=== PATIENT | male | born 1935 | race Caucasian/White ===

== ENCOUNTER 2017-07-28 12:37 | Emergency (ER) | payer OTHER ==
--- OUTSIDE RECORDS SUMMARY | 2017-07-28 12:41 | XMS REPORT | Clinical Summary ---
:1935 Author Organization [facility] Address [address] [place] [address] Phone Care Team Providers Name Role Phone Unavailable Primary Care Provider Unavailable Allergies No Known Allergies Current Medications Prescription Sig. Disp. Refills Start Date End Date Status atorvastatin (LIPITOR) 20 Take 20 mg by mouth Active MG tablet daily. multivitamin per tablet Take 1 tablet by Active mouth daily. Active Problems Not on file Social History Tobacco Use Types Packs/Day Years Used Date Never Smoker Smokeless Tobacco: Never Used Alcohol Use Drinks/Week oz/Week Comments Yes 1 Cans of beer 0.6 Sex Assigned at Date Recorded Not on file Last Filed Vital Signs Not on file Plan of Treatment Not on file Results Not on fileafter 07/27/2016
[2017-07-28 13:46] LABS: Absolute Lymphocytes (CBC) 1.2 K/uL (0.7-4.9); Absolute Monocytes 0.7 K/uL (0.1-1.3); Absolute Neutrophil 5.2 K/uL (1.8-8.0); Basophils % 0.7 % (0-1.3); Eosinophils % 0.7 % (0-4.4); Hematocrit 41.6 % (39.6-49.0); Lymphocytes % 16.9 % (15.3-44.8); MCH 30.9 pg (27.0-35.0); MCV 92.6 fL (80-100); MPV 8.8 fL (7.6-11.3); Monocytes % 9.6 % (3.3-12.3); RBC Red Blood Cell Count 4.49 M/uL (4.33-5.43)
[2017-07-28 13:48] LABS: Potassium 3.5 mEq/L (3.6-5.0)
[2017-07-28 13:52] LABS: Protime INR 1.02
[2017-07-28 13:54] LABS: Albumin 4.1 g/dL (3.2-5.5); Bilirubin Direct 0.1 mg/dL (0-0.2); Bilirubin Total 0.9 mg/dL (0.3-1.2); Magnesium 2.2 mg/dL (1.8-2.5); Protein, Total 6.8 g/dL (6.0-8.3)
--- NOTE | 2017-07-28 15:18 | RAD REPORT ---
EXAM DESCRIPTION: CT - Head Brain Wo Cont - 07/28/2017 2:42 pm CLINICAL HISTORY: Syncope, hypertension COMPARISON: CT March 2012 TECHNIQUE: Axial 5 mm thick images of the head were obtained without IV contrast. All CT scans are performed using dose optimization technique as appropriate and may include automated exposure control or mA/KV adjustment according to patient size. FINDINGS: No intracranial hemorrhage, mass, edema or shift of mid-line structures. Moderate atrophy and moderate chronic ischemic changes are present minimally progressive from 2012. No abnormal extra- axial fluid collections. Ventricles are in proportion to the volume loss. Arterial and physiologic ca lcifications are present. Mastoid air cells and visualized portions of the paranasal sinuses are clear. No acute bony findings. IMPRESSION: Atrophy and chronic ischemic changes are present mildly progressive from 2011. No acute intracranial finding.
--- NOTE | 2017-07-28 15:23 | RAD REPORT ---
EXAM DESCRIPTION: RAD - Chest Single View - 07/28/2017 2:23 pm CLINICAL HISTORY: Chest pain, altered mental status COMPARISON: March 2012 TECHNIQUE: AP portable chest image was obtained 1419 hours . FINDINGS: No failure, infiltrate or focal lung mass seen. Lung markings are similar to the compariso n. Trachea is midline. Heart and vasculature are normal. No measurable pleural effusion and no pneumo thorax. No gross bony abnormality seen. No acute aortic findings suspected. IMPRESSION: No acute cardiopulmonary process. No significant interval change.
--- NOTE | 2017-07-28 15:33 | ER ---
Nurse's Notes [facility] Name: Gigi Bar Age: 82 yrs Sex: Male : 1935 Arrival Date: 07/28/2017 Time: 12:40 Bed 8 Private MD: Diagnosis: Dehydration Presentation: 07/28 12:40 Presenting complaint: EMS states: Pt was doing yard work earlier to today and got la1 disoriented. When he got home he tried to sit on the coffee table and fell over injuring his right ear. -LOC, Pt alert, oriented x4. EMS reports + orthorstatics in the field. Transition of care: patient was not received from another setting of care. Onset of symptoms was July 28, 2017. Initial Sepsis Screen: Does the patient meet any 2 criteria? No. Patient's initial sepsis screen is negative. Does the patient have a suspected source of infection? No. Patient's initial sepsis screen is negative. Care prior to arrival: None. 12:40 Method Of Arrival: EMS: [facility] la1 12:40 Acuity: NATALIE 3 la1 Historical: - Allergies: 12:42 No Known Allergies; la1 - Home Meds: 12:57 metoprolol tartrate 50 mg Oral tab 1 tab 2 times per day [Active]; Norvasc Oral BID la1 [Active]; lisinopril 20 mg Oral tab 1 tab once daily [Active]; Lasix 40 mg Oral tab 1 tab once daily [Active]; Lipitor 40 mg Oral tab 1 tab once daily [Active]; hydrochlorothiazide 12.5 mg Oral cap 1 cap once daily [Active]; - PMHx: 12:42 Hypertension; la1 - Immunization history:: Adult Immunizations up to date. - Social history:: Smoking status: Patient/guardian denies using tobacco. Screenin:49 Abuse screen: Denies threats or abuse. Nutritional screening: No deficits noted. la1 Tuberculosis screening: No symptoms or risk factors identified. Fall Risk None identified. Assessment: 12:48 General: Appears in no apparent distress. Behavior is calm, cooperative. Pain: Denies la1 pain. Neuro: Level of Consciousness is awake, alert, obeys commands, Oriented to person, place, time, situation, Speech is normal, Facial symmetry appears normal, Pupils are PERRLA. Cardiovascular: Denies shortness of breath, Heart tones S1 S2 present Capillary refill < 3 seconds. Respiratory: Airway is patent Trachea midline Respiratory effort is even, unlabored, Respiratory pattern is regular, symmetrical, Breath sounds are clear bilaterally. GI: Abdomen is round non-distended. : No signs and/or symptoms were reported regarding the genitourinary system. 14:39 Reassessment: Patient appears in no apparent distress at this time. No changes from la1 previously documented assessment. Patient and/or family updated on plan of care and expected duration. Pain level reassessed. Patient is alert, oriented x 3, equal unlabored respirations, skin warm/dry/pink. 15:29 Reassessment: Patient appears in no apparent distress at this time. No changes from la1 previously documented assessment. Patient and/or family updated on plan of care and expected duration. Pain level reassessed. Patient is alert, oriented x 3, equal unlabored respirations, skin warm/dry/pink. Vital Signs: 12:43 BP 124 / 74; Pulse 57; Resp 16; Pulse Ox 100% on R/A; la1 12:55 Temp 98.2(O); la1 13:22 BP 116 / 69; Pulse 58; Resp 16 S; Pulse Ox 98% on R/A; ae1 13:35 BP 116 / 69 Supine; Pulse 60; la1 13:35 BP 135 / 70 Sitting; Pulse 59; la1 13:35 BP 116 / 63 Standing; Pulse 51; la1 14:39 BP 127 / 74; Pulse 81; Resp 16; Pulse Ox 100% on R/A; la1 15:28 BP 125 / 71; Pulse 81; Resp 16; Pulse Ox 100% on R/A; la1 ED Course: 12:40 Patient arrived in ED. pt 12:40 Jack Ross, ELIAS is Primary Nurse. la1 12:41 Triage completed. la1 12:42 Arm band placed on left wrist. la1 12:47 Darrion Lopez PA is PHCP. jr8 12:47 Chris Woodard MD is Attending Physician. jr8 12:48 No provider procedures requiring assistance completed. Maintain EMS IV. Site clean \T\ la1 dry. Gauge \T\ site: 20g RFA. 12:49 Bed in low position. Call light in reach. Side rails up X 1. la1 12:58 EKG done, by ED staff, reviewed by Darrion RAMSEY. jb1 14:20 X-ray completed. Portable x-ray completed in exam room. Patient tolerated procedure jb2 well. 14:21 XRAY Chest (1 view) In Process Unspecified. EDMS 14:[address] j 14:42 CT completed. Patient tolerated procedure well. Patient moved back from CT. nj 14:43 Head Brain Wo Cont CT In Process Unspecified. EDMS 15:43 IV discontinued, intact, bleeding controlled, No redness/swelling at site. Pressure la1 dressing applied. Administered Medications: No medications were administered Outcome: 15:32 Discharge ordered by . jr8 15:43 Discharged to home ambulatory. la1 15:43 Condition: stable 15:43 Discharge instructions given to patient, Instructed on discharge instructions, follow up and referral plans. medication usage, Demonstrated understanding of instructions, follow-up care. 15:43 Patient left the ED. la1 Signatures: Dispatcher [employer] EDMS Nestor Long jb1 Barbara Ruiz, Freddy Reynolds RN, pt2 Bonnie Leyva j Darrion Lopez PA PA jr8 Jack Ross RN RN la1 Dov Francisco RN RN ae1 Ariel Pang
--- NOTE | 2017-07-28 15:33 | EDPHYS ---
Physician Documentation [facility] Name: Gigi Bar Age: 82 yrs Sex: Male : 1935 Arrival Date: 07/28/2017 Time: 12:40 Bed 8 Private MD: ED Physician Chris Woodard HPI: 07/28 13:54 This 82 yrs old Male presents to ER via EMS with complaints of Near Syncope. jr8 13:54 The patient has experienced near-syncope. Onset: The symptoms/episode began/occurred jr8 acutely, today. Duration: This was a single episode. Context: the episode(s) was witnessed, by a bystander, by family. Associated signs and symptoms: Pertinent positives: dizziness. Current symptoms: Currently, the patient is not experiencing any symptoms, the patient feels back to baseline, no decreased level of consciousness, no confusion, no dysphasia, no headache, no paralysis, no visual changes. The patient has not experienced similar symptoms in the past. The patient has not recently seen a physician. Patient stated that he was working in [employer]. Left to go to [employer] to get some coffee. Stated that while at [employer] started to feel dizzy. EMS was called but refused transport. Noted on seen to have orthostatic changes. Patient drove himself home. While at home was going to sit down but sat on coffee table per then fell over hitting head on [employer] fireplace. Was convinced to come in at that time. Patient now back to baseline per family . Historical: - Allergies: 12:42 No Known Allergies; la1 - Home Meds: 12:57 metoprolol tartrate 50 mg Oral tab 1 tab 2 times per day [Active]; Norvasc Oral BID la1 [Active]; lisinopril 20 mg Oral tab 1 tab once daily [Active]; Lasix 40 mg Oral tab 1 tab once daily [Active]; Lipitor 40 mg Oral tab 1 tab once daily [Active]; hydrochlorothiazide 12.5 mg Oral cap 1 cap once daily [Active]; - PMHx: 12:42 Hypertension; la1 - Immunization history:: Adult Immunizations up to date. - Social history:: Smoking status: Patient/guardian denies using tobacco. ROS: 13:54 Eyes: Negative for injury, pain, redness, and discharge, ENT: Negative for injury, jr8 pain, and discharge, Neck: Negative for injury, pain, and swelling, Cardiovascular: Negative for chest pain, palpitations, and edema, Respiratory: Negative for shortness of breath, cough, wheezing, and pleuritic chest pain, Abdomen/GI: Negative for abdominal pain, nausea, vomiting, diarrhea, and constipation, Back: Negative for injury and pain, MS/Extremity: Negative for injury and deformity, Skin: Negative for injury, rash, and discoloration. 13:54 Neuro: Positive for dizziness, near syncope. Exam: 13:54 Eyes: Pupils equal round and reactive to light, extra-ocular motions intact. Lids and jr8 lashes normal. Conjunctiva and sclera are non-icteric and not injected. Cornea within normal limits. Periorbital areas with no swelling, redness, or edema. ENT: Nares patent. No nasal discharge, no septal abnormalities noted. Tympanic membranes are normal and external auditory canals are clear. Oropharynx with no redness, swelling, or masses, exudates, or evidence of obstruction, uvula midline. Mucous membranes moist. Neck: Trachea midline, no thyromegaly or masses palpated, and no cervical lymphadenopathy. Supple, full range of motion without nuchal rigidity, or vertebral point tenderness. No Meningismus. Cardiovascular: Regular rate and rhythm with a normal S1 and S2. No gallops, murmurs, or rubs. Normal PMI, no JVD. No pulse deficits. Respiratory: Lungs have equal breath sounds bilaterally, clear to auscultation and percussion. No rales, rhonchi or wheezes noted. No increased work of breathing, no retractions or nasal flaring. Abdomen/GI: Soft, non-tender, with normal bowel sounds. No distension or tympany. No guarding or rebound. No evidence of tenderness throughout. Back: No spinal tenderness. No costovertebral tenderness. Full range of motion. Skin: Warm, dry with normal turgor. Normal color with no rashes, no lesions, and no evidence of cellulitis. MS/ Extremity: Pulses equal, no cyanosis. Neurovascular intact. Full, normal range of motion. Neuro: Awake and alert, GCS 15, oriented to person, place, time, and situation. Cranial nerves II-XII grossly intact. Motor strength 5/5 in all extremities. Sensory grossly intact. Cerebellar exam normal. Normal gait. Vital Signs: 12:43 BP 124 / 74; Pulse 57; Resp 16; Pulse Ox 100% on R/A; la1 12:55 Temp 98.2(O); la1 13:22 BP 116 / 69; Pulse 58; Resp 16 S; Pulse Ox 98% on R/A; ae1 13:35 BP 116 / 69 Supine; Pulse 60; la1 13:35 BP 135 / 70 Sitting; Pulse 59; la1 13:35 BP 116 / 63 Standing; Pulse 51; la1 14:39 BP 127 / 74; Pulse 81; Resp 16; Pulse Ox 100% on R/A; la1 15:28 BP 125 / 71; Pulse 81; Resp 16; Pulse Ox 100% on R/A; la1 MDM: 12:47 Patient medically screened. jr8 15:28 Data reviewed: vital signs, nurses notes, lab test result(s), EKG, radiologic studies, jr8 plain films, and as a result, I will discharge patient. Data interpreted: Pulse oximetry: on room air is 100 %. Interpretation: normal. Counseling: I had a detailed discussion with the patient and/or guardian regarding: the historical points, exam findings, and any diagnostic results supporting the discharge/admit diagnosis, lab results, radiology results, the need for outpatient follow up, a family practitioner, to return to the emergency department if symptoms worsen or persist or if there are any questions or concerns that arise at home. ED course: Patient with minimal orthostatic changes earlier. After fluids normalized. Patient stable and without any s/s. Will send home to rest and replete with fluids. If he were to worsen again to come back to ED . 07/28 13:12 Order name: Basic Metabolic Panel; Complete Time: 13:56 07/28 13:12 Order name: BNP; Complete Time: 14:43 07/28 13:12 Order name: CBC with Diff; Complete Time: 13:47 07/28 13:12 Order name: LFT's; Complete Time: 13:56 07/28 13:12 Order name: Magnesium; Complete Time: 13:56 07/28 13:12 Order name: PT-INR; Complete Time: 14:29 07/28 13:07 Order name: EKG; Complete Time: 13:08 07/28 13:07 Order name: EKG - Nurse/Tech; Complete Time: 13:07 07/28 13:12 Order name: Troponin (emerg Dept Use Only); Complete Time: 13:56 07/28 13:12 Order name: XRAY Chest (1 view); Complete Time: 15:27 07/28 13:12 Order name: Cardiac monitoring; Complete Time: 13:13 07/28 13:12 Order name: IV Saline Lock; Complete Time: 13:13 07/28 14:26 Order name: Head Brain Wo Cont CT; Complete Time: 15:22 07/28 14:27 Order name: Diet Regular; Complete Time: 14:27 07/28 13:12 Order name: Labs collected and sent; Complete Time: 13:07/28 13:12 Order name: O2 Per Protocol; Complete Time: 13:28 07/28 13:12 Order name: O2 Sat Monitoring; Complete Time: 13:28 07/28 13:12 Order name: Urine Dipstick-Ancillary (obtain specimen); Complete Time: 15:42 07/28 13:12 Order name: Orthostatics; Complete Time: 14:25 Administered Medications: No medications were administered Disposition: 17:19 Co-signature as Attending Physician, Chris Woodard MD I agree with the assessment and kdr plan of care. Disposition: 07/28/17 15:32 Discharged to Home. Impression: Dehydration. - Condition is Stable. - Discharge Instructions: Dehydration, Elderly. - Medication Reconciliation Form, Thank You Letter, Antibiotic Education, Prescription Opioid Use form. - Follow up: Private Physician; When: 2 - 3 days; Reason: Recheck today's complaints, Continuance of care, Re-evaluation by your physician. - Problem is new. - Symptoms have improved. Signatures: Dispatcher [employer] EDChris Vazquez MD MD kdr Roszak, Josh, PA PA jr8 Jack Ross RN RN la1
[2017-07-28 15:52] VITALS: TEMP 98.2
[2017-07-28 15:56] VITALS: O2SAT 100
[2017-07-28 15:57] VITALS: BP 125/71
--- NOTE | 2017-07-28 16:24 | EKG ---
Test Date: 2017-07-28 Test Time: 12:50:45 Pharmacy Intake Coordinator: HAYLEY MEASUREMENT RESULTS: Intervals: Rate: 58 IN: 208 QRSD: 104 QT: 458 QTc: 449 [place]: P: 43 IN: 208 QRS: 28 T: 42 INTERPRETIVE STATEMENTS: Sinus bradycardia Otherwise normal ECG Compared to ECG 10/17/2012 09:57:53 No significant changes Electronically Signed On 07-28-17 16:23:27 CDT by Erickson Del Real
== END 2017-07-28 15:43 | disposition home or self-care (01) ==
LOC: ER 12:37
DX: E86.0 Dehydration (principal); R42 Dizziness and giddiness; I10 Essential (primary) hypertension; W08.XXXA Fall from other furniture, initial encounter; Y93.89 Activity, other specified; Y92.008 Other place in unspecified non-institutional (private) residence as the place of occurrence of the external cause
CPT/HCPCS: 36415; 70450; 71045; 80048; 80076; 83735; 83880; 84484; 85025; 85610; 93005; 99284

== ENCOUNTER 2019-06-03 17:40 | Emergency (ER) | payer OTHER ==
--- OUTSIDE RECORDS SUMMARY | 2019-06-03 18:03 | XMS REPORT ---
:1935 [facility] Address [address] [place] [address] Dr. Re[address]. [address] [place] [address] Care Team Providers Name Role Phone Unavailable Unavailable Unavailable Problems This patient has no known problems. Allergies, Adverse Reactions, Alerts This patient has no known allergies or adverse reactions. Medications This patient has no known medications.
[2019-06-03] MEDS ORDERED: ONDANSETRON 4 MG/2 ML VIAL ONE (18:32)
[2019-06-03] MEDS ORDERED: MORPHINE 2 MG/ML SYR ONE (18:32)
[2019-06-03 18:41] LABS: Absolute Lymphocytes (CBC) 2.6 K/uL (0.7-4.9); Basophils % 1.2 % (0-1.3); Hematocrit 41.4 % (39.6-49.0); Lymphocytes % 20.2 % (15.3-44.8); RBC Red Blood Cell Count 4.44 M/uL (4.33-5.43)
[2019-06-03 18:55] LABS: Albumin 3.5 g/dL (3.4-5.0); Bilirubin Total 0.5 mg/dL (0.2-1.0); Potassium 3.4 mmol/L (3.5-5.1); Protein, Total 7.1 g/dL (6.4-8.2); Uric Acid 7.3 mg/dL (3.5-7.2)
--- NOTE | 2019-06-03 19:24 | RAD REPORT ---
EXAM DESCRIPTION: RAD - Wrist Left 3 View - 06/03/2019 6:53 pm CLINICAL HISTORY: pain swelling COMPARISON: No comparisons FINDINGS: No fracture is identified. There is no dislocation or periosteal reaction noted. Radiocarp al joint space narrowing is present. Moderate severity degenerative change present at the trapezial f irst metacarpal articulation. Soft tissues over the distal forearm and wrist are prominent with the baseline for the patient is not known. No air or foreign body seen. 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 No acute bone or joint finding.
--- NOTE | 2019-06-03 19:55 | ER ---
Nurse's Notes [facility] Name: Gigi Bar Age: 84 yrs Sex: Male : 1935 Arrival Date: 06/03/2019 Time: 17:42 Bed 19 Private MD: Diagnosis: Cellulitis of left upper limb Presentation: 06/02 17:59 Chief complaint: Patient states: Redness, swelling and rash on the L hand and wrist ca1 started about 2-3 hours ago. Coronavirus screen: The patient has NOT traveled to [place] in the past 14 days. The patient has NOT had contact with known and/or suspected case of Coronavirus. Ebola Screen: Patient negative for fever greater than or equal to 101.5 degrees Fahrenheit, and additional compatible Ebola Virus Disease symptoms Patient denies exposure to infectious person. Patient denies travel to an Ebola-affected area in the 21 days before illness onset. No symptoms or risks identified at this time. Initial Sepsis Screen: Does the patient meet any 2 criteria? No. Patient's initial sepsis screen is negative. Risk Assessment: Do you want to hurt yourself or someone else? Patient reports no desire to harm self or others. 17:59 Method Of Arrival: Ambulatory ca1 17:59 Acuity: NATALIE 4 ca1 18:40 Initial Sepsis Screen: Does the patient have a suspected source of infection? No. mg2 Patient's initial sepsis screen is negative. Onset of symptoms was June 03, 2019 at 16:00. Historical: - Allergies: 18:03 No Known Allergies; ca1 - PMHx: 18:03 Hypertension; prostate cancer; ca1 - PSHx: 18:03 None; ca1 - Immunization history:: Adult Immunizations not up to date, Pneumococcal vaccine is not up to date, Flu vaccine is not up to date. - Social history:: Smoking status: Patient denies any tobacco usage or history of. Screenin:35 Abuse screen: Denies threats or abuse. Denies injuries from another. Nutritional mg2 screening: No deficits noted. Tuberculosis screening: No symptoms or risk factors identified. Fall Risk IV access (20 points). Assessment: 18:31 General: Appears in no apparent distress. comfortable, Behavior is calm, cooperative. mg2 Pain: Complains of pain in left wrist. Neuro: Level of Consciousness is awake, alert, obeys commands, Oriented to person, place, time, situation. Cardiovascular: Capillary refill < 3 seconds Patient's skin is warm and dry. Respiratory: Airway is patent Respiratory effort is even, unlabored, Respiratory pattern is regular, symmetrical. GI: No signs and/or symptoms were reported involving the gastrointestinal system. : No signs and/or symptoms were reported regarding the genitourinary system. EENT: No signs and/or symptoms were reported regarding the EENT system. Derm: Skin is intact, is healthy with good turgor, Skin is pink, warm \T\ dry. normal, redness and swelling noted in the left wrist. Musculoskeletal: Circulation, motion, and sensation intact. Capillary refill < 3 seconds, Swelling present in left wrist. 19:18 General: Appears in no apparent distress. comfortable, Behavior is calm, cooperative. jv1 Pain: Complains of pain in left wrist. Neuro: Level of Consciousness is awake, alert, obeys commands, Oriented to person, place, time, situation. Cardiovascular: Denies chest pain, Capillary refill < 3 seconds Patient's skin is warm and dry. Respiratory: Airway is patent Respiratory effort is even, Respiratory pattern is regular, symmetrical. GI: No signs and/or symptoms were reported involving the gastrointestinal system. : No signs and/or symptoms were reported regarding the genitourinary system. EENT: No signs and/or symptoms were reported regarding the EENT system. Derm: Skin is intact, is healthy with good turgor, Skin is pink, warm \T\ dry. normal. Musculoskeletal: Circulation, motion, and sensation intact. Capillary refill Swelling present in left wrist. 20:12 Reassessment: Patient denies pain at this time. Patient states feeling better. Patient jv1 states symptoms have improved. provider in the room with pt. . Vital Signs: 17:59 BP 148 / 96; Pulse 79; Resp 16 S; Temp 97.8(TE); Pulse Ox 97% on R/A; Weight 81.65 kg ca1 (R); Height 6 ft. (182.88 cm) (R); 18:41 BP 139 / 99; Pulse 89; Resp 18; Pulse Ox 100% on R/A; mg2 20:13 BP 126 / 80; Pulse 88; Resp 18; Temp 98; Pulse Ox 99% ; Pain 0/10; jv1 17:59 Body Mass Index 24.41 (81.65 kg, 182.88 cm) ca1 ED Course: 17:42 Patient arrived in ED. ag5 18:02 Triage completed. ca1 18:03 Arm band placed on right wrist. ca1 18:05 Brayden Johnson PA is PHCP. [facility] 18:05 Viral Cross MD is Attending Physician. [facility] 18:23 Raji Dorado, RN is Primary Nurse. mg2 18:33 Initial lab(s) drawn, by me, sent to lab. Inserted saline lock: 20 gauge in right lt1 forearm, using aseptic technique. Blood collected. 18:40 Patient has correct armband on for positive identification. Pulse ox on. NIBP on. Door mg2 closed. Warm blanket given. 18:41 No provider procedures requiring assistance completed. mg2 18:53 Wrist Left (3 View) XRAY In Process Unspecified. EDMS 20:14 IV discontinued, intact, bleeding controlled, No redness/swelling at site. Pressure jv1 dressing applied. Administered Medications: 18:42 Drug: morphine 2 mg Route: IVP; Site: right forearm; mg2 18:42 Drug: Zofran (Ondansetron) 4 mg Route: IVP; Site: right forearm; mg2 Outcome: 19:54 Discharge ordered by MD. jmm 20:14 Discharged to home ambulatory. jv1 20:14 Condition: good 20:14 Discharge instructions given to patient, significant other, Instructed on discharge instructions, follow up and referral plans. medication usage, Demonstrated understanding of instructions, follow-up care, medications, Prescriptions given X 2. 20:15 Patient left the ED. jv1 Signatures: Dispatcher [employer] EDAK Brayden Johnson PA PA [facility] Raji Dorado, RN RN mg2 Shanna Brush RN RN jv1 Mary Alcantar RN RN ca1 Jerald Handley ag5 Amaro, Yamileth lt1
--- NOTE | 2019-06-03 19:55 | EDPHYS ---
Physician Documentation [facility] Name: Gigi Bar Age: 84 yrs Sex: Male : 1935 Arrival Date: 06/03/2019 Time: 17:42 Bed 19 Private MD: ED Physician Viral Cross HPI: 06/02 18:20 This 84 yrs old Male presents to ER via Ambulatory with complaints of Hand jmm Problem. 18:20 The patient or guardian complains of pain, that is acute. Onset: The symptoms/episode jmm began/occurred today. Modifying factors: The symptoms are alleviated by nothing. the symptoms are aggravated by movement. Associated signs and symptoms: Pertinent negatives: fever. This is an 84 year old male with a history of htn, that presents to the ED with complaints of swelling, redness and pain to the left wrist which began earlier today. Patient states before that he had scraped his wrist. Denies history of gout, arthritis. . Historical: - Allergies: 18:03 No Known Allergies; ca1 - PMHx: 18:03 Hypertension; prostate cancer; ca1 - PSHx: 18:03 None; ca1 - Immunization history:: Adult Immunizations not up to date, Pneumococcal vaccine is not up to date, Flu vaccine is not up to date. - Social history:: Smoking status: Patient denies any tobacco usage or history of. ROS: 18:20 Cardiovascular: Negative for chest pain, palpitations, and edema, Respiratory: Negative jmm for shortness of breath, cough, wheezing, and pleuritic chest pain, Abdomen/GI: Negative for abdominal pain, nausea, vomiting, diarrhea, and constipation. 18:20 Constitutional: Negative for body aches, fever. 18:20 MS/extremity: Positive for pain, swelling. 18:20 All other systems are negative. Exam: 18:20 Constitutional: This is a well developed, well nourished patient who is awake, alert, jmm and in no acute distress. Head/Face: atraumatic. Eyes: EOMI, no conjunctival erythema appreciated ENT: Moist Mucus Membranes Neck: Trachea midline, Supple Chest/axilla: Normal chest wall appearance and motion. Cardiovascular: Regular rate and rhythm. No edema appreciated Respiratory: Normal respirations, no respiratory distress appreciated Abdomen/GI: Non distended, soft Back: Normal ROM 18:20 Musculoskeletal/extremity: FROM appreciated to the left wrist, full radial pulse, compartments are soft, NVI. 18:20 Skin: erythema noted to the dorsal side of the left wrist, an abrasion is noted on the ulnar side, ttp. 18:20 Neuro: Orientation: is normal, Mentation: is normal, Memory: is normal. 18:20 Psych: Behavior/mood is pleasant, cooperative. Vital Signs: 17:59 BP 148 / 96; Pulse 79; Resp 16 S; Temp 97.8(TE); Pulse Ox 97% on R/A; Weight 81.65 kg ca1 (R); Height 6 ft. (182.88 cm) (R); 18:41 BP 139 / 99; Pulse 89; Resp 18; Pulse Ox 100% on R/A; mg2 20:13 BP 126 / 80; Pulse 88; Resp 18; Temp 98; Pulse Ox 99% ; Pain 0/10; jv1 17:59 Body Mass Index 24.41 (81.65 kg, 182.88 cm) ca1 MDM: 18:13 Patient medically screened. [facility] 19:51 Data reviewed: vital signs, nurses notes. Counseling: I had a detailed discussion with odalys the patient and/or guardian regarding: the historical points, exam findings, and any diagnostic results supporting the discharge/admit diagnosis, radiology results, the need for outpatient follow up, to return to the emergency department if symptoms worsen or persist or if there are any questions or concerns that arise at home. ED course: Patient is alert and non toxic in appearance in the ED. Due to concerns for cellulitis, patient will be treated with oral abx. Patient is advised to follow up with PCP for reevaluation. patient understood and agrees with the plan of care. . 19:57 ED course: [facility] lookup revealed no record of rx. [facility] 06/02 18:20 Order name: CBC with Diff; Complete Time: 18:59 [facility] 06/02 18:20 Order name: CMP; Complete Time: 18:59 [facility] 06/02 18:20 Order name: Procalcitonin; Complete Time: 20:02 [facility] 06/02 18:20 Order name: Lactate; Complete Time: 20:02 [facility] 06/02 18:20 Order name: Uric Acid; Complete Time: 18:59 [facility] 06/02 18:20 Order name: Wrist Left (3 View) XRAY; Complete Time: 19:27 odalys 06/02 18:20 Order name: Saline Lock; Complete Time: 18:34 [facility] Administered Medications: 18:42 Drug: morphine 2 mg Route: IVP; Site: right forearm; mg2 18:42 Drug: Zofran (Ondansetron) 4 mg Route: IVP; Site: right forearm; mg2 Disposition: 06/03 07:24 Co-signature as Attending Physician, Viral Cross MD I agree with the assessment and william plan of care. Disposition: 06/03/19 19:54 Discharged to Home. Impression: Cellulitis of left upper limb. - Condition is Stable. - Discharge Instructions: Cellulitis, Adult. - Prescriptions for Ultracet 37.5- 325 mg Oral Tablet - take 1 tablet by ORAL route every 6 hours - for up to 5 days; do not exceed 8 tablets per day.; 12 tablet. Bactrim DS 800- 160 mg Oral Tablet - take 1 tablet by ORAL route every 12 hours for 10 days; 20 tablet. - Medication Reconciliation Form, Thank You Letter, Antibiotic Education, Prescription Opioid Use form. - Follow up: Private Physician; When: 2 - 3 days; Reason: Recheck today's complaints, Continuance of care, Re-evaluation by your physician. Signatures: Dispatcher [employer] Viral Mcdonald MD MD cha Mickail, Joel, PA PA [facility] Raji Dorado, RN ELIAS mg2 Shanna Brush RN RN jv1 Mary Alcantar RN RN ca1 Corrections: (The following items were deleted from the chart) 06/02 20:15 19:54 06/03/2019 19:54 Discharged to Home. Impression: Cellulitis of left upper limb. jv1 Condition is Stable. Forms are Medication Reconciliation Form, Thank You Letter, Antibiotic Education, Prescription Opioid Use. Follow up: Private Physician; When: 2 - 3 days; Reason: Recheck today's complaints, Continuance of care, Re-evaluation by your physician. [facility]
[2019-06-03 21:55] VITALS: BP 126/80; TEMP 98; O2SAT 99
== END 2019-06-03 20:15 | disposition home or self-care (01) ==
LOC: ER 17:40
DX: L03.114 Cellulitis of left upper limb (principal); Z85.46 Personal history of malignant neoplasm of prostate
CPT/HCPCS: 85025; 36415; 84550; 83605; 80053; 84145; 73110; 96375; 96374; 99284; J2270; J2405

== ENCOUNTER 2022-03-08 18:19 | Observation (INO) | payer OTHER ==
--- OUTSIDE RECORDS SUMMARY | 2022-03-08 18:22 | XMS REPORT | Continuity of Care Document ---
:[address] [facility] t Address [address] [place] [address] Care Team Providers Name Role Phone Cezar Arrington MD Primary Care Physician Rory Noonan Attending Clinician Pillo PAEZ, Declan Rodriguez Attending Clinician 1, [facility] Attending Clinician Unavailable Doctor Unassigned, [place] Attending Clinician Unavailable Payers Payer Name Policy Type Policy Number Effective Date Expiration Date S ource Problems Condition Condition Condition Status Onset Resolution Last Treating Co mments Source Name Details Category Date Date Treatment Clinician Date Erectile Erectile Disease Active [facility] dysfunctio dysfunctio 12-02 Co llege n n 00:00: of following following 00 Medi sarah radical radical e prostatect prostatect enmanuel enmanuel Lower Lower Disease Active [facility] urinary urinary 12-02 College tract tract 00:00: of symptoms symptoms 00 Medici n (LUTS) (LUTS) e 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 08-15 Co llege sm sm 00:00: of 00 Medicin e Special Special Disease Active [facility] screening screening 08-15 [place] [facility] for for 00:00: of malignant malignant 00 Medi sarah neoplasm neoplasm e of of prostate prostate Dementia Dementia Problem Active 2022-02-19 Memoria (disorder) (disorder) 13:03:52 l Active [place] Problem 02/19/2022 [facility] Hyperlipid Hyperlipi Problem Active 2022-02-19 Memoria emia demia 13:03:52 l (disorder) (disorder) He rmann Active Problem 02/19/2022 [facility] Hypertensi Hypertens Problem Active 2022-02-19 Memoria ve arianne 13:03:52 l disorder, disorder, Herm reginaldo systemic systemic arterial arterial (disorder) (disorder) Active Problem 02/19/2022 [facility] Memory Memory Problem Active 2022-02-19 Mem oria impairment impairment 13:03:52 l (finding) (finding) Herm reginaldo Active Problem 02/19/2022 [facility] Allergies, Adverse Reactions, Alerts This patient has no known allergies or adverse reactions. Social History Social Habit Start Date Stop Date Quantity Comments Source Social History 2018-10-10 2018-10-10 [facility] jannettereginaldo 20:24:27 20:24:27 Alcohol intake 2015-11-20 2015-11-20 [facility] drinker [facility]00 of alcohol [facility] (finding) Tobacco use and 2015-11-13 2015-11-[address] [facility] exposure [facility] Sex Assigned At [address] [facility] Smoking Status Start Date Stop Date Source Tobacco smoking status 2022-02-16 19:25:06 2022-02-16 19:25:06 brisa Heath Never smoker [facility] Medicine Medications Ordered Filled Start Stop Current Ordering Indication Dosage Frequency Signature Comments Components Source Medication Medication Date Date Medication? Clinician (SIG) Name Name rivastigmin Yes = 1 cap, Me moria e 6 mg oral 9-07 PO, BID, # l capsule 16:42: 180 [place] unknown unit, 1 Refill(s), Pharmacy: [facility], 177.8, cm, 10/15/21 13:30:00 CDT, Height, 81.364, kg, 10/15/21 13:30:00 CDT, Weight memantine 2021-0 Yes 10 mg = 1 Mem oria 10 mg oral 7-15 tab, PO, l tablet 18:57: BID, # 180 Mildred nn 00 tab, 1 Refill(s), Pharmacy: [facility], 177.8, cm, 10/15/21 13:30:00 CDT, Height, 81.364, kg, 10/15/21 13:30:00 CDT, Weight solifenacin 0 Yes TAKE 1 Deo lukas 10 mg oral 7-15 TABLET BY l tablet 18:40: MOUTH ONCE Mildred nn 00 DAILY memantine 5 0 Yes = 1 tab, Me moria mg oral 2-17 PO, BID, # l tablet 19:41: 180 tab, 1 Mildred nn 00 Refill(s), Pharmacy: [facility], 177.8, cm, 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, Height, 86.364, kg, 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, Weight rivastigmin 0 Yes = 1 cap, Me moria e 6 mg oral 2-17 PO, BID, # l capsule 19:41: 180 cap, 1 Herm reginaldo 00 Refill(s), Pharmacy: [facility], 177.8, cm, 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, Height, 86.364, kg, 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, Weight rivastigmin 2020-0 Yes 6 mg = 1 Me moria e 6 mg oral 1-13 cap, PO, l capsule 14:11: BID, # 60 Mildred nn 00 cap, 4 Refill(s), Pharmacy: [facility], 180.34, cm, 11/08/19 13:22:00 CDT, Height, 85.909, kg, 11/08/19 13:22:00 CDT, Weight rivastigmin 2020-0 Yes = 1 cap, Me moria e 4.5 mg 8-07 PO, BID, # l oral 18:34: 60 ea, 3 [place] capsule 00 Refill(s), Pharmacy: [facility], 180.34, cm, 11/08/19 13:22:00 CDT, Height, 85.909, kg, 11/08/19 13:22:00 CDT, Weight memantine 5 2019- Yes 5 mg = 1 Me moria mg oral 8-07 tab, PO, l tablet 18:33: BID, # 60 Nick n 00 tab, 4 Refill(s), Pharmacy: [facility], 180.34, cm, 11/08/19 13:22:00 CDT, Height, 85.909, kg, 11/08/19 13:22:00 CDT, Weight Memantine Yes 10 mg = 1 Mem oria hydrochlori 2-04 tab, PO, l de 10 MG 20:14: BID, # 60 Herm reginaldo Oral Tablet 00 tab, 3 [Namenda] Refill(s), Pharmacy: [facility] atorvastati 2018-04 Yes 20mg Take 20 mg [facility] n (LIPITOR) 0-28 by mouth. Col lege 20 MG 20:01: of tablet 03 Medicin e Multiple 2018-04 Yes 1{tbl} Take 1 Bay[facility] r Vitamin 0-28 tablet by [place] (MULTI-YAMILET 20:01: mouth. of [facility]) TABS 03 Medicin e solifenacin 2018-04 Yes [id number] 10mg Take 1 Tab Vipul (VESICARE) 0-28 by mouth Colle ge 10 MG 00:00: daily. of tablet 00 Medicin e Memantine 2018-04 Yes 5 mg = 1 Deo lukas hydrochlori 0-08 tab, PO, l de 5 MG 19:11: BID, # 60 Mildred nn Oral Tablet 00 tab, 3 [Namenda] Refill(s), Pharmacy: [facility] rivastigmin Yes 4.5 mg = 1 Memoria e 4.5 mg 8-06 cap, PO, l oral 18:49: BID, # 60 Kumar capsule 00 cap, 3 Refill(s), Pharmacy: [facility] Aspirin 81 Yes 81 mg = 1 Me moria MG Enteric 7-10 tab, PO, l Coated 21:22: Daily, # Kumar Tablet 00 90 tab, 3 Refill(s) aspirin 81 Yes 81 mg = 1 Me moria mg tablet, 7-10 tab, PO, l enteric 21:22: Daily, # Nick n coated 00 90 tab, 3 Refill(s) rivastigmin 2019-0 Yes 3 mg = 1 Me moria e 3 mg oral 7-10 cap, PO, l capsule 21:12: BID, # 60 Mildred nn 00 cap, 3 Refill(s), Pharmacy: [facility] rivastigmin 2019-0 No 5 mg, PO, M emoria e 7-10 Daily, 0 l 20:09: Refill(s) metoprolol 2018-0 Yes 50 mg, PO, M emoria extended 7-10 Daily, 0 l release 20:09: Refill(s) Lisinopril 2019-0 Yes 10 mg, PO, M emoria 7-10 Daily, 0 l 20:09: Refill(s) Norvasc 2018-0 Yes 5 mg, PO, Memor ia 7-10 Daily, 0 l 20:09: Refill(s) Furosemide 2019-0 Yes 40 mg = 1 Me moria 40 MG Oral 7-10 tab, PO, l Tablet 20:09: Daily, 0 [Lasix] Refill(s) atorvastati 0 Yes 40 mg, PO, Memoria n 7-10 Daily, 0 l 20:09: Refill(s) atorvastati 2019-0 Yes 40 mg, PO, Memoria n 7-10 Daily, 0 l 20:09: Refill(s) Lasix 40 mg 2019- Yes 40 mg = 1 M emoria oral tablet 7-10 tab, PO, l 20:09: Daily, 0 Refill(s) Norvasc 2018-0 Yes 5 mg, PO, Memor ia 7-10 BID, 0 l 20:09: Refill(s) lisinopril 2018-0 Yes 10 mg, PO, M emoria 7-10 Daily, 0 l 20:09: Refill(s) Cabergoline 2017-04 Yes .5mg Take 0.5 Ba ylor 0.5 MG TABS 2-10 mg by College 00:00: mouth 2 of 00 times Medicin weekly. e solifenacin 2017-04 2019- No [id number] 10mg Take 1 Tab Vipul (VESICARE) 2-10 10-28 by mouth [place] [facility] 10 MG 00:00: 00:00 daily. of tablet 00 :00 Medicin e VIAGRA 100 2016-04 Yes [id number] TAKE ONE Vipul MG tablet 04-09 TABLET BY Colle ge 00:00: MOUTH of 00 DIRECTED Medicin e tadalafil Yes 5mg Take 1 Tab Ba ylor (CIALIS) 5 8-16 by mouth Colle ge MG tablet 00:00: as needed of 00 for Medicin Erectile e Dysfunctio n. atorvastati Yes 20mg QD Take [address] [facility] (LIPITOR) 8-18 by mouth Luke s 20 MG 16:17: daily. Medical tablet 26 Lilly multivitaky Yes 1{tbl} QD Take [address] [facility] per 8-18 tablet by [facility] tablet 16:17: mouth Medical 26 daily. Lilly atorvasta Yes 20mg QD Take [address] [facility] (LIPITOR) 8-18 by mouth Luke s 20 MG 16:17: daily. Medical tablet 26 Lilly atorvasta Yes 20mg QD Take [address] [facility] (LIPITOR) 8-18 by mouth Luke s 20 MG 16:17: daily. Medical tablet 26 Lilly multivitami Yes 1{tbl} QD Take [address] [facility] per 8-18 tablet by [facility] tablet 16:17: mouth Medical 26 daily. Lilly multivitami Yes 1{tbl} QD Take [address] [facility] per 8-18 tablet by [facility] tablet 16:17: mouth Medical 26 daily. Lilly celecoxib Yes 200mg Take 1 Cap B aylor (CELEBREX) 8-24 by mouth Colle ge 200 MG 00:00: daily. of capsule 00 Medicin e Avanafil 2013- Yes 200mg Take 200 [facility] (STENDRA) 5-14 mg by [place] 200 MG TABS 00:00: mouth as of 00 needed. Medicin e Immunizations Ordered Immunization Filled Immunization Date Status Commen ts Source Name Name Influenza (whole) 2010-03-03 Completed [facility] 00:00:00 of Medicine Vital Signs Vital Name Observation Time Observation Value Comments Source Systolic blood 2019-01-28 20:00:00 121 mm[Hg] [facility] pressure Medicine Diastolic blood 2019-01-28 20:00:00 69 mm[Hg] [facility] pressure Medicine Heart rate 2019-01-28 20:00:00 83 /min [facility] Body height 2019-01-28 20:00:00 182.9 cm [facility] Body weight 2019-01-28 20:00:00 83.915 kg [facility] BMI 2019-01-28 20:00:00 25.09 kg/m2 [facility] Systolic blood 2019-01-28 20:00:00 121 mm[Hg] [facility] Medicine Diastolic blood 2019-01-28 20:00:00 69 mm[Hg] [facility] Medicine Heart rate 2019-01-28 20:00:00 83 /min [facility] Body height 2019-01-28 20:00:00 182.9 cm [facility] Body weight 2019-01-28 20:00:00 83.915 kg [facility] BMI 2019-01-28 20:00:00 25.09 kg/m2 [facility] Systolic (mm Hg) 2022-02-16 19:24:00 Deo rial Kumar Diastolic (mm Hg) 2022-02-16 19:24:00 Mem orial [place] Heart Rate 2022-02-16 19:24:00 [facility] Height 2022-02-16 19:24:00 5 [ft_i] [facility] Weight 2022-02-16 19:24:00 [facility] [place] BMI Calculated 2022-02-16 19:24:00 Memori al Kumar Systolic (mm Hg) 2021-10-15 18:22:00 Deo rial [place] Diastolic (mm Hg) 2021-10-15 18:22:00 Mem orial Kumar Heart Rate 2021-10-15 18:22:00 [facility] Kumar Respitory Rate 2021-10-15 18:22:00 Memori al [place] Height 2021-10-15 18:22:00 177.8 cm [facility] [place] Weight 2021-10-15 18:22:00 [facility] Kumar BMI Calculated 2021-10-15 18:22:00 Memori al Kumar Systolic (mm Hg) 2021-05-20 19:13:00 Deo rial [place] Diastolic (mm Hg) 2021-05-20 19:13:00 Mem orial Kumar Heart Rate 2021-05-20 19:13:00 [facility] [place] Respitory Rate 2021-05-20 19:13:00 Memori al [place] Height 2021-05-20 19:13:00 177.8 cm [facility] Kumar Weight 2021-05-20 19:13:00 [facility] Kumar BMI Calculated 2021-05-20 19:13:00 Memori al [place] Systolic (mm Hg) 2020-11-10 18:35:00 Deo rial Kumar Diastolic (mm Hg) 2020-11-10 18:35:00 Mem orial Kumar Heart Rate 2020-11-10 18:35:00 [facility] Kumar Respitory Rate 2020-11-10 18:35:00 Memori al [place] Height 2020-11-10 18:35:00 177.8 cm [facility] Kumar Weight 2020-11-10 18:35:00 [facility] [place] BMI Calculated 2020-11-10 18:35:00 Memori al Kumar Systolic (mm Hg) 2020-05-12 19:40:00 Deo rial Kumar Diastolic (mm Hg) 2020-05-12 19:40:00 Mem orial [place] Heart Rate 2020-05-12 19:40:00 [facility] [place] Height 2020-05-12 19:40:00 182.88 cm [facility] Kumar Weight 2020-05-12 19:40:00 [facility] Kumar BMI Calculated 2020-05-12 19:40:00 Memori al Kumar Systolic (mm Hg) 2019-11-08 18:22:00 Deo rial [place] Diastolic (mm Hg) 2019-11-08 18:22:00 Mem orial Kumar Heart Rate 2019-11-08 18:22:00 [facility] [place] Respitory Rate 2019-11-08 18:22:00 Memori al [place] Height 2019-11-08 18:22:00 180.34 cm [facility] [place] Weight 2019-11-08 18:22:00 [facility] [place] BMI Calculated 2019-11-08 18:22:00 Memori al [place] Heart Rate 2019-05-07 19:42:00 [facility] Kumar Respitory Rate 2019-05-07 19:42:00 Memori al [place] Height 2019-05-07 19:42:00 182.88 cm [facility] [place] Weight 2019-05-07 19:42:00 [facility] Kumar BMI Calculated 2019-05-07 19:42:00 Memori al Kumar Systolic (mm Hg) 2019-05-07 19:42:00 Deo rial Kumar Diastolic (mm Hg) 2019-05-07 19:42:00 Mem orial [place] Systolic (mm Hg) 2019-01-08 18:42:00 Deo rial Kumar Diastolic (mm Hg) 2019-01-08 18:42:00 Mem orial [place] Heart Rate 2019-01-08 18:42:00 [facility] Kumar Respitory Rate 2019-01-08 18:42:00 Memori al [place] Height 2019-01-08 18:42:00 182.88 cm [facility] [place] Weight 2019-01-08 18:42:00 [facility] Kumar BMI Calculated 2019-01-08 18:42:00 Memori al [place] Weight 2018-11-06 18:16:00 [facility] Kumar BMI Calculated 2018-11-06 18:16:00 Memori al Kumar Heart Rate 2018-11-06 18:16:00 [facility] [place] Height 2018-11-06 18:16:00 177.8 cm [facility] [place] Systolic (mm Hg) 2018-11-06 18:16:00 Deo rial [place] Diastolic (mm Hg) 2018-11-06 18:16:00 Mem orial Kumar BMI Calculated 2018-10-10 19:58:00 Memori al [place] Height 2018-10-10 19:58:00 177.8 cm [facility] Kumar Weight 2018-10-10 19:58:00 [facility] Kumar Systolic (mm Hg) 2018-10-10 19:58:00 Deo rial Kumar Diastolic (mm Hg) 2018-10-10 19:58:00 Mem orial [place] Heart Rate 2018-10-10 19:58:00 [facility] Kumar Respitory Rate 2018-10-10 19:58:00 Memori al Kumar Procedures Procedure Date / Time Performed Performing Clinician [facility] e PSA,TOTAL AND FREE 2019-01-28 22:33:00 Declan Ferro I [facility] Plan of Care Planned Activity Planned Date Details Comments Source Future Scheduled TESTOSTERONE, Ordered: [facility] Col lege of Test FREE/TOTAL SHGB 01/28/2019 Medicine [code = NOCPT] Future Scheduled MEDICARE AWV [code [facility] College of Test = MEDICARE AWV] Medicine Future Scheduled TETANUS SHOT [facility] [place] [facility] of Test (ADULT) [code = Medicine TETANUS SHOT (ADULT)] Future Scheduled BMI FOLLOW UP PLAN [facility] College of Test [code = BMI FOLLOW Medicine UP PLAN] Future Scheduled FALL SCREEN [code = [facility] of Test FALL SCREEN] Medicine Future Scheduled PNEUMOVAX >=65 [facility] Co llege of Test (PPSV23) [code = Medicine PNEUMOVAX >=65 (PPSV23)] Future Scheduled PREVNAR >= 65 [facility] Col lege of Test (PCV13) [code = Medicine PREVNAR >= 65 (PCV13)] Future Scheduled FLU VACCINE > 6 [facility] C ollege of Test MONTHS [code = FLU Medicine VACCINE > 6 MONTHS] Encounters Start End Encounter Admission Attending Care Care Encounter Source Date/Time Date/Time Type Type Clinicians Facility Department ID 2022-06-16 2022-06-16 Outpatient MHIE HUONGIE [id number] Memoria 13:15:00 13:15:00 12 alex Heath 2022-02-16 2022-02-17 Outpatient HUONGIE MNA [id number] Memoria 19:15:00 05:59:59 Neurology 11 alex Heath 2022-02-16 2022-02-16 [id number] 13:15:00 23:59:59 Rory Wanda Kendlal 2022-02-16 2022-02-16 Outpatient MHIE HUONGIE [id number] Memoria 13:15:00 13:15:00 11 alex Heath 2021-10-15 2021-10-16 Outpatient nullFlavo MNA [id number] Memoria 18:15:00 04:59:59 r Neurology 10 alex Heath 2021-10-15 2021-10-15 Outpatient SHERWIN Noonan [facility] [id number] 13:15:00 23:59:59 Rory 10 Kendall 2021-10-15 2021-10-15 Outpatient MHIE MHIE [id number] Memoria 13:15:00 13:15:00 10 alex Heath 2021-05-20 2021-05-21 Outpatient nullFlavo MNA [id number] Memoria 19:00:00 05:59:59 r Neurology 09 l Jocy Heath 2021-05-20 2021-05-20 Outpatient DONG NoonanSCHSAPNA [facility]ISCHER [id number] 13:00:00 23:59:59 Rory 09 Kendall 2021-05-20 2021-05-20 Outpatient MHIE MHIE [id number] Memoria 13:00:00 13:00:00 09 alex Heath 2021-03-09 2021-03-09 Ambulatory nullFlavo MNA [id number] Memoria 19:45:00 19:45:00 Pre-Reg r Neurology 08 l Jocy Lucianoann 2021-03-09 2021-03-09 Outpatient MHIE MHIE [id number] Memoria 13:45:00 13:45:00 08 alex Heath 2021-03-09 2021-03-09 Outpatient SEHRWIN NoonanSCHER [id number] 13:45:00 13:45:00 Rory 08 Kendall 2020-11-10 2020-11-11 Outpatient nullFlavo MNA [id number] Memoria 18:15:00 04:59:59 r Neurology 07 alex Lucianoann 2020-11-10 2020-11-10 Outpatient SHERWIN NoonanSCHER [id number] 13:15:00 23:59:59 Rory 07 Kendall 2020-11-10 2020-11-10 Outpatient MHIE MHIE [id number] Memoria 13:15:00 13:15:00 07 alex Heath 2020-05-26 2020-05-28 Outside nullFlavo MNA [id number] Memoria 21:07:06 05:59:59 Medical r Neurology 00 l Records Jocy Kumar 2020-05-26 2020-05-27 Outpatient MHMISCHER MHMISCHER [id number] 15:07:06 23:59:59 00 2020-05-12 2020-05-13 Outpatient nullFlavo MNA [id number] Memoria 19:30:00 05:59:59 r Neurology 06 l Jocy Lucianoann 2020-05-12 2020-05-12 Outpatient HUONG NoonanMISCHER MHMISCHER [id number] 13:30:00 23:59:59 Rory 06 Kendall 2020-05-12 2020-05-12 Outpatient MHIE MHIE [id number] Memoria 13:30:00 13:30:00 06 alex Kumar 2019-11-08 2019-11-09 Outpatient nullFlavo MNA [id number] Memoria 18:00:00 04:59:59 r Neurology 05 l Vandervoort Kumar 2019-11-08 2019-11-08 Outpatient HUONG NoonanMISCHER MHMISCHER [id number] 13:00:00 23:59:59 Rory 05 Kendall 2019-11-08 2019-11-08 Outpatient MHIE MHIE [id number] Memoria 13:00:00 13:00:00 05 alex Kumar 2019-11-05 2019-11-05 Outpatient MHIE MHIE [id number] Memoria 13:30:00 13:30:00 04 alex Kumar 2019-05-07 2019-05-08 Outpatient nullFlavo MNA [id number] Memoria 19:30:00 05:59:59 r Neurology 03 l Jocy Heath 2019-05-07 2019-05-07 Outpatient HUONG [facility]anOKSCHER [id number] 13:30:00 23:59:59 Rory 03 Kendall 2019-05-07 2019-05-07 Outpatient MHIE MHIE [id number] Memoria 13:30:00 13:30:00 03 alex Heath 2019-01-28 2019-01-28 Office ALISA Ferro [id number] [facility] 14:25:28 16:12:55 Visit Declan I AMBULATOR [id number] College Y [id number] [facility] 300 e 2019-01-28 2019-01-28 Office ALISA Ferro [id number] 14:25:28 16:12:55 Visit Declan Rodriguez AMBULATOR [id number] Y [id number] [facility] 2019-01-08 2019-01-09 Outpatient nullFlavo MNA [id number] Memoria 18:30:00 04:59:59 r Neurology 02 alex Jocy Heath 2019-01-08 2019-01-08 Outpatient SHERWIN Noonan GOOD [id number] 13:30:00 23:59:59 Rory 02 Kendall 2019-01-08 2019-01-08 Outpatient MHIE MHIE [id number] Memoria 13:30:00 13:30:00 02 alex Kumar 2018-11-06 2018-11-07 Outpatient nullFlavo MNA [id number] [facility] 18:00:00 04:59:59 r Neurology 01 alex Jocy Heath 2018-11-06 2018-11-06 Outpatient SHERWIN Noonan [id number] 13:00:00 23:59:59 Rory Kendall 2018-11-06 2018-11-06 Outpatient MHIE MHIE [id number] Memoria 13:00:00 13:00:00 01 alex Kumar 2018-10-31 2018-10-31 Elder Assistant 1, Adc Lab [facility] [id number] 11:29:07 11:44:07 Visit [place] [id number] [place] [id number] [place] [id number] [facility] 2018-10-31 2018-10-31 Orders Doctor PATRICIA [id number] 00:00:00 00:00:00 Only Unassigned, FLORIAN [id number] [place] [facility] [id number] [facility] 2018-10-10 2018-10-11 Outpatient nullFlavo MNA [id number] Memoria 20:00:00 04:59:59 r Neurology 00 alex Jocy Heath 2018-10-10 2018-10-10 Outpatient SHERWIN Noonan [id number] 15:00:00 23:59:59 Rory 00 Kendall 2018-10-10 2018-10-10 [id number] 15:00:00 15:00:00 00 l Kumar Results Test Description Test Time Test Comments Results Result Comments Source PSA,TOTAL AND FREE 2019-01-29 11:08:47 Test Item Value Reference Range Interpretation Comme nts PSA (test code = 2857-1) <0.02 See_Comment [A utomated message] The system which generated this result transmitted reference range : <=4.00 NG/ML. The reference range was not used to interpret this result as normal/abnormal . PSA, FREE (test code = <0.02 NG/ML 78402-3) PSA, % FREE (test code = (NOTE) SEE BELOW % [place] [address]-6) THEVAas Joanne ctrochemiluminescence Immunoassay wit h World Health Organization (W HO) calibration. $$$$$ INTERPRETIVE IN FORMATION $$$$$ INTERPRETIVE TA BLE: Probability of prostatic carci noma based on percent of free PSA in men with total PSA OF 4.00-10.00 ng/m L and negative digital rectal examinat ion: Patient Age Free PSA 50-59 years 60- 69 years >=70 years (%) (%) (%) (%) <=1 0 49 58 65 11-18 27 34 41 19-25 18 24 30 >=26 9 12 16 INTERPRETIVE TA BLE: Sensitivity and specificity for prostate carcinoma, men of all age grou ps, no prior stratification by total PSA: Free PSA cutoff Sensitiv ity Specificity (Less than %) (%) (%) 23 86 30 25 93 20 27 96 14 (Ref: Selenao na WJ et al. SHANTE; 277: 0591-7005. Roach YT et al. Urology; 47:518-524. Linh correa RP et al. Urology; 48:45-50.) Unle ss Otherwise Indicated, All Testing Per formed At: [facility], [address] [place], [place] [id number] 4 Autoglazier: Rick wong M.D. CLIA Number [id number] [place]. [id number] [facility]
[2022-03-08 19:11] LABS: Absolute Lymphocytes (CBC) 1.1 K/uL (0.7-4.9); Hematocrit 41.9 % (39.6-49.0); Lymphocytes % 16.1 % (15.3-44.8); MPV 9.1 fL (7.6-11.3); RBC Red Blood Cell Count 4.56 M/uL (4.33-5.43)
[2022-03-08 19:14] LABS: Blood Morphology Comment NOT SEEN (NOT SEEN); Platelet Estimate ADEQ; Protime INR 1.1; White Blood Cell Scan OK (OK)
[2022-03-08 19:34] LABS: Albumin 3.6 g/dL (3.4-5.0); Bilirubin Direct 0.2 mg/dL (0-0.2); Bilirubin Total 0.7 mg/dL (0.2-1.0); Potassium 3.4 mmol/L (3.5-5.1)
[2022-03-08 19:44] LABS: SARS-COV-2 RT PCR POSITIVE (NEGATIVE)
[2022-03-08 19:46] LABS: Troponin High Sensitivity 63.4 pg/mL (<58.9)
--- NOTE | 2022-03-08 20:02 | RAD REPORT ---
EXAM DESCRIPTION: CT - Head C Spine Mpr Wo Con - 03/08/2022 7:48 pm CLINICAL HISTORY: Head and neck injury status post fall. Head and neck pain COMPARISON: 2018 TECHNIQUE: Computed axial tomography of the head and cervical spine was obtained. Sagittal and coronal reconstruction was performed. All CT scans are performed using dose optimization technique as appropriate and may include automated exposure control or mA/KV adjustment according to patient size. FINDINGS: An intracranial bleed is not seen. The ventricles are normal in caliber. An extra-axial fl uid collection is not noted.Fluid within the visualized sinuses and mastoids is not seen A cervical fracture is not visualized. No dislocation is noted. Spondylosis involves the cervical spi ne. Fusion involves C2 and C3 IMPRESSION: No acute intracranial abnormality is seen. A cervical fracture is not visualized. If the patient continues to have symptoms to suggest intracra nial /spinal cord pathology then MRI would be recommended
--- NOTE | 2022-03-08 20:14 | RAD REPORT ---
EXAM DESCRIPTION: Julian Single View03/08/2022 7:41 pm CLINICAL HISTORY: Chest pain COMPARISON: February 2022 FINDINGS: Medial right base is hazy. The remainder of the lungs appear clear of acute infiltrate. The heart is normal size IMPRESSION: Medial right base is hazy which may indicate a mild infiltrate or confluence of vessels , ribs and pericardial fat
--- NOTE | 2022-03-08 20:15 | RAD REPORT ---
EXAM DESCRIPTION: RAD - Knee Right 3 View - 03/08/2022 7:41 pm CLINICAL HISTORY: Right knee pain status post injury FINDINGS: Moderate osteoarthritis knee. Small to moderate joint effusion. Osteoporosis. No fracture or dislocation seen. If the patient continues have symptoms to suggest an occult fracture, ligamentous or meniscal injury then MRI would be recommended
[2022-03-08] MEDS ORDERED: NA CHLORIDE 0.9% 500 ML ONE (21:01)
[2022-03-08] MEDS ORDERED: DIAZEPAM 10 MG/2 ML INJ SYRINGE ONE (21:03)
--- NOTE | 2022-03-08 21:33 | RAD REPORT ---
EXAM DESCRIPTION: CT - Chest For Pe Angio - 03/08/2022 9:21 pm CLINICAL HISTORY: sob COMPARISON: None. TECHNIQUE: Dynamically enhanced axial 3 mm thick images of the chest were obtained during administra tion of <100> mL Isovue 370 IV contrast. Coronal and oblique reconstruction images were generated and reviewed. Exam utilizes a protocol for optimal evaluation of pulmonary arterial tree. Maximum intensity projections 3D imaging was utilized All CT scans are performed using dose optimization technique as appropriate and may include automated exposure control or mA/KV adjustment according to patient size. FINDINGS: A pulmonary embolus is not seen. A thoracic aortic aneurysm is not noted. A pleural effusion is not seen. A pericardial effusion is not seen. Mild reticulonodular opacity right upper lobe IMPRESSION: Negative for a pulmonary embolism. Mild reticulonodular opacity right upper lobe may indicate a mild atypical infection
--- NOTE | 2022-03-08 21:46 | EDPHYS ---
Physician Documentation [facility] Name: Gigi Bar Age: 86 yrs Sex: Male : 1935 Arrival Date: 03/08/2022 Time: 18:23 Bed 16 Private MD: ED Physician Viral Cross HPI: 03/08 18:45 This 86 yrs old Male presents to ER via Wheelchair with complaints of Fall Injury. cp 18:45 Details of fall: The patient fell from an upright position, while standing. cp 18:45 Onset: The symptoms/episode began/occurred today, unwitnessed. cp 18:45 The patient's problem is reported as altered mental status, confused, weakness, in the cp right lower extremity, that is generalized, Son reports they have had to assist patient with walking and concern that he appears to be dragging right leg. 18:45 Onset: The symptoms/episode began/occurred 3 day(s) ago. cp Historical: - Allergies: 18:38 No Known Allergies; kc6 - Home Meds: 18:38 Lasix 40 mg Oral tab 1 tab once daily [Active]; kc6 - PMHx: 18:38 Prostate Cancer; Hypertension; kc6 - PSHx: 18:38 prostate surgery; kc6 - Immunization history:: Client reports receiving the 2nd dose of the Covid vaccine, Pneumococcal vaccine is up to date, Flu vaccine is up to date. - Social history:: Smoking status: Patient denies any tobacco usage or history of. ROS: 18:50 Constitutional: Negative for fever. cp 18:50 Cardiovascular: Negative for chest pain. cp 18:50 Abdomen/GI: Negative for abdominal pain, vomiting, diarrhea. 18:50 Neuro: Positive for altered mental status, weakness. 18:50 Unable to obtain ROS due to altered mental status, baseline dementia. Exam: 18:37 ECG was reviewed by the Attending Physician. cp 18:55 Constitutional: The patient appears in no acute distress, alert, awake, cp non-diaphoretic, non-toxic, well developed, well nourished. 18:55 Head/Face: Normocephalic, atraumatic. cp 18:55 Eyes: Periorbital structures: appear normal, Pupils: equal, round, and reactive to light and accomodation, Conjunctiva: normal, no exudate, no injection, Sclera: no appreciated abnormality, Lids and lashes: appear normal, bilaterally. 18:55 ENT: External ear(s): are unremarkable, Nose: is normal, Mouth: Lips: moist, Oral mucosa: moist, Posterior pharynx: Airway: no evidence of obstruction, patent. 18:55 Neck: C-spine: vertebral tenderness, is not appreciated, crepitus, is not appreciated. 18:55 Chest/axilla: Inspection: normal, Palpation: is normal, no crepitus, no tenderness. 18:55 Cardiovascular: Rate: normal, Rhythm: regular, Edema: is not appreciated, JVD: is not appreciated. 18:55 Respiratory: the patient does not display signs of respiratory distress, Respirations: normal, no use of accessory muscles, no retractions, labored breathing, is not present, Breath sounds: are clear throughout, no decreased breath sounds, no stridor, no wheezing. 18:55 Abdomen/GI: Inspection: abdomen appears normal, Bowel sounds: active, all quadrants, Palpation: abdomen is soft and non-tender, in all quadrants. 18:55 Back: vertebral tenderness, is not appreciated. 18:55 Skin: cellulitis, is not appreciated, no rash present. 18:55 Neuro: Orientation: to person, Not oriented to place, time, situation, Mentation: slow to respond, confused, unable to follow commands, Motor: moves all fours, general weakness with no focal deficits. 20:20 Radiologist reports: no acute findings cp Vital Signs: 18:36 BP 140 / 93; Pulse 90; Resp 18 S; Temp 98.2(O); Pulse Ox 96% on R/A; Weight 99.79 kg kc6 (R); Height 6 ft. 0 in. (182.88 cm) (R); Pain 0/10; 12/07 00:20 BP 135 / 88; Pulse 82; Resp 18; Pulse Ox 95% ; kd3 05:57 BP 141 / 68; Pulse 64; Resp 18; Pulse Ox 92% on R/A; kd3 12 18:36 Body Mass Index 29.84 (99.79 kg, 182.88 cm) 6 MDM: 03/08 18:42 Patient medically screened. cp 19:00 Differential diagnosis: CVA, TIA, metabolic disorder, drug effects, acute [place]. cp 21:40 Data reviewed: vital signs, nurses notes, lab test result(s), EKG, radiologic studies, cp CT scan, plain films. 21:40 Test interpretation: by ED physician or midlevel provider: ECG, plain radiologic cp studies. Physician consultation: Jack WILD was contacted at 21:40, regarding admission, to the telemetry unit. patient's condition. 12 18:42 Order name: Basic Metabolic Panel; Complete Time: 19:50 cp 12/ 19:50 Interpretation: Normal except: NA 132; K 3.4; GLUC 124; GFR 74; CA 8.4. cp 12/ 18:42 Order name: CBC with Diff; Complete Time: 19:50 cp / 19:50 Interpretation: Normal except: MN% 21.9; MNA 1.4. cp 12/ 18:42 Order name: LFT's; Complete Time: 19:50 cp / 20:28 Interpretation: Normal except: AST 74; ALK 121. cp / 18:42 Order name: Magnesium; Complete Time: 19:50 cp / 18:42 Order name: NT PRO-BNP; Complete Time: 19:50 cp / 18:42 Order name: PT-INR; Complete Time: 19:50 cp / 18:42 Order name: Troponin HS; Complete Time: 19:50 cp / 19:51 Interpretation: Abnormal: Troponin HS 63.4. cp / 18:42 Order name: Lactate w/ 2H reflex if indic.; Complete Time: 19:50 cp 03/08 18:42 Order name: COVID-19/FLU A+B; Complete Time: 19:50 cp 12/ 19:14 Order name: CBC Smear Scan; Complete Time: 19:50 EDMS 03/08 19:51 Order name: Urine Microscopic Only cp 03/08 22:35 Order name: Urine Dipstick-Ancillary EDTN 03/09 02:56 Order name: CBC with Automated Diff EDTN 03/09 02:58 Order name: Troponin High Sensitivity EDTN 03/08 18:42 Order name: XRAY Chest (1 view); Complete Time: 20:16 cp 03/08 20:16 Interpretation: Report review. 03/08 18:42 Order name: XRAY Knee RIGHT 3 view; Complete Time: 20:16 cp 03/08 18:42 Order name: CT Head C Spine; Complete Time: 20:16 cp 03/08 20:18 Order name: XRAY Elbow RIGHT 3 view; Complete Time: 22:27 kd3 03/08 20:33 Order name: CT Chest For PE Angio cp 03/08 20:37 Order name: Chest For Pe Angio; Complete Time: 21:34 EDMS 03/09 03:25 Order name: Basic Metabolic Panel EDMS 03/09 03:25 Order name: Creatine Phosphokinase EDMS 03/09 03:25 Order name: Lipid Profile EDMS 03/09 03:25 Order name: T4 Free EDMS 03/09 03:25 Order name: Magnesium EDMS 03/09 03:25 Order name: Thyroid Stimulating Hormone EDMS 03/09 07:33 Order name: Troponin High Sensitivity EDMS 03/08 18:42 Order name: EKG; Complete Time: 18:42 cp 03/08 18:42 Order name: Cardiac monitoring; Complete Time: 18:43 cp 03/08 18:42 Order name: EKG - Nurse/Tech; Complete Time: 18:43 cp 03/08 18:42 Order name: IV Saline Lock; Complete Time: 18:56 cp 03/08 18:42 Order name: Labs collected and sent; Complete Time: 18:56 cp 03/08 18:42 Order name: O2 Per Protocol; Complete Time: 18:43 cp 03/08 18:42 Order name: O2 Sat Monitoring; Complete Time: 18:43 cp 03/08 19:51 Order name: Urine Dipstick-Ancillary (obtain specimen); Complete Time: 22:28 cp EC:37 Rate is 86 beats/min. Rhythm is regular. [place] interval is prolonged at 206 msec. QRS cp interval is normal. QT interval is normal. Interpreted by me. Reviewed by me. Administered Medications: 21:16 Drug: NS 0.9% 500 ml Route: IV; Rate: calculated rate; Site: left antecubital; kd3 03/09 05:58 Follow up: Response: No adverse reaction; IV Status: Completed infusion kd3 03/08 21:16 Drug: Diazepam 2 mg Route: IVP; Site: left antecubital; kd3 21:16 Follow up: Response: No adverse reaction; Anxiety decreased kd3 23:55 Drug: Potassium Effervescent Tablet 25 mEq Route: PO; kd3 12/07 05:58 Follow up: Response: No adverse reaction kd3 Disposition Summary: 03/08/22 21:45 Hospitalization Ordered Hospitalization Status: Inpatient Admission cp Provider: Cirilo Mueller cp Condition: Stable cp Problem: new cp Symptoms: have improved cp Bed/Room Type: Standard cp Location: Telemetry/MedSurg (Inpatient)(03/09/22 15:25) bd Room Assignment: (03/09/22 16:40) ja1 Diagnosis - Weakness cp - Pneumonia due to SARS-associated coronavirus cp Forms: - Medication Reconciliation Form cp - SBAR form cp Signatures: Dispatcher [employer] EDMS Michelle Szymanski Brenda RN RN bb Jack Ross, MICHELLE-C BARROW WORKER HELPER-Carroll1 Viral Carrero PA PA cp Brayden Carter RN RN ja1 Bianca Matt RN RN kd3 Mallika Byrd RN RN kc6 Corrections: (The following items were deleted from the chart) 03/08 21:53 21:45 Telemetry/MedSurg (Inpatient) cp bb 21:53 21:45 cp bb 03/09 15:25 12 21:53 [facility] ER HOLD bb bd 03/09 15:25 12 21:53 ERHOLD- bb bd 03/09 16:40 15:25 401 bd ja1
--- NOTE | 2022-03-08 21:46 | ER ---
Nurse's Notes [facility] Name: Gigi Bar Age: 86 yrs Sex: Male : 1935 Arrival Date: 03/08/2022 Time: 18:23 Bed 16 Private MD: Diagnosis: Weakness;Pneumonia due to SARS-associated coronavirus Presentation: 03/08 18:36 Chief complaint: Patient's son or daughter states: client had an unwitnessed fall at [facility] home. no knowledge of LOC, no blood thinners. 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 Coronavirus screen: Vaccine status: Patient reports receiving the 2nd dose of the covid vaccine. At this time, the client does not indicate any symptoms associated with coronavirus-19. Ebola Screen: No symptoms or risks identified at this time. Initial Sepsis Screen: Does the patient meet any 2 criteria? Altered Mental Status. No. Patient's initial sepsis screen is negative. Does the patient have a suspected source of infection? No. Patient's initial sepsis screen is negative. Risk Assessment: Do you want to hurt yourself or someone else? Patient reports no desire to harm self or others. Onset of symptoms was March 08, 2022. 18:36 Method Of Arrival: Wheelchair kc 18:36 Acuity: NATALIE 2 kc6 Triage Assessment: 18:41 General: Appears in no apparent distress. comfortable, Behavior is calm, cooperative, kc6 appropriate for age. Pain: Denies pain. EENT: No signs and/or symptoms were reported regarding the EENT system. Neuro: Collazo Agitation-Sedation Scale (RASS): 0 - Alert and Calm Level of Consciousness is awake, alert, obeys commands, confused, Oriented to person, place, Latin American Studies Professor are equal bilaterally Weakness in left in right leg(s) Gait is unsteady, Speech is normal, Facial droop on left, Facial symmetry: tongue is midline, Pupils are PERRLA, Intact. Cardiovascular: Heart tones S1 S2 present Capillary refill < 3 seconds. Respiratory: Airway is patent Trachea midline Respiratory effort is even, unlabored, Respiratory pattern is regular, symmetrical, Breath sounds are clear bilaterally. GI: No signs and/or symptoms were reported involving the gastrointestinal system. : No signs and/or symptoms were reported regarding the genitourinary system. Derm: Skin has skin tears on right and left knee Skin is dry, Skin is pink, Skin temperature is warm. Musculoskeletal: No signs and/or symptoms reported regarding the musculoskeletal system. Circulation, motion, and sensation intact. Capillary refill < 3 seconds, Range of motion: intact in all extremities. Historical: - Allergies: 18:38 No Known Allergies; [facility] - Home Meds: 18:38 Lasix 40 mg Oral tab 1 tab once daily [Active]; kc6 - PMHx: 18:38 Prostate Cancer; Hypertension; kc6 - PSHx: 18:38 prostate surgery; kc6 - Immunization history:: Client reports receiving the 2nd dose of the Covid vaccine, Pneumococcal vaccine is up to date, Flu vaccine is up to date. - Social history:: Smoking status: Patient denies any tobacco usage or history of. Screenin:44 Abuse screen: Denies threats or abuse. Denies injuries from another. Nutritional kc screening: No deficits noted. Tuberculosis screening: No symptoms or risk factors identified. Fall Risk Fall in past 12 months (25 points). Secondary diagnosis (15 points) Alzheimer's, IV access (20 points). Ambulatory Aid- None/Bed Rest/Nurse Assist (0 pts). Gait- Weak (10 pts.). Mental Status- Overestimates/Forgets Limitations (15 pts.). Total Jay Fall Scale indicates High Risk Score (45 or more points). Fall prevention measures have been instituted. Side Rails Up X 2 Placed Close to Nursing Station Frequent Obs/Assessments Occuring Family Present and informed to notify staff if the need to leave the bedside As available patient and family educated on Fall Prevention Program and Strategies. Assessment: 18:44 Reassessment: please see triage assessment. [facility] Vital Signs: 18:36 BP 140 / 93; Pulse 90; Resp 18 S; Temp 98.2(O); Pulse Ox 96% on R/A; Weight 99.79 kg kc (R); Height 6 ft. 0 in. (182.88 cm) (R); Pain 0/10; 12/07 00:20 BP 135 / 88; Pulse 82; Resp 18; Pulse Ox 95% ; kd3 05:57 BP 141 / 68; Pulse 64; Resp 18; Pulse Ox 92% on R/A; kd3 1206 18:36 Body Mass Index 29.84 (99.79 kg, 182.88 cm) kc6 ED Course: 03/08 18:23 Patient arrived in ED. mr 18:29 Mallika Byrd, ELIAS is Primary Nurse. kc6 18:38 Triage completed. kc6 18:39 Viral Carrero PA is PHCP. cp 18:39 Chris Woodard MD is Attending Physician. cp 18:50 COVID-19/FLU A+B Sent. kc6 18:56 Inserted saline lock: 20 gauge in left forearm, using aseptic technique. Blood jd3 collected. 18:56 Arm band placed on. EKG completed in triage. Results shown to MD. jd3 19:09 Viral Cross MD is Attending Physician. cp 19:43 XRAY Chest (1 view) In Process Unspecified. EDMS 19:43 XRAY Knee RIGHT 3 view In Process Unspecified. EDMS 19:50 CT Head C Spine In Process Unspecified. EDMS 20:57 XRAY Elbow RIGHT 3 view In Process Unspecified. EDMS 20:58 Chest For Pe Angio In Process Unspecified. EDMS 21:45 Cirilo Mueller MD is Hospitalizing Provider. cp 22:28 Urine Microscopic Only Sent. kd3 12 00:21 No provider procedures requiring assistance completed. kd3 00:21 Patient has correct armband on for positive identification. kd3 02:59 Notified Nurse Practitioner and/or Physician Technology Professional of a critical lab result(s), bb troponin of 76.5 Jack Ross NP notified. 03:27 Notified Nurse Practitioner and/or Physician Technology Professional of a critical lab result(s), CPK bb 1620 Jack Ross NP notified. 05:56 Patient admitted, IV remains in place. kd3 Administered Medications: 03/08 21:16 Drug: NS 0.9% 500 ml Route: IV; Rate: calculated rate; Site: left antecubital; kd3 03/09 05:58 Follow up: Response: No adverse reaction; IV Status: Completed infusion kd3 03/08 21:16 Drug: Diazepam 2 mg Route: IVP; Site: left antecubital; kd3 21:16 Follow up: Response: No adverse reaction; Anxiety decreased kd3 23:55 Drug: Potassium Effervescent Tablet 25 mEq Route: PO; kd3 03/09 05:58 Follow up: Response: No adverse reaction kd3 Medication: 00:21 VIS not applicable for this client. kd3 Outcome: 03/08 21:45 Decision to Hospitalize by Provider. tommy 03/09 05:56 Admitted to ER Hold. Please see [facility] for further documentation. kd3 Condition: stable Discharge instructions given to patient, family, Instructed on follow up and referral plans. the need for admit, Demonstrated understanding of instructions, follow-up care. 17:45 Patient left the ED. kr3 Signatures: Dispatcher [employer] DALILAMI EnzoTressa GarciaDimple munoz, RN RN Viral Bee PA PA cp Davies, Jonathon RN RN jd3 Bianca Matt RN RN kd3 Elvi Cruz RN RN kr3 Mallika Byrd RN RN kc6
[2022-03-08] MEDS ORDERED: NA CHLORIDE 0.9% 1,000 ML ONE (21:59)
--- NOTE | 2022-03-08 22:19 | RAD REPORT ---
EXAM DESCRIPTION: RAD - Elbow Right 3 View - 03/08/2022 8:56 pm CLINICAL HISTORY: Elbow pain FINDINGS: Bony/calcific densities adjacent to the lateral humeral condyle are chronic. Bony/calcific density along the medial humeral condyle probably is chronic. An acute fracture is cons idered less likely but clinical correlation is needed to see patient has point tenderness to suggest this. No joint effusion is suspected. No dislocation
[2022-03-08 22:34] LABS: Urine Blood Trace-lysed (Negative); Urine Glucose Negative (Negative); Urine Protein Negative (Negative); Urine Specific Gravity 1.015 (1.005-1.030)
[2022-03-08 22:50] LABS: Urine RBC <5 /HPF (None Seen)
--- NOTE | 2022-03-08 23:02 | P.HP ---
Certification for Inpatient Patient admitted to: Inpatient With expected LOS: >2 Midnights Patient will require the following post-hospital care: None Practitioner: I am a practitioner with admitting privileges, knowledge of patient current condition, hospital course, and medical plan of care. Services: Services provided to patient in accordance with Admission requirements found in Title 42 Section 412.3 of the Code of Federal Regulations Patient History Date of Service: 03/08/22 History of Present Illness: 86-year-old male with history of dementia, hypertension, hyperlipidemia presents to the emergency department for fall. Patient had unwitnessed fall was found on the ground by his after short period of time. Family also reports upper respiratory symptoms for the last couple days. Patient was evaluated in the emergency department his labs were significant for mild hyponatremia sodium 132 potassium 3.4 high-sensitivity troponin 63.4 positive for COVID CTA chest performed demonstrated mild reticulonodular opacity right upper lobe indicate mild atypical infection. CT head/C-spine negative for acute findings. ED provider wishes to admit for further evaluation and management of COVID- pneumonia, elevated troponin, fall. Allergies No Known Allergies Allergy (Verified 07/29/15 07:10) Home Medications: Atorvastatin Calcium [Lipitor*] 20 mg PO DAILY 10/22/12 Sildenafil Citrate [Viagra] 100 mg PO PRN PRN 10/22/12 Multivitamin [Multivitamins] 1 each PO DAILY 07/29/15 - Past Medical/Surgical History -: Dementia -: Hypertension -: Hyperlipidemia Past Surgical History: Unable to obtain Psychosocial/ Personal History: Patient lives at home with his - Family History Family History: Reviewed- Non-Contributory - Social History Smoking Status: Never smoker Alcohol use: No CD- Drugs: No Caffeine use: No Place of Residence: Home Review of Systems is unable to be obtained Physical Examination - Physical Exam General: Alert, In no apparent distress, Oriented x1 HEENT: Atraumatic, PERRLA, Mucous membr. moist/pink, EOMI, Sclerae nonicteric Neck: Supple, 2+ carotid pulse no bruit, No LAD, Without JVD or thyroid abnormality Respiratory: Diminished Cardiovascular: Regular rate/rhythm, Normal S1 S2 Gastrointestinal: Normal bowel sounds, No tenderness Musculoskeletal: No tenderness Integumentary: No rashes Neurological: Normal speech, Normal strength at 5/5 x4 extr, Normal tone, Normal affect - Studies Laboratory Data (last 24 hrs) 03/08/22 18:51: PT 12.1, INR 1.10 03/08/22 18:51: WBC 6.50, Hgb 14.3, Hct 41.9, Plt Count 180 03/08/22 18:51: Sodium 132 L, Potassium 3.4 L, BUN 14, Creatinine 0.99, Glucose 124 H, Magnesium 2.0, Total Bilirubin 0.7, AST 74 H, ALT 43, Alkaline Phosphatase 121 H Assessment and Plan - Plan Assessment: COVID-19 pneumonia Dehydration Hypokalemia Elevated troponin Fall Dementia Hypertension Hyperlipidemia Plan: COVID-19 pneumonia: Currently not requiring supplemental oxygen, pulmonology consulted. CT negative for pulmonary embolism. Dehydration: Continue gentle IV fluids overnight. Hypokalemia: Replacement protocol in place Elevated troponin: Patient denies chest pain, will trend troponins, monitor on telemetry. Cardiology consult in place. Borderline elevated. Fall: Unwitnessed fall, was not out of line of sight for very long. Will obtain CPK for the morning. PT consult. Dementia: Continue home meds. at bedside. Hypertension: Continue home meds Hyperlipidemia:Continue home meds DVT PPX: Lovenox Code status: Full Discharge Plan: Home Plan to discharge in: 48 Hours - Advance Directives Does patient have a Living Will: Yes Does patient have a Durable POA for Healthcare: Yes - Code Status/Comfort Care Code Status Assessed: Yes (Full code) Critical Care: No Time Spent Managing Pts Care (In Minutes): 70
[2022-03-08] MEDS ORDERED: POTASSIUM 25 MEQ EFFERV TAB ONE (23:48)
[2022-03-09] MEDS ORDERED: ALBUTEROL 2.5 MG/3 ML NEB SOL NEB PRN ×2 (01:17→14:00)
[2022-03-09] MEDS ORDERED: ACETAMINOPHEN 500 MG TAB PO PRN (01:17)
[2022-03-09] MEDS ORDERED: ONDANSETRON 4 MG/2 ML VIAL IV PRN (01:17)
[2022-03-09] MEDS ORDERED: NA CHLORIDE 0.9% 1,000 ML IV SCH (01:17)
[2022-03-09] MEDS ORDERED: BENZONATATE 100 MG CAP PO PRN (01:22)
[2022-03-09] MEDS ORDERED: BENZONATATE 100 MG CAP PO ONE (01:40)
[2022-03-09 02:42] LABS: Absolute Lymphocytes (CBC) 2.2 K/uL (0.7-4.9); Hematocrit 41.8 % (39.6-49.0); Lymphocytes % 30.7 % (15.3-44.8); MCV 91.9 fL (80-100); MPV 9.7 fL (7.6-11.3); RBC Red Blood Cell Count 4.56 M/uL (4.33-5.43)
[2022-03-09 03:23] LABS: Magnesium 2.2 mg/dL (1.8-2.4); Potassium 3.5 mmol/L (3.5-5.1); Thyroid Stimulating Hormone 0.956 uIU/mL (0.360-3.740)
[2022-03-09 04:24] VITALS: BMI 4276.6
[2022-03-09] MEDS ORDERED: INFLUENZA VACCINE (for 6+ mo) 0.5 ML DOSE IMVAC ONE (08:00)
[2022-03-09] MEDS ORDERED: ASPIRIN 81 MG CHEWABLE TABLET ONE (08:39)
[2022-03-09] MEDS ORDERED: AMLODIPINE 10 MG TAB ONE (08:40)
[2022-03-09] MEDS ORDERED: ENOXAPARIN 40 MG/0.4 ML SQ ONE (08:40)
[2022-03-09] MEDS ORDERED: AMLODIPINE 10 MG TAB PO SCH (09:00)
[2022-03-09] MEDS ORDERED: ENOXAPARIN 40 MG/0.4 ML SQ SCH (09:00)
[2022-03-09] MEDS ORDERED: MEMANTINE HCL 10 MG TABLET PO SCH (09:00)
[2022-03-09] MEDS ORDERED: ASPIRIN EC 81 MG TAB PO SCH (09:00)
[2022-03-09 09:41] VITALS: O2SAT 96
[2022-03-09 16:52] VITALS: BP 118/71; TEMP 97.9
[2022-03-09] MEDS ORDERED: ATORVASTATIN 40 MG TAB PO SCH (21:00)
--- NOTE | 2022-03-10 07:18 | ECHO ---
HEIGHT: 6 ft 0 in WEIGHT: 219 lb 15.989 oz DATE OF STUDY: 03/09/[address]: Jack Ross NP 2-DIMENSIONAL: YES M.MODE: YES DOPPLER: YES COLOR FLOW: YES TDS: PORTABLE: YES DEFINITY: BUBBLE STUDY: DIAGNOSIS: ELEVATED TROPONIN CARDIAC HISTORY: CATHERIZATION: NO SURGERY: NO PROSTHETIC VALVE: NO PACEMAKER: NO MEASUREMENTS (cm) DIASTOLIC (NORMALS) SYSTOLIC (NORMALS) IVSd 1.1 (0.6-1.2) LA Diam 2.2 (1.9-4.0) LVEF 68% LVIDd 3.9 (3.5-5.7) LVIDs 2.4 (2.0-3.5) %FS 37% LVPWd 1.1 (0.6-1.2) Ao Diam 2.6 (2.0-3.7) 2 DIMENSIONAL ASSESSMENT: RIGHT ATRIUM: NORMAL LEFT ATRIUM: NORMAL RIGHT VENTRICLE: NORMAL LEFT VENTRICLE: NORMAL TRICUSPID VALVE: NORMAL MITRAL VALVE: NORMAL PULMONIC VALVE: NORMAL AORTIC VALVE: NORMAL PERICARDIAL EFFUSION: NONE AORTIC ROOT: NORMAL LEFT VENTRICULAR WALL MOTION: NORMAL DOPPLER/COLOR FLOW: MILD TRICUSPID REGURGITATION COMMENTS: 1. NORMAL 2-DIMENSIONAL ECHOCARDIOGRAM 2. MILD TRICUSPID REGURGITATION 3. NORMAL RIGHT VENTRICULAR SYSTOLIC PRESSURE 4. NO WALL MOTION ABNORMALITY TECHNOLOGIST: DENA WILLIAMSON
== END 2022-03-09 16:56 | disposition home or self-care (01) ==
LOC: ER 18:19 → ERHOLD 22:39 → INTOOBSV 22:39
PROVIDERS: ADMIT Hospitalist; ATTEND Hospitalist
DX: U07.1 COVID-19 (principal); J12.82 Pneumonia due to coronavirus disease 2019; F03.90 Unspecified dementia, unspecified severity, without behavioral disturbance, psychotic disturbance, mood disturbance, and anxiety; E86.0 Dehydration; E87.6 Hypokalemia; R77.8 Other specified abnormalities of plasma proteins; I10 Essential (primary) hypertension; E78.5 Hyperlipidemia, unspecified; P74.22 Hyponatremia of newborn; W18.30XA Fall on same level, unspecified, initial encounter; Y93.9 Activity, unspecified; Y92.019 Unspecified place in single-family (private) house as the place of occurrence of the external cause
CPT/HCPCS: 93005; 93306; 85025 ×2; 80048 ×2; 36415; 83735 ×2; 82550; 85610; 80061; 80076; 83605; 84443; 84484 ×3; 84439; 83880; 0240U; 70450; 72125; 71275; 71045; 73080; 73562; 97116; 97161; 97530; Q9967; J1650; J3360; J7040; J7030; 81003; 81015; G0378

== ENCOUNTER 2022-03-14 09:32 | Inpatient (IN) | payer OTHER ==
--- OUTSIDE RECORDS SUMMARY | 2022-03-14 09:36 | XMS REPORT | Continuity of Care Document ---
:1935 Author Organization [facility] t Address [address] [place] [address] Care Team Providers Name Role Phone Cezar Arrington MD Primary Care Physician Rory Noonan Attending Clinician Pillo PAEZ, Declan Rodriguez Attending Clinician 1, [facility] Attending Clinician Unavailable Doctor Unassigned, [place] Attending Clinician Unavailable Payers Payer Name Policy Type Policy Number Effective Date Expiration Date S ource Problems Condition Condition Condition Status Onset Resolution Last Treating Co mments Source Name Details Category Date Date Treatment Clinician Date Erectile Erectile Disease Active [facility] dysfunctio dysfunctio 12-02 Co llege n n 00:00: of following following 00 Medi sarah radical radical e prostatect prostatect enmanuel enmanuel Lower Lower Disease Active [facility] urinary urinary 12-02 College tract tract 00:00: of symptoms symptoms 00 Medici n (LUTS) (LUTS) e 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 08-15 Co llege sm sm 00:00: of 00 Medicin e Special Special Disease Active [facility] screening screening 08-15 [facility] for for 00:00: of malignant malignant 00 Medi sarah neoplasm neoplasm e of of prostate prostate Dementia Dementia Problem Active 2022-02-19 Memoria (disorder) (disorder) 13:03:52 l Active [place] Problem 02/19/2022 [facility] Hyperlipid Hyperlipi Problem [...] Stop Date Quantity Comments Source Social History 2022-02-16 2022-02-16 [facility] 19:58:57 19:58:57 Social History 2018-10-10 2018-10-10 [facility] 20:24:27 20:24:27 Alcohol intake 2015-11-20 2015-11-20 [facility] drink[facility] Tobacco use and 2015-11-13 2015-11-[address] [facility] Smoking Status Start Date Stop Date Source Tobacco smoking status 2022-02-16 19:25:06 2022-02-16 19:25:06 Deysi Heath Never smoker [facility] o Medicine Medications Ordered Filled Start Stop Current Ordering Indication Dosage Frequency Signature Comments Components Source Medication Medication Date Date Medication? Clinician (SIG) Name Name rivastigmin Yes = 1 cap, Me moria e 6 mg oral 9-07 PO, BID, # l capsule 16:42: 180 Kumar unknown unit, 1 Refill(s), Pharmacy: [facility], 177.8, cm, 10/15/21 13:30:00 CDT, Height, 81.364, kg, 10/15/21 13:30:00 CDT, Weight rivastigmin 2021-0 Yes = 1 cap, Me moria e 6 mg oral 9-07 PO, BID, # l capsule 16:42: 180 [place] 00 unknown unit, 1 Refill(s), Pharmacy: [facility], 177.8, cm, 10/15/21 13:30:00 CDT, Height, 81.364, kg, 10/15/21 13:30:00 CDT, Weight memantine 2021-0 Yes 10 mg = 1 Mem oria 10 mg oral 7-15 tab, PO, l tablet 18:57: BID, # 180 Mildred nn 00 tab, 1 Refill(s), Pharmacy: [facility], 177.8, cm, 10/15/21 13:30:00 CDT, Height, 81.364, kg, 10/15/21 13:30:00 CDT, Weight memantine 0 Yes 10 mg = 1 Mem oria 10 mg oral 7-15 tab, PO, l tablet 18:57: BID, # 180 Mildred nn 00 tab, 1 Refill(s), Pharmacy: [facility], 177.8, cm, 10/15/21 13:30:00 CDT, Height, 81.364, kg, 10/15/21 13:30:00 CDT, Weight solifenacin 2021-0 Yes TAKE 1 Deo lukas 10 mg oral 7-15 TABLET BY l tablet 18:40: MOUTH ONCE Mildred nn 00 DAILY solifenacin 2021-0 Yes TAKE 1 Deo lukas 10 mg oral 7-15 TABLET BY l tablet 18:40: MOUTH ONCE Mildred nn 00 DAILY memantine 5 2021-0 Yes = 1 tab, Me moria mg oral 2-17 PO, BID, # l tablet 19:41: 180 tab, 1 Mildred nn 00 Refill(s), Pharmacy: [facility], 177.8, cm, 05/20/21 13:24:00 SPARMAKER, Height, 86.364, kg, 05/20/21 13:24:00 SPARMAKER, Weight rivastigmin 2021-0 Yes = 1 cap, Me moria e 6 mg oral 2-17 PO, BID, # l capsule 19:41: 180 cap, 1 Herm reginaldo 00 Refill(s), Pharmacy: [facility], 177.8, cm, 05/20/21 13:24:00 SPARMAKER, Height, 86.364, kg, 05/20/21 13:24:00 SPARMAKER, Weight memantine 5 2021-0 Yes = 1 tab, Me moria mg oral 2-17 PO, BID, # l tablet 19:41: 180 tab, 1 Mildred nn 00 Refill(s), Pharmacy: [facility], 177.8, cm, 05/20/21 13:24:00 SPARMAKER, Height, 86.364, kg, 05/20/21 13:24:00 SPARMAKER, Weight rivastigmin 2021-0 Yes = 1 cap, Me moria e 6 mg oral 2-17 PO, BID, # l capsule 19:41: 180 cap, 1 Herm reginaldo 00 Refill(s), Pharmacy: [facility], 177.8, cm, 05/20/21 13:24:00 SPARMAKER, Height, 86.364, kg, 05/20/21 13:24:00 SPARMAKER, Weight rivastigmin 2020-0 Yes 6 mg = 1 Me moria e 6 mg oral 1-13 cap, PO, l capsule 14:11: BID, # 60 Mildred nn 00 cap, 4 Refill(s), Pharmacy: [facility], 180.34, cm, 11/08/19 13:22:00 CDT, Height, 85.909, kg, 11/08/19 13:22:00 CDT, Weight rivastigmin 2020-0 Yes 6 mg = 1 Me moria e 6 mg oral 1-13 cap, PO, l capsule 14:11: BID, # 60 Mildred nn 00 cap, 4 Refill(s), Pharmacy: [facility], 180.34, cm, 11/08/19 13:22:00 CDT, Height, 85.909, kg, 11/08/19 13:22:00 CDT, Weight rivastigmin 2020-0 Yes = 1 cap, Me moria e 4.5 mg 8-07 PO, BID, # l oral 18:34: 60 ea, 3 Kumar capsule 00 Refill(s), Pharmacy: [facility], 180.34, cm, 11/08/19 13:22:00 CDT, Height, 85.909, kg, 11/08/19 13:22:00 CDT, Weight rivastigmin 2020-0 Yes = 1 cap, Me moria e 4.5 mg 8-07 PO, BID, # l oral 18:34: 60 ea, 3 Kumar capsule 00 Refill(s), Pharmacy: [facility], 180.34, cm, 11/08/19 13:22:00 CDT, Height, 85.909, kg, 11/08/19 13:22:00 CDT, Weight memantine 5 2020-0 Yes 5 mg = 1 Me moria mg oral 8-07 tab, PO, l tablet 18:33: BID, # 60 Nick n 00 tab, 4 Refill(s), Pharmacy: [facility], 180.34, cm, 11/08/19 13:22:00 CDT, Height, 85.909, kg, 11/08/19 13:22:00 CDT, Weight memantine 5 2020-0 Yes 5 mg = 1 Me moria mg oral 8-07 tab, PO, l tablet 18:33: BID, # 60 Nick n 00 tab, 4 Refill(s), Pharmacy: [facility], 180.34, cm, 11/08/19 13:22:00 CDT, Height, 85.909, kg, 11/08/19 13:22:00 CDT, Weight Memantine 2020-0 Yes 10 mg = 1 Mem oria hydrochlori 2-04 tab, PO, l de 10 MG 20:14: BID, # 60 Herm reginaldo Oral Tablet 00 tab, 3 [Namenda] Refill(s), Pharmacy: [place] [id number] Memantine 2020-0 Yes 10 mg = 1 Mem oria hydrochlori 2-04 tab, PO, l de 10 MG 20:14: BID, # 60 Herm reginaldo Oral Tablet 00 tab, 3 [Namenda] Refill(s), Pharmacy: [facility] atorvastati 2019- Yes 20mg Take 20 mg [facility] n (LIPITOR) 0-28 by mouth. Col lege 20 MG 20:01: of tablet 03 Medicin e Multiple 2018-04 Yes 1{tbl} Take 1 Bay[facility] Vitamin 0-28 tablet by [place] (MULTI-YAMILET 20:01: mouth. of MINS) TABS 03 Medicin e solifenacin 2018-04 Yes [id number] 10mg Take 1 Tab [facility] (VESICARE) 0-28 by mouth Colle ge 10 MG 00:00: daily. of tablet 00 Medicin e Memantine 2018-04 Yes 5 mg = 1 Deo lukas hydrochlori 0-08 tab, PO, l de 5 MG 19:11: BID, # 60 Mildred nn Oral Tablet 00 tab, 3 [Namenda] Refill(s), Pharmacy: [facility] Memantine 2018-04 Yes 5 mg = 1 Deo lukas hydrochlori 0-08 tab, PO, l de 5 MG 19:11: BID, # 60 Mildred nn Oral Tablet 00 tab, 3 [Namenda] Refill(s), Pharmacy: [facility] rivastigmin Yes 4.5 mg = 1 Memoria e 4.5 mg 8-06 cap, PO, l oral 18:49: BID, # 60 [place] capsule 00 cap, 3 Refill(s), Pharmacy: [facility] rivastigmin Yes 4.5 mg = 1 Memoria e 4.5 mg 8-06 cap, PO, l oral 18:49: BID, # 60 [place] capsule 00 cap, 3 Refill(s), Pharmacy: [facility] Aspirin 81 Yes 81 mg = 1 Me moria MG Enteric 7-10 tab, PO, l Coated 21:22: Daily, # Kumar Tablet 00 90 tab, 3 Refill(s) aspirin 81 2019- Yes 81 mg = 1 Me moria mg tablet, 7-10 tab, PO, l enteric 21:22: Daily, # Nick n coated 00 90 tab, 3 Refill(s) Aspirin 81 2019-0 Yes 81 mg = 1 Me moria MG Enteric 7-10 tab, PO, l Coated 21:22: Daily, # [place] Tablet 00 90 tab, 3 Refill(s) aspirin 81 2019- Yes 81 mg = 1 Me moria mg tablet, 7-10 tab, PO, l enteric 21:22: Daily, # Nick n coated 00 90 tab, 3 Refill(s) rivastigmin 2019-0 Yes 3 mg = 1 Me moria e 3 mg oral 7-10 cap, PO, l capsule 21:12: BID, # 60 Mildred nn 00 cap, 3 Refill(s), Pharmacy: [facility] rivastigmin 2019-0 Yes 3 mg = 1 Me moria e 3 mg oral 7-10 cap, PO, l capsule 21:12: BID, # 60 Mildred nn 00 cap, 3 Refill(s), Pharmacy: [facility] rivastigmin 2018-0 No 5 mg, PO, M emoria e 7-10 Daily, 0 l 20:09: Refill(s) metoprolol 2018-0 Yes 50 mg, PO, M emoria extended 7-10 Daily, 0 l release 20:09: Refill(s) Lisinopril 2018-0 Yes 10 mg, PO, M emoria 7-10 Daily, 0 l 20:09: Refill(s) Norvasc 2018-0 Yes 5 mg, PO, Memor ia 7-10 Daily, 0 l 20:09: Refill(s) Furosemide 2018-0 Yes 40 mg = 1 Me moria 40 MG Oral 7-10 tab, PO, l Tablet 20:09: Daily, 0 [Lasix] Refill(s) atorvastati 2018-0 Yes 40 mg, PO, Memoria n 7-10 Daily, 0 l 20:09: Refill(s) atorvastati 2019-0 Yes 40 mg, PO, Memoria n 7-10 Daily, 0 l 20:09: Refill(s) Lasix 40 mg 2019-0 Yes 40 mg = 1 M emoria oral tablet 7-10 tab, PO, l 20:09: Daily, 0 Refill(s) Norvasc 2018-0 Yes 5 mg, PO, Memor ia 7-10 BID, 0 l 20:09: Refill(s) lisinopril 2018-0 Yes 10 mg, PO, M emoria 7-10 Daily, 0 l 20:09: Refill(s) rivastigmin 2019-0 No 5 mg, PO, M emoria e 7-10 Daily, 0 l 20:09: Refill(s) metoprolol 2018-0 Yes 50 mg, PO, M emoria extended 7-10 Daily, 0 l release 20:09: Refill(s) Lisinopril 0 Yes 10 mg, PO, M emoria 7-10 Daily, 0 l 20:09: Refill(s) Norvasc 0 Yes 5 mg, PO, Memor ia 7-10 Daily, 0 l 20:09: Refill(s) Furosemide Yes 40 mg = 1 Me moria 40 MG Oral 7-10 tab, PO, l Tablet 20:09: Daily, 0 [Lasix] Refill(s) atorvastati Yes 40 mg, PO, Memoria n 7-10 Daily, 0 l 20:09: Refill(s) atorvastati Yes 40 mg, PO, Memoria n 7-10 Daily, 0 l 20:09: Refill(s) Lasix 40 mg Yes 40 mg = 1 M emoria oral tablet 7-10 tab, PO, l 20:09: Daily, 0 Refill(s) Norvasc Yes 5 mg, PO, Memor ia 7-10 BID, 0 l 20:09: Refill(s) lisinopril Yes 10 mg, PO, M emoria 7-10 Daily, 0 l 20:09: Refill(s) Cabergoline 2017-04 Yes .5mg Take 0.5 Ba ylor 0.5 MG TABS 2-10 mg by College 00:00: mouth 2 of 00 times Medicin weekly. e solifenacin 2017-04 2019- No [id number] 10mg Take 1 Tab [facility] (VESICARE) 2-10 10-28 by mouth [facility] 10 MG 00:00: 00:00 daily. of tablet 00 :00 Medicin e VIAGRA 100 2016- Yes [id number] TAKE ONE [facility] MG tablet 04-09 TABLET BY [facility] ge 00:00: MOUTH of 00 DIRECTED Medicin e tadalafil Yes 5mg Take 1 Tab [facility] (CIALIS) 5 8-16 by mouth Colle ge MG tablet 00:00: as needed of 00 for Medicin Erectile e Dysfunctio n. atorvastati Yes 20mg QD Take [address] [facility] (LIPITOR) 8-18 by mouth Luke s 20 MG 16:17: daily. Medical tablet 26 Cord multivitami Yes 1{tbl} QD Take [address] [facility] per 8-18 tablet by [facility] tablet 16:17: mouth Medical 26 daily. Cord multivitami Yes 1{tbl} QD Take [address] [facility] per 8-18 tablet by [facility] tablet 16:17: mouth Medical 26 daily. Cord atorvastati Yes 20mg QD Take [address] [facility] (LIPITOR) 8-18 by mouth Luke s 20 MG 16:17: daily. Medical tablet 26 Cord multivitami Yes 1{tbl} QD Take [address] [facility] per 8-18 tablet by [facility] tablet 16:17: mouth Medical 26 daily. Cord atorvastati Yes 20mg QD Take [address] [facility] (LIPITOR) 8-18 by mouth Luke s 20 MG 16:17: daily. Medical tablet 26 Cord multivitami Yes 1{tbl} QD Take [address] [facility] per 8-18 tablet by [facility] tablet 16:17: mouth Medical 26 daily. Cord atorvastati Yes 20mg QD Take [address] [facility] (LIPITOR) 8-18 by mouth Luke s 20 MG 16:17: daily. Medical tablet 26 Cord celecoxib Yes 200mg Take 1 Cap [facility] (CELEBREX) 8-24 by mouth Colle ge 200 MG 00:00: daily. of capsule 00 Medicin e Avanafil Yes 200mg Take 200 [facility] (STENDRA) 5-14 mg by [place] 200 MG TABS 00:00: mouth as of 00 needed. Medicin e Immunizations Ordered Immunization Filled Immunization Date Status Commen ts Source Name Name Influenza (whole) 2010-03-03 Completed [facility] 00:00:00 of Medicine Vital Signs Vital Name Observation Time Observation Value Comments Source Systolic blood 2019-01-28 20:00:00 121 mm[Hg] [facility] pressure Medicine Diastolic blood 2019-01-28 20:00:00 69 mm[Hg] [facility] pressure Medicine Heart rate 2019-01-28 20:00:00 83 /min [facility] Body height 2019-01-28 20:00:00 182.9 cm [facility] Body weight 2019-01-28 20:00:00 83.915 kg [facility] BMI 2019-01-28 20:00:00 25.09 kg/m2 [facility] Systolic blood 2019-01-28 20:00:00 121 mm[Hg] [facility] of pressure Medicine Diastolic blood 2019-01-28 20:00:00 69 mm[Hg] [facility] Medicine Heart rate 2019-01-28 20:00:00 83 /min [facility] Body height 2019-01-28 20:00:00 182.9 cm [facility] Body weight 2019-01-28 20:00:00 83.915 kg [facility] BMI 2019-01-28 20:00:00 25.09 kg/m2 [facility] Systolic (mm Hg) 2022-02-16 19:24:00 Deo rial [place] Diastolic (mm Hg) 2022-02-16 19:24:00 Mem orial [place] Heart Rate 2022-02-16 19:24:00 [facility] Height 2022-02-16 19:24:00 5 [ft_i] [facility] Kumar Weight 2022-02-16 19:24:00 [facility] Kumar BMI Calculated 2022-02-16 19:24:00 Memori al Kumar Heart Rate 2021-10-15 18:22:00 [facility] [place] Respitory Rate 2021-10-15 18:22:00 Memori al Kumar Height 2021-10-15 18:22:00 177.8 cm [facility] [place] Weight 2021-10-15 18:22:00 [facility] Kumar BMI Calculated 2021-10-15 18:22:00 Memori al [place] Systolic (mm Hg) 2021-10-15 18:22:00 Deo rial [place] Diastolic (mm Hg) 2021-10-15 18:22:00 Mem orial [place] Systolic (mm Hg) 2021-05-20 19:13:00 Deo rial [place] Diastolic (mm Hg) 2021-05-20 19:13:00 Mem orial Kumar Heart Rate 2021-05-20 19:13:00 [facility] Kumar Respitory Rate 2021-05-20 19:13:00 Memori al Kumar Height 2021-05-20 19:13:00 177.8 cm [facility] Kumar Weight 2021-05-20 19:13:00 [facility] Kumar BMI Calculated 2021-05-20 19:13:00 Memori al [place] Systolic (mm Hg) 2020-11-10 18:35:00 Deo rial Kumar Diastolic (mm Hg) 2020-11-10 18:35:00 Mem orial [place] Heart Rate 2020-11-10 18:35:00 [facility] Kumar Respitory Rate 2020-11-10 18:35:00 Memori al Kumar Height 2020-11-10 18:35:00 177.8 cm [facility] Kumar Weight 2020-11-10 18:35:00 [facility] [place] BMI Calculated 2020-11-10 18:35:00 Memori al Kumar Systolic (mm Hg) 2020-05-12 19:40:00 Deo rial [place] Diastolic (mm Hg) 2020-05-12 19:40:00 Mem orial Kumar Heart Rate 2020-05-12 19:40:00 [facility] Kumar Height 2020-05-12 19:40:00 182.88 cm [facility] [place] Weight 2020-05-12 19:40:00 [facility] [place] BMI Calculated 2020-05-12 19:40:00 Memori al Kumar Systolic (mm Hg) 2019-11-08 18:22:00 Deo rial [place] Diastolic (mm Hg) 2019-11-08 18:22:00 Mem orial [place] Heart Rate 2019-11-08 18:22:00 [facility] Kumar Respitory Rate 2019-11-08 18:22:00 Memori al Kumar Height 2019-11-08 18:22:00 180.34 cm [facility] [place] Weight 2019-11-08 18:22:00 [facility] [place] BMI Calculated 2019-11-08 18:22:00 Memori al Kumar Systolic (mm Hg) 2019-05-07 19:42:00 Deo rial Kumar Diastolic (mm Hg) 2019-05-07 19:42:00 Mem orial Kumar Heart Rate 2019-05-07 19:42:00 [facility] Kumar Respitory Rate 2019-05-07 19:42:00 Memori al [place] Height 2019-05-07 19:42:00 182.88 cm [facility] Kumar Weight 2019-05-07 19:42:00 [facility] Kumar BMI Calculated 2019-05-07 19:42:00 Memori al [place] Systolic (mm Hg) 2019-01-08 18:42:00 Deo rial [place] Diastolic (mm Hg) 2019-01-08 18:42:00 Mem orial [place] Heart Rate 2019-01-08 18:42:00 [facility] Kumar Respitory Rate 2019-01-08 18:42:00 Memori al [place] Height 2019-01-08 18:42:00 182.88 cm [facility] Kumar Weight 2019-01-08 18:42:00 [facility] [place] BMI Calculated 2019-01-08 18:42:00 Memori al [place] Weight 2018-11-06 18:16:00 [facility] Kumar BMI Calculated 2018-11-06 18:16:00 Memori al [place] Heart Rate 2018-11-06 18:16:00 [facility] Kumar Height 2018-11-06 18:16:00 177.8 cm [facility] Kumar Systolic (mm Hg) 2018-11-06 18:16:00 Deo rial [place] Diastolic (mm Hg) 2018-11-06 18:16:00 Mem orial [place] BMI Calculated 2018-10-10 19:58:00 Memori al Kumar Height 2018-10-10 19:58:00 177.8 cm [facility] Kumar Weight 2018-10-10 19:58:00 [facility] Kumar Systolic (mm Hg) 2018-10-10 19:58:00 Deo rial Kumar Diastolic (mm Hg) 2018-10-10 19:58:00 Mem orial [place] Heart Rate 2018-10-10 19:58:00 [facility] Kumar Respitory Rate 2018-10-10 19:58:00 Memori al [place] Procedures Procedure Date / Time Performed Performing Clinician Sourc e PSA,TOTAL AND FREE 2019-01-28 22:33:00 Declan Ferro I [facility] Plan of Care Planned Activity Planned Date Details Comments Source Future Scheduled TESTOSTERONE, Ordered: [facility] Col lege of Test FREE/TOTAL SHGB 01/28/2019 Medicine [code = NOCPT] Future Scheduled MEDICARE AWV [code [facility] of Test = MEDICARE AWV] Medicine Future Scheduled TETANUS SHOT [facility] of Test (ADULT) [code = Medicine TETANUS SHOT (ADULT)] Future Scheduled BMI FOLLOW UP PLAN [facility] [employer] of [employer] [code = BMI FOLLOW Medicine UP PLAN] Future Scheduled FALL SCREEN [code = [facility] of Test FALL SCREEN] Medicine Future Scheduled PNEUMOVAX >=65 [facility] Co llege of Test (PPSV23) [code = Medicine PNEUMOVAX >=65 (PPSV23)] Future Scheduled PREVNAR >= 65 [facility] Col lege of Test (PCV13) [code = Medicine PREVNAR >= 65 (PCV13)] Future Scheduled FLU VACCINE > 6 [facility] C ollege of Test MONTHS [code = FLU Medicine VACCINE > 6 MONTHS] Encounters Start End Encounter Admission Attending Care Care Encounter Source Date/Time Date/Time Type Type Clinicians Facility Department ID 2022-06-16 2022-06-16 Outpatient MHIE MHIE [id number] Memoria 13:15:00 13:15:00 12 alex Heath 2022-06-16 2022-06-16 Outpatient MHIE MHIE [id number] Memoria 13:15:00 13:15:00 12 alex Heath 2022-02-16 2022-02-17 Outpatient MHIE MNA [id number] Memoria 19:15:00 05:59:59 Neurology 11 alex Heath 2022-02-16 2022-02-17 Outpatient MHIE MNA [id number] Memoria 19:15:00 05:59:59 Neurology 11 alex Heath 2022-02-16 2022-02-16 Outpatient SHERWIN Noonan [id number] 13:15:00 23:59:59 Rory Argueta 2022-02-16 2022-02-16 Outpatient MHIE MHIE [id number] Memoria 13:15:00 13:15:00 11 alex Heath 2021-10-15 2021-10-16 Outpatient nullFlavo MNA [id number] Memoria 18:15:00 04:59:59 r Neurology 10 l Jocy Heath 2021-10-15 2021-10-16 Outpatient nullFlavo MNA [id number] Memoria 18:15:00 04:59:59 r Neurology 10 l Jocy Heath 2021-10-15 2021-10-15 [id number] 13:15:00 23:59:59 Rory 10 Kendall 2021-10-15 2021-10-15 Outpatient MHIE MHIE [id number] Memoria 13:15:00 13:15:00 10 alex Heath 2021-05-20 2021-05-21 Outpatient nullFlavo MNA [id number] Memoria 19:00:00 05:59:59 r Neurology 09 l Jocy Heath 2021-05-20 2021-05-21 Outpatient nullFlavo MNA [id number] Memoria 19:00:00 05:59:59 r Neurology 09 l Jocy Heath 2021-05-20 2021-05-20 Outpatient [facility] [id number] 13:00:00 23:59:59 Rory 09 [place] 2021-05-20 2021-05-20 Outpatient MHIE MHIE [id number] Memoria 13:00:00 13:00:00 09 alex Heath 2021-03-09 2021-03-09 Ambulatory nullFlavo MNA [id number] Memoria 19:45:00 19:45:00 Pre-Reg r Neurology 08 l Jocy Heath 2021-03-09 2021-03-09 Ambulatory nullFlavo MNA [id number] Memoria 19:45:00 19:45:00 Pre-Reg r Neurology 08 alex Heath 2021-03-09 2021-03-09 Outpatient MHIE MHIE [id number] Memoria 13:45:00 13:45:00 08 alex Heath 2021-03-09 2021-03-09 Outpatient [facility]SAPNA [facility] [id number] 13:45:00 13:45:00 Rory 08 [place] 2020-11-10 2020-11-11 Outpatient nullFlavo MNA [id number] Memoria 18:15:00 04:59:59 r Neurology 07 l Jocy Heath 2020-11-10 2020-11-11 Outpatient nullFlavo MNA [id number] Memoria 18:15:00 04:59:59 r Neurology 07 l Jocy Heath 2020-11-10 2020-11-10 [facility] [id number] 13:15:00 23:59:59 Roryesha Argueta 2020-11-10 2020-11-10 Outpatient MHIE IE [id number] Memoria 13:15:00 13:15:00 07 l Kumar 2020-05-26 2020-05-28 Outside nullFlavo MNA [id number] Memoria 21:07:06 05:59:59 Medical r Neurology 00 l Records Jocy Heath 2020-05-26 2020-05-28 Outside nullFlavo MNA [id number] Memoria 21:07:06 05:59:59 Medical r Neurology 00 l Records Jocy Heath 2020-05-26 2020-05-27 [id number] 15:07:06 23:59:59 00 2020-05-12 2020-05-13 Outpatient nullFlavo MNA [id number] Memoria 19:30:00 05:59:59 r Neurology 06 l Jocy Heath 2020-05-12 2020-05-13 Outpatient nullFlavo MNA [id number] Memoria 19:30:00 05:59:59 r Neurology 06 l Jocy Heath 2020-05-12 2020-05-12 [facility] [id number] 13:30:00 23:59:59 Roryesha Argueta 2020-05-12 2020-05-12 Outpatient MHIE IE [id number] Memoria 13:30:00 13:30:00 06 alex Heath 2019-11-08 2019-11-09 Outpatient nullFlavo MNA [id number] Memoria 18:00:00 04:59:59 r Neurology 05 l Jocy Heath 2019-11-08 2019-11-09 Outpatient nullFlavo MNA [id number] Memoria 18:00:00 04:59:59 r Neurology 05 l Jocy Kumar 2019-11-08 2019-11-08 Outpatient [facility] [id number] 13:00:00 23:59:59 Rory 05 [place] 2019-11-08 2019-11-08 Outpatient MHIE MHIE [id number] Memoria 13:00:00 13:00:00 05 l Kumar 2019-11-05 2019-11-05 Outpatient MHIE MHIE [id number] Memoria 13:30:00 13:30:00 04 l Kumar 2019-11-05 2019-11-05 Outpatient MHIE MHIE [id number] [facility] 13:30:00 13:30:00 04 l Kumar 2019-05-07 2019-05-08 Outpatient nullFlavo MNA [id number] Memoria 19:30:00 05:59:59 r Neurology 03 l Jocy Heath 2019-05-07 2019-05-08 Outpatient nullFlavo MNA [id number] Memoria 19:30:00 05:59:59 r Neurology 03 l Jocy Heath 2019-05-07 2019-05-07 Outpatient [facility]SCHSAPNA [facility] [id number] 13:30:00 23:59:59 Rory 03 [place] 2019-05-07 2019-05-07 Outpatient MHIE MHIE [id number] Mem[facility] 13:30:00 13:30:00 03 alex Heath 2019-01-28 2019-01-28 Office ALISA Ferro [id number] [facility] 14:25:28 16:12:55 Visit Declan I AMBULATOR [id number] College Y [id number] [facility] 300 e 2019-01-28 2019-01-28 Office ALISA Ferro [id number] 14:25:28 16:12:55 Visit Declan I AMBULATOR [id number] Y [id number] [facility] 2019-01-08 2019-01-09 Outpatient nullFlavo MNA [id number] Mem[facility] 18:30:00 04:59:59 r Neurology 02 alex Heath 2019-01-08 2019-01-09 Outpatient nullFlavo MNA [id number] [facility] 18:30:00 04:59:59 r Neurology 02 alex Heath 2019-01-08 2019-01-08 [id number] 13:30:00 23:59:59 Rory 02 Kendall 2019-01-08 2019-01-08 Outpatient MHIE MHIE [id number] Memoria 13:30:00 13:30:00 02 alex Heath 2018-11-06 2018-11-07 Outpatient nullFlavo MNA [id number] Memoria 18:00:00 04:59:59 r Neurology 01 alex Heath 2018-11-06 2018-11-07 Outpatient nullFlavo MNA [id number] Memoria 18:00:00 04:59:59 r Neurology 01 alex Heath 2018-11-06 2018-11-06 [facility] [id number] 13:00:00 23:59:59 Rory 01 Kendall 2018-11-06 2018-11-06 Outpatient MHIE MHIE [id number] Memoria 13:00:00 13:00:00 01 alex Heath 2018-10-31 2018-10-31 Maintenance Chief 1, Adc Lab [facility] [id number] 11:29:07 11:44:07 Visit [place] 350.1.13.10 [place] [id number] [place] [id number] 2018-10-31 2018-10-31 Orders Doctor PATRICIA [id number] 00:00:00 00:00:00 Only Unassigned, FLORIAN [id number] [place] [facility] [id number] 2018-10-10 2018-10-11 Outpatient nullFlavo MNA [id number] Memoria 20:00:00 04:59:59 r Neurology 00 alex Heath 2018-10-10 2018-10-11 Outpatient nullFlavo MNA [id number] Memoria 20:00:00 04:59:59 r Neurology 00 l Jocy Heath 2018-10-10 2018-10-10 Outpatient SHERWIN Noonan [id number] 15:00:00 23:59:59 Rory 00 Kendall 2018-10-10 2018-10-10 Outpatient JOHNY MCCLAIN [id number] Memoria 15:00:00 15:00:00 00 l Kumar Results Test [...] PSA, FREE (test code = <0.02 NG/ML 29731-3) PSA, % FREE (test code = (NOTE) SEE BELOW % [place] [address]-8) Tammy Lew Joanne ctrochemiluminescence Immunoassay wit h World Health [...] 24 30 >=26 9 12 16 INTERPRETIVE TABLE: Sensitiv ity and specificity for prostate carcin faviola, men of all age groups, no prio r stratification by total PSA: Free PSA c utoff Sensitivity Specificity (Le ss than %) (%) (%) 23 86 30 25 93 20 27 96 14 (Ref: Vahe WJ et al. SHANTE; 27 7: [id number]. Roach YT et al. Urology; 47 :518-524. Lainey RP et al. Urology; 48:45- 50.) Unless Otherwise Indicated, All Testing Performed At: [facility], [address] [place] [id number] Staffing Administrator: Kristina AnthonyIA Number [id number]. [id number] [facility]
[2022-03-14 10:24] LABS: Absolute Lymphocytes (CBC) 1.8 K/uL (0.7-4.9); Hematocrit 38.1 % (39.6-49.0); Lymphocytes % 20.8 % (15.3-44.8); MCV 92.5 fL (80-100); MPV 8.2 fL (7.6-11.3); RBC Red Blood Cell Count 4.11 M/uL (4.33-5.43)
--- NOTE | 2022-03-14 11:13 | RAD REPORT ---
EXAM DESCRIPTION: RAD - Elbow Right 3 View - 03/14/2022 10:51 am CLINICAL HISTORY: Elbow pain FINDINGS: No significant change since March 08, 2022 Bony/calcific densities proximal humerus bilaterally likely chronic No acute fracture or dislocation seen
--- NOTE | 2022-03-14 12:59 | RAD REPORT ---
EXAM DESCRIPTION: CT - CTHCSPWOC - 03/14/2022 12:45 pm CLINICAL HISTORY: Trauma, head and neck injury. fall COMPARISON: Head C Spine Mpr Wo Con dated 03/08/2022 TECHNIQUE: Axial 5 mm thick images of the head were obtained. Axial 2 mm thick images of the cervical spine were obtained with sagittal and coronal reconstruction images generated and reviewed. All CT scans are performed using dose optimization technique as appropriate and may include automated exposure control or mA/KV adjustment according to patient size. FINDINGS: CT HEAD WITHOUT CONTRAST: No acute hemorrhage, hydrocephalus or extra-axial collection is identified.No areas of brain edema or midline shift. Small remote cerebellar infarcts. The paranasal sinuses and mastoids are clear.The calvarium is intact. CT CERVICAL SPINE WITHOUT CONTRAST: No fracture or subluxation.No prevertebral soft tissues swelling is identified. Multilevel cervical s pondylosis with degrees of neural foraminal narrowing. There is fusion across C2-3. This is probably developmental. IMPRESSION: No acute intracranial or cervical spine findings.
--- NOTE | 2022-03-14 15:56 | RAD REPORT ---
EXAM DESCRIPTION: RAD - Chest Single View - 03/14/2022 3:28 pm CLINICAL HISTORY: CHEST PAIN COMPARISON: Chest Single View dated 03/08/2022; Chest Pa And Lat (2 Views) dated 02/15/2022; Chest Si ngle View dated 07/28/2017; CHEST PA AND LAT 2 VIEW dated 03/19/2012 FINDINGS: Lines: None. Lungs: No evidence of edema or pneumonia. Pleural: No significant pleural effusions or pneumothorax. Cardiac: The heart size is within normal limits. Mediastinum: Within normal limits. Bones: No acute fractures. Other: None IMPRESSION: No acute cardiopulmonary disease.
--- NOTE | 2022-03-14 16:02 | EDPHYS ---
Physician Documentation [facility] Name: Gigi Bar Age: 86 yrs Sex: Male : 1935 Arrival Date: 03/14/2022 Time: 09:34 Bed 16 Private MD: ED Physician Kev Florian HPI: 03/14 09:54 This 86 yrs old Male presents to ER via Unassigned with complaints of Fall. ms3 09:54 Details of fall: The patient fell from an upright position, while standing. Onset: The ms3 symptoms/episode began/occurred acutely, just prior to arrival. Associated injuries: The patient sustained abrasion right elbow. Severity of symptoms: At their worst the symptoms were mild, in the emergency department the symptoms are unchanged. 86-year-old male presents via [facility] status post fall while in his kitchen. Patient's states patient did not have loss of consciousness. She states patient did strike his head and right arm while falling. Patient did fall onto tile jarod. Historical: - Allergies: 15:13 No Known Allergies; db - Home Meds: 10:00 Prednisone Oral [Active]; Lasix 40 mg Oral tab 1 tab once daily [Active]; Norvasc 10 mg db oral tab once daily [Active]; rivastigmine tartrate oral [Active]; memantine 10 mg oral tab [Active]; atorvastatin 10 mg oral tab [Active]; Vesicare 10 mg oral tab once daily [Active]; - PMHx: 10:00 Hypertension; Prostate Cancer; db - PSHx: 10:00 Prostate surgery; db - Immunization history:: Adult Immunizations unknown, Client reports receiving the 2nd dose of the Covid vaccine, Flu vaccine is up to date. - Social history:: Smoking status: unknown. ROS: 09:54 Unable to obtain ROS due to baseline dementia. ms3 Exam: 09:54 Constitutional: This is a well developed, well nourished patient who is awake, alert, ms3 and in no acute distress. Head/Face: Normocephalic, atraumatic. Neck: Trachea midline, no cervical lymphadenopathy. Supple, full range of motion without nuchal rigidity, or vertebral point tenderness. No Meningismus. Chest/axilla: Normal chest wall appearance and motion. Nontender with no deformity. Cardiovascular: Regular rate and rhythm with a normal S1 and S2. No gallops, murmurs, or rubs. Normal PMI, no JVD. No pulse deficits. Respiratory: Lungs have equal breath sounds bilaterally, clear to auscultation and percussion. No rales, rhonchi or wheezes noted. No increased work of breathing, no retractions or nasal flaring. Abdomen/GI: Soft, non-tender, with normal bowel sounds. No distension or tympany. No guarding or rebound. No evidence of tenderness throughout. 09:54 Skin: injury, abrasion(s), moderate sized abrasion noted, of the right elbow. 15:32 ECG was reviewed by the Attending Physician. ms3 Vital Signs: 09:35 BP 116 / 62; Pulse 70; Resp 20; Temp 98.2(O); Pulse Ox 100% on R/A; Weight 82.55 kg; db Height 6 ft. 2 in. (187.96 cm); Pain 0/10; 12:00 BP 113 / 71; Pulse 73; Resp 16; Pulse Ox 98% on R/A; db 13:00 BP 127 / 56; Pulse 66; Resp 18; Pulse Ox 95% on R/A; db 14:00 BP 132 / 77; Pulse 74; Resp 18; Pulse Ox 96% on R/A; db 15:00 BP 99 / 71; Pulse 76; Resp 18; Pulse Ox 100% on R/A; db 16:00 BP 121 / 72; Pulse 77; Resp 16; Pulse Ox 95% on R/A; db 17:01 BP 135 / 78; Pulse 54; Resp 16; Pulse Ox 97% ; db 18:00 BP 134 / 70; Pulse 83; Resp 16; Pulse Ox 96% on R/A; db 19:00 BP 135 / 96; Pulse 81; Resp 18; Temp 99.1; Pulse Ox 95% on R/A; Pain 0/10; pf1 09:35 Body Mass Index 23.37 (82.55 kg, 187.96 cm) db MDM: 09:54 Differential diagnosis: abrasion, closed head injury, contusion, fracture. ms3 09:57 Patient medically screened. ms3 16:28 Data reviewed: vital signs, nurses notes, lab test result(s), EKG, radiologic studies, ms3 and as a result, I will admit patient. 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 Counseling: I had a detailed discussion with the patient and/or guardian regarding: the historical points, exam findings, and any diagnostic results supporting the discharge/admit diagnosis, lab results, radiology results, the need for further work-up and treatment in the hospital, to return to the emergency department if symptoms worsen or persist or if there are any questions or concerns that arise at home. ED course: Discussed case with Dr. Arrington and he would like hospitalist to admit this patient is COVID. Discussed case with hospitalist Dr. Siegel accepts patient. All questions were answered. Discussed admission with patient's family they understand and agree with plan.. 03/14 09:53 Order name: Basic Metabolic Panel; Complete Time: 12:07 ms3 03/14 09:53 Order name: CBC with Diff; Complete Time: 12:07 ms3 03/14 09:53 Order name: Urinalysis; Complete Time: 04:24 ms3 03/14 14:39 Order name: SARS RAPID; Complete Time: 16:13 ms3 03/14 15:08 Order name: Troponin High Sensitivity; Complete Time: 20:33 db 03/14 17:41 Order name: Phosphorus; Complete Time: 20:33 EDMS 03/14 09:53 Order name: Elbow Right 3 View XRAY; Complete Time: 12:07 ms3 03/14 17:41 Order name: Creatine Phosphokinase; Complete Time: 20:33 EDMS 03/14 17:41 Order name: NT PRO-BNP; Complete Time: 20:33 EDMS 03/14 17:41 Order name: T4 Free; Complete Time: 20:33 EDMS 03/14 17:41 Order name: Magnesium; Complete Time: 20:33 EDMS 03/14 17:41 Order name: Thyroid Stimulating Hormone; Complete Time: 20:33 EDMS 03/15 03:03 Order name: CBC with Automated Diff; Complete Time: 04:24 EDMS 03/15 03:17 Order name: Basic Metabolic Panel; Complete Time: 04:24 EDMS 03/14 09:53 Order name: Labs collected and sent; Complete Time: 10:31 ms3 03/14 12:16 Order name: Head C Spine Mpr Wo Con; Complete Time: 14:13 EDMS 03/14 15:08 Order name: EKG; Complete Time: 15:09 db 03/14 15:08 Order name: EKG - Nurse/Tech; Complete Time: 18:54 db 03/14 15:08 Order name: Chest Single View XRAY; Complete Time: 16:02 db 03/14 20:10 Order name: US; Complete Time: 20:33 EDMS 03/15 17:03 Order name: MRI; Complete Time: 22:41 EDMS EC:32 Rate is 80 beats/min. Rhythm is regular. QRS [place] is Normal. [place] interval is normal. QT ms3 interval is normal. Clinical impression: NSR w/ Non-specific ST/T Changes and with PVCs. Interpreted by me. Reviewed by me. Administered Medications: 18:15 Drug: Ativan (LORazepam) 0.5 mg Route: IVP; Site: right antecubital; db 18:54 Follow up: Response: No adverse reaction; Anxiety decreased db Disposition: 16:29 Chart complete. ms3 Disposition Summary: 03/14/22 16:01 Hospitalization Ordered Hospitalization Status: Observation ms3 Condition: Stable ms3 Problem: new ms3 Symptoms: are unchanged ms3 Bed/Room Type: Standard ms3 Provider: Linda Siegel(03/14/22 16:22) ms3 Location: Telemetry/MedSurg (observation)(03/15/22 20:48) cg Room Assignment: 223(03/15/22 20:48) Diagnosis - Syncope Near ms3 - Repeated falls ms3 - Hypokalemia ms3 - SARS-associated coronavirus as the cause of diseases classified elsewhere ms3 Forms: - Medication Reconciliation Form ms3 - SBAR form ms3 Signatures: Dispatcher [employer] EDMaryanne Eng, RN RN cg Kev Florian DO DO ms3 Tigist Chen RN RN db Gloria Curran PA-C PA-C sb4 finley, Pamala RN RN pf1 Corrections: (The following items were deleted from the chart) 16:22 16:01 Cezar Arrington ms3 ms3 19:44 16:01 Telemetry/MedSurg (observation) ms3 cg 19:44 16:01 ms3 cg 03/15 20:48 1212 19:44 [facility] ER HOLD cg cg 03/15 20:48 03/14 19:44 ERHOLD- cg cg
--- NOTE | 2022-03-14 16:02 | ER ---
Nurse's Notes [facility] Name: Gigi Bar Age: 86 yrs Sex: Male : 1935 Arrival Date: 03/14/2022 Time: 09:34 Bed 16 Private MD: Diagnosis: Syncope Near;Repeated falls;Hypokalemia;SARS-associated coronavirus as the cause of diseases classified elsewhere Presentation: 03/14 09:35 Chief complaint: EMS states: Patient has dizziness x 2 days. today dizziness was worse db and fell this AM. Right arm skin tear. Patient glucose 99. 09:35 Coronavirus screen: Vaccine status: Patient reports receiving the 2nd dose of the covid db vaccine. Client denies travel out of the [place] in the last 14 days. At this time, the client does not indicate any symptoms associated with coronavirus-19. Ebola Screen: Patient negative for fever greater than or equal to 101.5 degrees Fahrenheit, and additional compatible Ebola Virus Disease symptoms Patient denies exposure to infectious person. Patient denies travel to an Ebola-affected area in the 21 days before illness onset. No symptoms or risks identified at this time. Initial Sepsis Screen: Does the patient meet any 2 criteria? No. Patient's initial sepsis screen is negative. Does the patient have a suspected source of infection? No. Patient's initial sepsis screen is negative. Risk Assessment: Do you want to hurt yourself or someone else? Patient reports no desire to harm self or others. Onset of symptoms was March 14, 2022. 09:35 Method Of Arrival: EMS: [facility] db 09:35 Acuity: NATALIE 2 db Triage Assessment: 10:00 General: Appears in no apparent distress. comfortable, Behavior is calm, cooperative, db appropriate for age, quiet. Pain: Complains of pain in right arm. Neuro: Level of Consciousness is awake, alert, obeys commands, Oriented to person, time, hx of alzheimers. Historical: - Allergies: 15:13 No Known Allergies; db - Home Meds: 10:00 Prednisone Oral [Active]; Lasix 40 mg Oral tab 1 tab once daily [Active]; Norvasc 10 mg db oral tab once daily [Active]; rivastigmine tartrate oral [Active]; memantine 10 mg oral tab [Active]; atorvastatin 10 mg oral tab [Active]; Vesicare 10 mg oral tab once daily [Active]; - PMHx: 10:00 Hypertension; Prostate Cancer; db - PSHx: 10:00 Prostate surgery; db - Immunization history:: Adult Immunizations unknown, Client reports receiving the 2nd dose of the Covid vaccine, Flu vaccine is up to date. - Social history:: Smoking status: unknown. Screenin:19 Abuse screen: Denies threats or abuse. Denies injuries from another. Nutritional db screening: No deficits noted. Tuberculosis screening: No symptoms or risk factors identified. Fall Risk Fall in past 12 months (25 points). No secondary diagnosis (0 pts). IV access (20 points). Ambulatory Aid- Crutches/Cane/Walker (15 pts). Gait- Normal/Bed Rest/Wheelchair (0 pts) Mental Status- Overestimates/Forgets Limitations (15 pts.). Total Jay Fall Scale indicates High Risk Score (45 or more points). Fall prevention measures have been instituted. Side Rails Up X 2 Placed Close to Nursing Station Frequent Obs/Assessments Occuring Family Present and informed to notify staff if the need to leave the bedside. Assessment: 10:17 Reassessment: Patient appears in no apparent distress at this time. Patient is alert, db oriented x 3, equal unlabored respirations, skin warm/dry/pink. Please see triage for initial assessment. General: Appears in no apparent distress. comfortable, Behavior is calm, cooperative, appropriate for age, quiet. Pain: Denies pain. Neuro: No deficits noted. Cardiovascular: No deficits noted. Capillary refill < 3 seconds. Respiratory: No deficits noted. Airway is patent Respiratory effort is even, unlabored, Respiratory pattern is regular, symmetrical. GI: No deficits noted. No signs and/or symptoms were reported involving the gastrointestinal system. GI: Abdomen is flat. : uses brief. is able to use the restroom. EENT: No deficits noted. No signs and/or symptoms were reported regarding the EENT system. Derm: Skin has skin tears on right elbow Wound noted right arm Wound is right elbow skin tear. 11:00 Reassessment: Patient appears in no apparent distress at this time. No changes from db previously documented assessment. Patient and/or family updated on plan of care and expected duration. Pain level reassessed. Patient is alert, oriented x 3, equal unlabored respirations, skin warm/dry/pink. 12:00 Reassessment: Patient appears in no apparent distress at this time. No changes from db previously documented assessment. Patient and/or family updated on plan of care and expected duration. Pain level reassessed. Patient is alert, oriented x 3, equal unlabored respirations, skin warm/dry/pink. 13:00 Reassessment: Patient appears in no apparent distress at this time. No changes from db previously documented assessment. Patient and/or family updated on plan of care and expected duration. Pain level reassessed. Patient is alert, oriented x 3, equal unlabored respirations, skin warm/dry/pink. 14:00 Reassessment: Patient appears in no apparent distress at this time. No changes from db previously documented assessment. Patient and/or family updated on plan of care and expected duration. Pain level reassessed. Patient is alert, oriented x 3, equal unlabored respirations, skin warm/dry/pink. 15:00 Reassessment: Patient appears in no apparent distress at this time. No changes from db previously documented assessment. Patient and/or family updated on plan of care and expected duration. Pain level reassessed. Patient is alert, oriented x 3, equal unlabored respirations, skin warm/dry/pink. 16:30 Reassessment: Patient appears in no apparent distress at this time. Patient and/or db family updated on plan of care and expected duration. Pain level reassessed. Patient is alert, oriented x 3, equal unlabored respirations, skin warm/dry/pink. patients right elbow wound dressing applied with non stick dressing. 18:00 Reassessment: Patient and/or family updated on plan of care and expected duration. Pain db level reassessed. patient moving and getting agitated. family states patient needs something to calm down. Notified Dr. Florian. See MAR for medication administration. 18:37 Reassessment: Patient appears in no apparent distress at this time. Patient and/or db family updated on plan of care and expected duration. Pain level reassessed. Patient is alert, oriented x 3, equal unlabored respirations, skin warm/dry/pink. patient is resting now. no complaints. 19:00 General: Appears in no apparent distress. comfortable, well groomed, well developed, pf1 Behavior is calm, cooperative. 19:00 Pain: Denies pain. Neuro: Level of Consciousness is awake, alert, obeys commands, pf1 Oriented to person. Cardiovascular: No deficits noted. Capillary refill < 3 seconds. Respiratory: No deficits noted. Airway is patent Respiratory effort is even, unlabored, Respiratory pattern is regular, symmetrical, Breath sounds are clear bilaterally. GI: No deficits noted. No signs and/or symptoms were reported involving the gastrointestinal system. Abdomen is flat, Bowel sounds present X 4 quads. Abd is soft and non tender X 4 quads. : No deficits noted. No signs and/or symptoms were reported regarding the genitourinary system. EENT: No deficits noted. No signs and/or symptoms were reported regarding the EENT system. Derm: Skin has skin tears on Patient has skin tear to right elbow Wound noted right elbow. Vital Signs: 09:35 BP 116 / 62; Pulse 70; Resp 20; Temp 98.2(O); Pulse Ox 100% on R/A; Weight 82.55 kg; db Height 6 ft. 2 in. (187.96 cm); Pain 0/10; 12:00 BP 113 / 71; Pulse 73; Resp 16; Pulse Ox 98% on R/A; db 13:00 BP 127 / 56; Pulse 66; Resp 18; Pulse Ox 95% on R/A; db 14:00 BP 132 / 77; Pulse 74; Resp 18; Pulse Ox 96% on R/A; db 15:00 BP 99 / 71; Pulse 76; Resp 18; Pulse Ox 100% on R/A; db 16:00 BP 121 / 72; Pulse 77; Resp 16; Pulse Ox 95% on R/A; db 17:01 BP 135 / 78; Pulse 54; Resp 16; Pulse Ox 97% ; db 18:00 BP 134 / 70; Pulse 83; Resp 16; Pulse Ox 96% on R/A; db 19:00 BP 135 / 96; Pulse 81; Resp 18; Temp 99.1; Pulse Ox 95% on R/A; Pain 0/10; pf1 09:35 Body Mass Index 23.37 (82.55 kg, 187.96 cm) db ED Course: 09:34 Patient arrived in ED. db 09:35 Kev Florian DO is Attending Physician. ms3 09:58 Tigist Chen, ELIAS is Primary Nurse. db 10:00 Triage completed. db 10:08 Arm band placed on right wrist. db 10:17 Maintain EMS IV. Dressing intact. Good blood return noted. Site clean \T\ dry. Gauge \T\ db site: 18 G Right AC. 10:53 Elbow Right 3 View XRAY In Process Unspecified. EDMS 12:48 Head C Spine Mpr Wo Con In Process Unspecified. EDMS 15:10 Patient has correct armband on for positive identification. Bed in low position. Call db light in reach. Side rails up X2. 15:29 Chest Single View XRAY In Process Unspecified. EDMS 16:01 Cezar Arrington MD is Hospitalizing Provider. ms3 16:22 Linda Siegel MD is Hospitalizing Provider. ms3 17:28 Pillow given. pt moved form ER stretcher to hospital bed. jd3 19:44 No provider procedures requiring assistance completed. pf1 19:44 Patient admitted, IV remains in place. pf1 Administered Medications: 18:15 Drug: Ativan (LORazepam) 0.5 mg Route: IVP; Site: right antecubital; db 18:54 Follow up: Response: No adverse reaction; Anxiety decreased db Medication: 19:30 VIS not applicable for this client. pf1 Outcome: 16:01 Decision to Hospitalize by Provider. ms3 19:44 Admitted to ER Hold. Please see [facility] for further documentation. pf1 19:44 Condition: stable 19:44 Instructed on the need for admit, Demonstrated understanding of instructions. pf1 03/15 22:56 Patient left the ED. pf1 Signatures: Dispatcher [employer] EDMS Reggie De RN RN jd3 Kev Florian DO DO ms3 Tigist Chen RN RN db Alina moseley, ELIAS RN pf1 Corrections: (The following items were deleted from the chart) 03/14 10:00 09:35 Chief complaint: EMS states: Patient has dizziness x 2 days. today dizziness was db worse and fell this AM. Right arm skin tear. Patient glucose db
[2022-03-14 16:07] LABS: SARS-CoV-2 Antigen Rapid Res Positive (Negative)
[2022-03-14] MEDS ORDERED: ACETAMINOPHEN 325 MG TABLET PO PRN (16:38)
[2022-03-14] MEDS ORDERED: HYDROCODONE/APAP 5/325 MG TAB PO PRN (16:38)
[2022-03-14] MEDS ORDERED: ONDANSETRON 4 MG/2 ML VIAL IV PRN (16:44)
--- NOTE | 2022-03-14 16:49 | P.HP ---
Certification for Inpatient Patient admitted to: Observation With expected LOS: <2 Midnights Patient will require the following post-hospital care: None Practitioner: I am a practitioner with admitting privileges, knowledge of patient current condition, hospital course, and medical plan of care. Services: Services provided to patient in accordance with Admission requirements found in Title 42 Section 412.3 of the Code of Federal Regulations Patient History Date of Service: 03/14/22 Reason for admission: Syncope, frequent falls History of Present Illness: Patient is an 86-year-old male with a past medical history significant for hypertension, prostate cancer, dementia, hyperlipidemia, overactive bladder who presents with complaint of syncope onset today. Patient currently alert and oriented x1. Patient is confused and unable to provide any history. Family reported that patient fell from an upright position. Family reported that pat ient hit his head and right arm but did not lose consciousness. Patient has abrasion on the right arm. No other signs and symptoms reported. Symptoms are aggravated or relieved by nothing. Patient was brought to the hospital for medical evaluation. Of note, at time of assessment patient was noted to be agitated and confused. Family also reported that patient's blood pressure was low with SBP in the 60s when assessed after the fall Allergies No Known Allergies Allergy (Verified 07/29/15 07:10) Home Medications: Atorvastatin Calcium [Lipitor*] 20 mg PO DAILY 10/22/12 Sildenafil Citrate [Viagra] 100 mg PO PRN PRN 10/22/12 Multivitamin [Multivitamins] 1 each PO DAILY 07/29/15 predniSONE [Deltasone] 20 mg PO SEECOM 7 Days #10 tab 03/09/22 - Past Medical/Surgical History -: Dementia -: Hypertension -: Hyperlipidemia Past Surgical History: Reviewed- Non-Contributory Psychosocial/ Personal History: Patient lives at home with his - Social History Smoking Status: Unknown if ever smoked Alcohol use: No CD- Drugs: No Caffeine use: No Place of Residence: Home Review of Systems is unable to be obtained (Patient confused.) Physical Examination - Physical Exam General: Alert, Oriented x1, Demented, Confused HEENT: Atraumatic, Normocephalic, PERRLA, EOMI Neck: 2+ carotid pulse no bruit, No Thyromegaly, Without JVD or thyroid abnormality Respiratory: Clear to auscultation bilaterally, Diminished Cardiovascular: No edema, Normal pulses, Normal S1 S2, No murmurs Capillary refill: <2 Seconds Gastrointestinal: Normal bowel sounds, Non-distended, No tenderness Musculoskeletal: No clubbing, No swelling, No contractures Integumentary: Skin breakdown Neurological: Normal speech, Normal tone, Normal affect Lymphatics: No axilla or inguinal lymphadenopathy - Studies Laboratory Data (last 24 hrs) 03/14/22 10:14: WBC 8.80, Hgb 13.1 L, Hct 38.1 L, Plt Count 170 03/14/22 10:14: Sodium 140, Potassium 3.0 L, BUN 17, Creatinine 0.97, Glucose 90 Assessment and Plan - Plan --Syncope. Carotid Doppler to rule out any carotid artery stenosis. Patient with a history of frequent falls. PT eval and treat. MRI brain pending for further assessment. We will get some orthostatic vital signs. Fall precautions. Continue supportive care. --Acute encephalopathy. Patient has a history of dementia. UA pending. CT head does not indicate any acute intracranial abnormality. MRI brain for further assessment. Continue supportive care. --Hypertension. Stable. We will manage BP with hydralazine as needed. -- History of prostrate cancer. Status unknown. Continue supportive care. --Dementia. Patient alert and oriented x1. Continue home medication. --Hyperlipidemia. Continue statin. --COVID-19 infection. Patient asymptomatic. Continue airborne and contact pr ecautions. --Overactive bladder. Continue home medication. --Hypokalemia. Replete as needed. --CKD 2. Stable. We will continue to monitor renal functions. --Anemia of chronic disease. H&H stable. We will continue to monitor hemoglobin and transfuse if less than 7.0. --DVT prophylaxis with heparin subQ. Discharge Plan: Home Plan to discharge in: 48 Hours - Advance Directives Does patient have a Living Will: No Does patient have a Durable POA for Healthcare: No - Code Status/Comfort Care Code Status Assessed: Yes Physician Review: Patient Assessed, Agree with Above Assessment and Plan Critical Care: No
[2022-03-14] MEDS ORDERED: POTASSIUM CL SA 10 MEQ TAB PO ONE ×2 (17:00→22:50)
[2022-03-14 17:41] LABS: Magnesium 2.2 mg/dL (1.6-2.4); Phosphorus 2.6 mg/dL (2.5-4.9); Thyroid Stimulating Hormone 0.733 uIU/mL (0.358-3.740)
[2022-03-14] MEDS ORDERED: LORazepam 2 MG/ML VIAL ONE (18:07)
[2022-03-14] MEDS ORDERED: LORazepam 2 MG/ML VIAL IV PRN (19:26)
--- NOTE | 2022-03-14 20:09 | RAD REPORT ---
EXAM DESCRIPTION: - CP - 03/14/2022 5:54 pm CLINICAL HISTORY: Syncope COMPARISON: None TECHNIQUE: Real-time sonographic evaluation of both carotid systems was performed. Doppler interroga tion was performed with waveform tracing bilaterally. FINDINGS: Color Doppler, grayscale, and spectral analysis was performed. Markedly limited exam as the patient was uncooperative. The left carotid system was not well evaluate d. The right common carotid artery and internal carotid artery demonstrate normal waveforms, color fl ow, and velocities. Some hard and soft plaque is present at the right carotid bulb. The right ECA pea k systolic velocity measures 162 cm/s which would suggest a moderate stenosis. The left carotid arteries were not adequately assess. Neither vertebral artery was adequately assess. IMPRESSION: Significantly limited exam due to a combative and uncooperative patient. The right commo n carotid and internal carotid arteries are patent. The left carotid system was not adequately evalua adilson.
[2022-03-14] MEDS ORDERED: HEPARIN 5000 UNIT/ML 1 ML VIAL ONE (22:50)
[2022-03-14] MEDS: NA CHLORIDE 0.9% 1,000 ML IV SCH (23:00)
[2022-03-14] MEDS: HEPARIN 5000 UNIT/ML 1 ML VIAL SQ SCH (23:00)
[2022-03-14] MEDS ORDERED: POTASSIUM 25 MEQ EFFERV TAB ONE (23:12)
[2022-03-14] MEDS ORDERED: NA CHLORIDE 0.9% 1,000 ML ONE (23:12)
[2022-03-15 01:14] LABS: Specific Gravity 1.011 (1.005-1.030); Urine Bilirubin NEGATIVE (Negative); Urine Blood Negative (Negative); Urine Clarity Clear (Clear); Urine Color Light-Yellow (Yellow); Urine Glucose NEGATIVE (Negative); Urine Protein NEGATIVE (Negative); Urine Urobilinogen 1+ (Normal); Urine pH 7.5 (5.0-7.0)
[2022-03-15 02:59] LABS: Absolute Lymphocytes (CBC) 1.7 K/uL (0.7-4.9); Hematocrit 40.8 % (39.6-49.0); Lymphocytes % 18.6 % (15.3-44.8); MCV 92.1 fL (80-100); RBC Red Blood Cell Count 4.43 M/uL (4.33-5.43)
[2022-03-15 03:11] LABS: Potassium 3.6 mmol/L (3.5-5.1)
[2022-03-15 05:34] VITALS: BMI 24.7
[2022-03-15] MEDS ORDERED: ATORVASTATIN 20 MG TAB ONE (08:28)
[2022-03-15] MEDS ORDERED: MULTIVITAMIN TAB PO ONE (08:28)
[2022-03-15] MEDS ORDERED: ASPIRIN 81 MG CHEWABLE TABLET ONE (08:28)
[2022-03-15] MEDS ORDERED: HEPARIN 5000 UNIT/ML 1 ML VIAL ONE ×2 (08:28→21:20)
[2022-03-15] MEDS: MULTIVITAMIN TAB PO SCH (08:53)
[2022-03-15] MEDS: ASPIRIN 81 MG CHEWABLE TABLET PO SCH (08:53)
[2022-03-15] MEDS: ATORVASTATIN 20 MG TAB PO SCH (08:53)
[2022-03-15] MEDS: HEPARIN 5000 UNIT/ML 1 ML VIAL SQ SCH ×2 (08:53→21:55)
[2022-03-15] MEDS ORDERED: HOME MED 1 EA UNK (Multivitamin [Multivitamins] Capsule) PO SCH (09:00)
--- NOTE | 2022-03-15 14:36 | EKG ---
Test Date: 2022-03-14 Test Time: 15:32:25 Crater And Packer: MOIRA MEASUREMENT RESULTS: Intervals: Rate: 80 LA: 188 QRSD: 104 QT: 422 QTc: 486 [place]: P: 82 LA: 188 QRS: 37 T: 77 INTERPRETIVE STATEMENTS: Sinus rhythm with occasional premature ventricular complexes Cannot rule out Inferior infarct, age undetermined Cannot rule out Anterior infarct, age undetermined Abnormal ECG Compared to ECG 07/28/2017 12:50:45 Ventricular premature complex(es) now present Myocardial infarct finding now present Sinus bradycardia no longer present Electronically Signed On 03-15-22 14:34:36 INTERACTIVE MEDIA DESIGNER by Stephan Alcantar
[2022-03-15] MEDS ORDERED: LORazepam 2 MG/ML VIAL ONE ×2 (15:53→21:24)
--- NOTE | 2022-03-15 17:03 | RAD REPORT ---
EXAM DESCRIPTION: MRI - Brain Wo Cont - 03/15/2022 4:53 pm CLINICAL HISTORY: dizziness Headache, drowsiness, CVA symptomology COMPARISON: Brain Wo Cont dated 10/23/2018 TECHNIQUE: Multi-sequence, multiplanar MR imaging of the brain was performed without contrast. FINDINGS: No intracranial hemorrhage, hydrocephalus or extra-axial fluid collections. Moderate gener alized brain atrophy. Moderate confluent T2/FLAIR hyperintensity in the periventricular and deep whit e matter is present compatible with chronic microvascular ischemic changes. No edema or shift of midl ine structures. No findings to suspect brain mass. DWI is negative for acute CVA. Midline structures are normally formed. Mastoid air cells and paranasal sinuses are clear. IMPRESSION: Negative for acute CVA or other acute intracranial abnormality.
[2022-03-15] MEDS: RIVASTIGMINE TARTRATE 1.5 MG PO SCH (19:00)
[2022-03-15] MEDS: LORazepam 2 MG/ML VIAL IV PRN (21:30)
--- NOTE | 2022-03-15 23:26 | P.PN ---
Date of Service: 03/15/22 Subjective Patient is clinically doing much better. Strength has improved. He walked with physical therapy really well. He is sleeping hard bed and he has been lightheaded on multiple occasions for the family. Workup is pending at this time. Physical Examination - Physical Exam General: Alert, Oriented x1, Demented, Confused Respiratory: Clear to auscultation bilaterally, Diminished Cardiovascular: No edema, Normal pulses, Normal S1 S2, No murmurs Gastrointestinal: Normal bowel sounds, Non-distended, No tenderness Neurological: Normal speech, Normal tone, Normal affect Assessment and Plan - Assessment --Syncope. --Acute encephalopathy. --Hypertension. --History of prostrate cancer. --Dementia. --Hyperlipidemia. --COVID-19 infection. --Overactive bladder. --Hypokalemia. --CKD 2. Stable. --Anemia of chronic disease. --DVT prophylaxis with heparin subQ. - Plan -Carotid Doppler to rule out any carotid artery stenosis. -Patient with a history of frequent falls. -PT eval and treat. -MRI brain pending for further assessment. -We will get some orthostatic vital signs. -Fall precautions. -Continue supportive care. -Patient has a history of dementia. -CT head does not indicate any acute intracranial abnormality. -MRI brain for further assessment. -We will manage BP with hydralazine as needed.
[2022-03-16] MEDS: NA CHLORIDE 0.9% 1,000 ML IV SCH ×3 (01:40→17:12)
[2022-03-16] MEDS: BENZONATATE 100 MG CAP PO PRN (05:04)
[2022-03-16 05:11] LABS: Absolute Lymphocytes (CBC) 2.7 K/uL (0.7-4.9); Hematocrit 43.1 % (39.6-49.0); Lymphocytes % 25.5 % (15.3-44.8); MCV 92.2 fL (80-100); MPV 9.4 fL (7.6-11.3); RBC Red Blood Cell Count 4.67 M/uL (4.33-5.43)
[2022-03-16 06:22] LABS: ALT/SGPT 39 U/L (16-61); AST/SGOT 33 U/L (15-37); Alkaline Phosphatase 96 U/L (45-117); BUN Blood Urea Nitrogen 13 mg/dL (7-18); Bicarbonate 27 mmol/L (21-32); Folic Acid, (Folate) > 20.0 ng/mL (3.1-17.5); Glomerular Filtration Rate 84 ml/min (=/>90); Glucose Level 123 mg/dL (74-106); HDL Cholesterol 44 mg/dL (40-60); LDL Cholesterol, Calculated 60 mg/dL (<130); Magnesium 2.2 mg/dL (1.6-2.4); NT PRO-BNP 275 pg/mL (<450); Potassium 3.2 mmol/L (3.5-5.1); Protein, Total 6.4 g/dL (6.4-8.2); Sodium Level 135 mmol/L (136-145)
[2022-03-16 08:22] LABS: Blood Morphology Comment NOT SEEN (NOT SEEN); Platelet Estimate ADEQ; Platelets, Giant PRESENT
--- NOTE | 2022-03-16 08:30 | RAD REPORT ---
EXAM DESCRIPTION: - CP - 03/16/2022 5:47 am CLINICAL HISTORY: AMS Headache, drowsiness COMPARISON: Carotid Artery Bilateral dated 03/14/2022 TECHNIQUE: Real-time sonographic evaluation of both carotid systems was performed. Doppler interroga tion was performed with waveform tracing bilaterally. FINDINGS: The exam was significantly limited due to patient movement. Right common carotid artery could not be assessed. Moderate mixed plaque suspected left carotid bulb. No velocity measurements. Left vertebral artery not well seen. Right vertebral artery shows forward flow. IMPRESSION: Significantly limited examination. Moderate mixed plaque suspected left carotid bulb. No definitive hemodynamically significant stenosis . MRA or CTA could be performed further evaluation of the carotid system is clinically needed.
[2022-03-16] MEDS ORDERED: RIVASTIGMINE TARTRATE 6 MG PO SCH (09:00)
[2022-03-16] MEDS ORDERED: POTASSIUM 25 MEQ EFFERV TAB PO ONE (09:00)
[2022-03-16] MEDS: RIVASTIGMINE TARTRATE 1.5 MG PO SCH ×2 (09:00→17:13)
[2022-03-16] MEDS: ASPIRIN 81 MG CHEWABLE TABLET PO SCH (09:00)
[2022-03-16] MEDS ORDERED: RIVASTIGMINE TARTRATE 1.5 MG PO SCH (09:00)
[2022-03-16] MEDS: MULTIVITAMIN TAB PO SCH (09:00)
[2022-03-16] MEDS: ATORVASTATIN 20 MG TAB PO SCH (09:00)
[2022-03-16] MEDS ORDERED: ALBUTEROL 2.5 MG/3 ML NEB SOL NEB ONE (09:46)
[2022-03-16] MEDS ORDERED: IPRATROPIUM BROM 0.5MG/2.5ML NEB ONE (09:46)
[2022-03-16] MEDS ORDERED: HYDROCORTISONE SUC 100 MG INJ IV ONE (09:46)
[2022-03-16] MEDS: HEPARIN 5000 UNIT/ML 1 ML VIAL SQ SCH ×2 (10:15→20:55)
--- NOTE | 2022-03-16 10:21 | RAD REPORT ---
EXAM DESCRIPTION: RAD - Chest Single View - 03/16/2022 10:14 am CLINICAL HISTORY: Cough/aspiration Chest pain. COMPARISON: Chest Single View dated 03/14/2022; Chest Single View dated 03/08/2022; Chest Pa And Lat (2 Views) dated 02/15/2022; Chest Single View dated 07/28/2017 FINDINGS: Portable technique limits examination quality. Mild to moderate bilateral pulmonary opacities are present which may represent pulmonary edema or int erest infection. Lung aeration appears mildly worsened since the comparative study. The heart is mild ly enlarged in size. No displaced fractures.
--- NOTE | 2022-03-16 16:57 | P.PN ---
Date of Service: 03/16/22 Subjective Pt choked on some food this morning for breakfast. We will get speech therapy consultation. Chest x-ray with questionable worsening of pneumonia. Continue with some IV antibiotics. EEG pending. Neurology consultation pending. Patient had a short run of A. fib with RVR but now back with rate control. Follows up with cardiology and will consult cardiology. 03/15 patient is clinically doing much better. Strength has improved. He walked with physical therapy really well. He is sleeping hard bed and he has been lightheaded on multiple occasions for the family. Workup is pending at this time. Physical Examination - Physical Exam General: Alert, Oriented x1, Demented, Confused Respiratory: Clear to auscultation bilaterally, Diminished Cardiovascular: No edema, Normal pulses, Normal S1 S2, No murmurs Gastrointestinal: Normal bowel sounds, Non-distended, No tenderness Neurological: Normal speech, Normal tone, Normal affect Assessment and Plan - Assessment --Aspiration pneumonia --Aflutter --Syncope/seizure. --Confusion/delirium --Alzheimer's dementia --Hypertension. --History of prostrate cancer. --Dementia. --Hyperlipidemia. --COVID-19 infection. --Overactive bladder. --Hypokalemia. --CKD 2. Stable. --Anemia of chronic disease. --DVT prophylaxis with heparin subQ. - Plan -IV abx -EEG -Cardiology and neurology consultation -steroid may have caused delirium; dc -repeated near syncope/syncope maybe from namenda because of orthostasis-hold -Carotid Doppler reviewed -PT eval and treat appreciated -MRI brain negative for acute pathology- atrophy -Fall precautions. -Continue supportive care. -We will manage BP with hydralazine as needed.
[2022-03-16] MEDS: PIPER TAZO 3.375 GM in NA CHLORIDE 0.9% 100 ML IV SCH (17:13)
[2022-03-16] MEDS: HYDROCODONE/CHLORPHEN 5 ML/OSYR PO PRN (20:56)
--- NOTE | 2022-03-16 22:51 | CON ---
Date of Consultation: 03/16/2022 Reason For Consultation: Syncope, dementia. History Of Present Illness: This is an 86-year-old gentleman with history of Alzheimer disease. He had an episode last week really where he had a syncopal spell and fell, came to the emergency departm ent. He was found to have COVID, and it was felt that probably he was just as well off being managed at home, so he was discharged to home with prednisone as the new medication. He is on Exelon chroni guillermina for the dementia, which has been progressively worse over this year especially, and he was tryi ng to recuperate at home and then, Monday had an episode and then he fell to the ground an d brought back to the emergency department. CT scan of the brain unremarkable. He is confused and i t was felt most prudent to have him admitted to the hospital for evaluation of the syncopal spell. Teresa john had an episode of atrial flutter in cardiology has been consulted. Brain MRI, no stroke. Carotid Doppler, not the best quality, but no hemodynamically significant stenosis. Chest x-ray, bilateral p ulmonary opacities and he is receiving IV antibiotics as well as general supportive care. Given the syncopal spell and the dementia history, I was consulted. Past Medical History: Hypertension, dementia. The patient has COVID pneumonia presently, hyperlipid emia. Social History: Lives with his . His son lives next door. Family History: Noncontributory. Review of Systems: General: The patient is somewhat tachypneic. No fevers. Eyes: Negative. Ears, Nose, Throat: He is having some dysphagia, and the swallow study is pending. Cardiovascular: Arrhythmia is noted. Pulmonary: COVID is noted. GI: Negative. : Negative. Musculoskeletal: Arthralgias. Neurologic: As noted. Psychiatric: Negative. Endocrine: Negative. Physical Examination: Vital Signs: He is afebrile. Heart rate 70, respirations 20, blood pressure 138/75, oxygen sats 94% . General: He is awake, but confused and recognizes me. Knows his name. Pupils reactive. Ocular mot ion full. Blinks to threat. Neck: Supple. Extremities: Strength full. Sensation intact to pain. Reflexes symmetric. Toes are neutral. Gait and cerebellar not tested. Pertinent Laboratory Data: White count 10.4, hemoglobin and hematocrit normal, platelets normal. CO VID positive. Sodium 135. Creatinine normal. Brain MRI, no acute stroke. Carotid Doppler, limited exam, mixed plaque on the left, no definite hemodynamically significant stenosis. Impression: 1.Syncope; query seizure-like episodes. 2.Alzheimer disease. Plan: We will review EEG. I think it is reasonable to continue to hold the Exelon for now. br ought up his medications and those are being reviewed to see if perhaps the maybe got a little c onfused and doubled up on some of them. Would administer some intravenous thiamine while he has IV a ccess. Thank you for the consult. We will continue to follow with you. MANAS Voice ID: [id number] Report ID: [id number]
[2022-03-17] MEDS: PIPER TAZO 3.375 GM in NA CHLORIDE 0.9% 100 ML IV SCH ×3 (00:35→17:26)
[2022-03-17] MEDS: NA CHLORIDE 0.9% 1,000 ML IV SCH ×2 (04:20→17:40)
--- NOTE | 2022-03-17 06:53 | EEG ---
CHART: [id number] TEST ID#: [id number] DATE OF STUDY: 03-16-2022 THE EEG WAS RECORDED IN THE EEG LABORATORY ON A 17 CHANNEL MACHINE. ELECTRODES WERE APPLIED IN THE USUAL MANNER USING THE INTERNATIONAL 10-20 SYSTEM. THE WAKING BACKGROUND RHYTHM IN THIS RECORD CONSISTS OF POORLY DEVELOPED AND POORLY ORGANIZED WAVES OF UP TO 8 HZ., MAXIAMAL IN THE POSTERIOR HEAD REGIONS WHICH ATTENUATE NORMALLY WITH EYE OPENING. IN DROWSINESS THE BACKGROUND DROPS TO 7 HZ. THERE ARE NO FOCAL OR LATERALIZING FEATURES. NO EPILEPTIFORM ACTIVITY APPEARS. SLEEP DID NOT OCCUR. HYPERVENTILATION WAS NOT PERFORMED. PHOTIC STIMULATION PRODUCED POOR DRIVING BILATERALLY. IMPRESSION: ABNORMAL EEG BECAUSE OF GENERALIZED SLOWING OF THE BACKGROUND. THE ABOVE SUGGESTS DIFFUSE CEREBRAL DYSFUNCTION.
--- NOTE | 2022-03-17 08:05 | EKG ---
Test Date: 2022-03-16 Test Time: 11:35:12 Gas Substation Operator: AMRITA MEASUREMENT RESULTS: Intervals: Rate: 88 [place]: QRSD: 96 QT: 414 QTc: 500 [place]: P: 83 [place]: QRS: 53 T: 2 INTERPRETIVE STATEMENTS: Atrial flutter with variable AV block Nonspecific ST abnormality Prolonged QT Abnormal ECG Compared to ECG 03/14/2022 15:32:25 ST (T wave) deviation now present Prolonged QT interval now present Sinus rhythm no longer present Ventricular premature complex(es) no longer present Myocardial infarct finding no longer present Electronically Signed On 03-17-22 08:01:54 TOOL AND DIE MANAGER by Erickson Del Real
[2022-03-17 08:27] LABS: Potassium 3.4 mmol/L (3.5-5.1)
[2022-03-17] MEDS: ASPIRIN 81 MG CHEWABLE TABLET PO SCH (09:00)
[2022-03-17] MEDS: HEPARIN 5000 UNIT/ML 1 ML VIAL SQ SCH ×2 (09:00→21:01)
[2022-03-17] MEDS: MULTIVITAMIN TAB PO SCH (09:00)
[2022-03-17] MEDS: ATORVASTATIN 20 MG TAB PO SCH (09:00)
[2022-03-17] MEDS: THIAMINE 200 MG/2 ML INJ IVP SCH (09:00)
[2022-03-17] MEDS ORDERED: POTASSIUM CL SA 10 MEQ TAB PO ONE ×2 (09:24→16:00)
[2022-03-17] MEDS ORDERED: MINERAL OIL 30 ML UCUP PO ONE (12:25)
[2022-03-17] MEDS: HYDROCODONE/CHLORPHEN 5 ML/OSYR PO PRN (19:36)
--- NOTE | 2022-03-17 20:52 | PN ---
Date of Progress Note: 03/17/2022 Reason: Dementia. Interval History: The patient's memory is about the same. EEG generalized slowing. No epileptiform abnormalities. Potassium 3.6. Creatinine stable. The patient is coughing quite a bit today. He h as pneumonia. No evidence for seizure or stroke to generate symptom. I would restart the Exelon and restart Namenda at 5 mg twice a day dose. Physical Examination: Vital Signs: He is awake. General: He is confused at baseline. Ocular motion full. [place] full. Strength greater than 4+. Pertinent Labs: EEG and labs as alluded to. Impression: Alzheimer disease. Plan: Restart the Exelon 6 b.i.d. and Namenda 5 b.i.d. He can be discharged once his pulmonary stat us allows. Thank you for the consult. MANAS Voice ID: [id number] Report ID: [id number]
[2022-03-17] MEDS: MEMANTINE HCL 10 MG TABLET PO SCH (21:01)
[2022-03-18] MEDS: PIPER TAZO 3.375 GM in NA CHLORIDE 0.9% 100 ML IV SCH ×3 (00:55→16:53)
--- NOTE | 2022-03-18 01:09 | P.PN ---
Date of Service: 03/17/22 Subjective Patient is clinically improving. Symptoms continue to improve. Physical Examination - Physical Exam General: Alert, Oriented x1, Demented, Confused Respiratory: Clear to auscultation bilaterally, Diminished Cardiovascular: No edema, Normal pulses, Normal S1 S2, No murmurs Gastrointestinal: Normal bowel sounds, Non-distended, No tenderness Neurological: Normal speech, Normal tone, Normal affect Assessment and Plan - Assessment --Aspiration pneumonia --Aflutter --Syncope/seizure. --Confusion/delirium --Alzheimer's dementia --Hypertension. --History of prostrate cancer. --Dementia. --Hyperlipidemia. --COVID-19 infection. --Overactive bladder. --Hypokalemia. --CKD 2. Stable. --Anemia of chronic disease. --DVT prophylaxis with heparin subQ. - Plan -IV abx -EEG reviewed -Cardiology and neurology consultation appreciated -steroid may have caused delirium; dc -repeated near syncope/syncope maybe from namenda because of orthostasis-hold this & exelon -Carotid Doppler reviewed -PT eval and treat appreciated -MRI brain negative for acute pathology- atrophy -Fall precautions. -Continue supportive care. -We will manage BP with hydralazine as needed.
[2022-03-18 07:15] LABS: Absolute Lymphocytes (CBC) 2.1 K/uL (0.7-4.9); Hematocrit 39.3 % (39.6-49.0); Lymphocytes % 24.1 % (15.3-44.8); MCV 92.4 fL (80-100); MPV 9.3 fL (7.6-11.3); RBC Red Blood Cell Count 4.25 M/uL (4.33-5.43)
[2022-03-18 07:38] LABS: Magnesium 2.1 mg/dL (1.6-2.4); Potassium 3.6 mmol/L (3.5-5.1)
--- NOTE | 2022-03-18 07:51 | RAD REPORT ---
EXAM DESCRIPTION: Julian Single View03/18/2022 6:48 am CLINICAL HISTORY: Cough COMPARISON: none FINDINGS: No significant change in the bilateral pulmonary opacities. Heart is enlarged mildly. IMPRESSION: No significant change in mild bilateral pulmonary opacities represent pneumonia
[2022-03-18] MEDS: HEPARIN 5000 UNIT/ML 1 ML VIAL SQ SCH ×2 (08:57→20:25)
[2022-03-18] MEDS: THIAMINE 200 MG/2 ML INJ IVP SCH (08:58)
[2022-03-18] MEDS: MULTIVITAMIN TAB PO SCH (09:00)
[2022-03-18] MEDS: MEMANTINE HCL 10 MG TABLET PO SCH (09:00)
[2022-03-18] MEDS: ATORVASTATIN 20 MG TAB PO SCH (09:00)
[2022-03-18] MEDS: ASPIRIN 81 MG CHEWABLE TABLET PO SCH (09:00)
[2022-03-18] MEDS: RIVASTIGMINE TARTRATE 1.5 MG PO SCH ×2 (09:00→17:11)
[2022-03-18] MEDS ORDERED: POTASSIUM 25 MEQ EFFERV TAB PO ONE (09:00)
[2022-03-18] MEDS: BENZONATATE 100 MG CAP PO PRN (12:38)
[2022-03-18] MEDS: NA CHLORIDE 0.9% 1,000 ML IV SCH (13:49)
--- NOTE | 2022-03-18 15:18 | RAD REPORT ---
EXAM DESCRIPTION: RAD - Barium Swallow Modified - 03/18/2022 3:13 pm CLINICAL HISTORY: ASPIRATION RISK Dysphagia COMPARISON: CTSTONE PROTOCOL dated 09/28/2011 TECHNIQUE: The patient was given liquid, semi-solid and solid forms of barium. Lateral view fluorosc opic imaging was performed in conjunction with speech pathology service. FINDINGS: Laryngeal penetration : cleared Pharyngeal residue: vallecular , pyriform Other : poor oral bolus clearance incomplete epiglottic inversion,inadequate Mastication . unable to clear retention independently or flow verbal cues for a dry swallow Total fluoroscopy time: 1 minutes 45 seconds
[2022-03-18] MEDS: LORazepam 2 MG/ML VIAL IV PRN (16:58)
[2022-03-18 21:52] VITALS: O2SAT 95
[2022-03-19] MEDS: PIPER TAZO 3.375 GM in NA CHLORIDE 0.9% 100 ML IV SCH ×2 (01:16→08:26)
--- NOTE | 2022-03-19 01:54 | P.PN ---
Date of Service: 03/18/22 Subjective CXR stable; pureed diet per Speech; Large BM after enema Physical Examination - Physical Exam General: Alert, Oriented x1, Demented, Confused Respiratory: Clear to auscultation bilaterally, Diminished Cardiovascular: No edema, Normal pulses, Normal S1 S2, No murmurs Gastrointestinal: Normal bowel sounds, Non-distended, No tenderness Neurological: Normal speech, Normal tone, Normal affect Assessment and Plan - Assessment --Aspiration pneumonia --Constipation --Aflutter --Syncope/seizure. --Confusion/delirium --Alzheimer's dementia --Hypertension. --History of prostrate cancer. --Dementia. --Hyperlipidemia. --COVID-19 infection. --Overactive bladder. --Hypokalemia. --CKD 2. Stable. --Anemia of chronic disease. --DVT prophylaxis with heparin subQ. - Plan -IV abx -Pureed diet -laxative with good relief -EEG reviewed -Cardiology and neurology consultation appreciated -steroid may have caused delirium; dc -repeated near syncope/syncope maybe from namenda because of orthostasis-hold this & exelon -Carotid Doppler reviewed -PT eval and treat appreciated -MRI brain negative for acute pathology- atrophy -Fall precautions. -Continue supportive care. -We will manage BP with hydralazine as needed.
[2022-03-19] MEDS: BENZONATATE 100 MG CAP PO PRN (06:48)
[2022-03-19] MEDS: ATORVASTATIN 20 MG TAB PO SCH (08:26)
[2022-03-19] MEDS: ASPIRIN 81 MG CHEWABLE TABLET PO SCH (08:26)
[2022-03-19] MEDS: THIAMINE 200 MG/2 ML INJ IVP SCH (08:26)
[2022-03-19] MEDS: HEPARIN 5000 UNIT/ML 1 ML VIAL SQ SCH (08:26)
[2022-03-19] MEDS: MULTIVITAMIN TAB PO SCH (08:26)
[2022-03-19 13:08] VITALS: BP 140/72; TEMP 98.6
== END 2022-03-19 15:30 | disposition home or self-care (01) | DRG 312 ==
LOC: ER 09:32 → ERHOLD 16:36 → 2ND 03-15 22:19 → OBSVTOIN 03-16 12:13
PROVIDERS: ADMIT Nurse Practitioner Family; ATTEND Hospitalist
DX: I95.2 Hypotension due to drugs (principal); J69.0 Pneumonitis due to inhalation of food and vomit; U07.1 COVID-19; G93.40 Encephalopathy, unspecified; I48.92 Unspecified atrial flutter; R55 Syncope and collapse; I48.91 Unspecified atrial fibrillation; F02.80 Dementia in other diseases classified elsewhere, unspecified severity, without behavioral disturbance, psychotic disturbance, mood disturbance, and anxiety; G30.9 Alzheimer's disease, unspecified; D64.9 Anemia, unspecified; E87.6 Hypokalemia; I12.9 Hypertensive chronic kidney disease with stage 1 through stage 4 chronic kidney disease, or unspecified chronic kidney disease; N18.2 Chronic kidney disease, stage 2 (mild); E78.5 Hyperlipidemia, unspecified; R29.6 Repeated falls; Z85.46 Personal history of malignant neoplasm of prostate; Z79.01 Long term (current) use of anticoagulants; N32.81 Overactive bladder
CPT/HCPCS: 36415; 70450; 70551; 71045; 72125; 74230; 80048; 80053; 80061; 81003; 82550; 82607; 82746; 83540; 83735; 83880; 84100; 84132; 84439; 84443; 84484; 85025; 87811; 92526; 92611; 93005; 93880; 94640; 95816; 96374; 97116; 97161; 97530; 99285; J1644; J1720; J2543; J3411; J7030; J7613; J7644

== ENCOUNTER 2022-05-18 12:49 | Emergency (ER) | payer OTHER ==
--- OUTSIDE RECORDS SUMMARY | 2022-05-18 12:52 | XMS REPORT | Continuity of Care Document ---
:1935 Author Organization [facility] t Address [address] [place] [address] Care Team Providers Name Role Phone Cezar Arrington MD Primary Care Physician Pillo PAEZ, Declan Rodriguez Attending Clinician 1, [facility] Attending Clinician Unavailable Doctor Unassigned, [place] Attending Clinician Unavailable Payers Payer Name Policy Type Policy Number Effective Date Expiration Date S ource Problems Condition Condition Condition Status Onset Resolution Last Treating Co mments Source Name Details Category Date Date Treatment Clinician Date Erectile Erectile Disease Active [facility] dysfunctio dysfunctio 12-02 Co llege n n 00:00: of following following 00 Medi sarah radical radical e prostatect prostatect enmanuel enmanuel Lower Lower Disease Active [facility] urinary urinary 12-02 College tract tract 00:00: of symptoms symptoms 00 Medici n (LUTS) (LUTS) e 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 08-15 Co llege sm sm 00:00: of 00 Medicin e Special Special Disease Active [facility] screening screening 08-15 [facility] for for 00:00: of malignant malignant 00 Medi sarah neoplasm neoplasm e of of prostate prostate Dementia Dementia Problem Active 2022-02-19 Memoria (disorder) (disorder) 13:03:52 l Active Hope Problem 02/19/2022 [facility] Hyperlipid Problem Active 2022-02-19 M nancy arellano Hyperlipid 13:03:52 l (disorder) eileen Romero n (disorder) Active Problem 02/19/2022 [facility] Hypertensi Hypertens Problem Active 2022-02-19 Memoria ve arianne 13:03:52 l disorder, disorder, Herm reginaldo systemic systemic arterial arterial (disorder) (disorder) Active Problem 02/19/2022 [facility] Memory Memory Problem Active 2022-02-19 Deo lukas impairment impairment 13:03:52 l (finding) (finding) Herm reginaldo Active Problem 02/19/2022 [facility] Allergies, Adverse Reactions, Alerts This patient has no known allergies or adverse reactions. Social History Social Habit Start Date Stop Date Quantity Comments Source Social History 2018-10-10 2018-10-10 [facility] 20:24:27 20:24:27 Alcohol intake 2015-11-20 2015-11-20 [facility] drinker [facility] 00:[facility]00 of [facility] (finding) Tobacco use and 2015-11-13 2015-11-[address] [facility] exposure 00[facility]00:00 00:00:00 [facility] Sex Assigned At [address] [facility] 00:00:00 00:00:00 [facility] Smoking Status Start Date Stop Date Source Tobacco smoking status 2022-02-16 19:25:06 2022-02-16 19:25:06 Desyi Heath Never smoker [facility] o Medicine Medications Ordered Filled Start Stop Current Ordering Indication Dosage Frequency Signature Comments Components Source Medication Medication Date Date Medication? Clinician (SIG) Name Name rivastigmin Yes = 1 cap, Me moria e 6 mg oral 9-07 PO, BID, # l capsule 16:42: 180 Hope 00 unknown unit, 1 Refill(s), Pharmacy: [facility], 177.8, cm, 10/15/21 13:30:00 CDT, Height, 81.364, kg, 10/15/21 13:30:00 CDT, Weight rivastigmin 0 Yes = 1 cap, Me moria e 6 mg oral 9-07 PO, BID, # l capsule 16:42: 180 Kumar 00 unknown unit, 1 Refill(s), Pharmacy: [facility], 177.8, cm, 10/15/21 13:30:00 CDT, Height, 81.364, kg, 10/15/21 13:30:00 CDT, Weight memantine 0 Yes 10 mg = 1 Mem oria 10 mg oral 7-15 tab, PO, l tablet 18:57: BID, # 180 Mildred nn 00 tab, 1 Refill(s), Pharmacy: [facility], 177.8, cm, 10/15/21 13:30:00 CDT, Height, 81.364, kg, 10/15/21 13:30:00 CDT, Weight memantine 0 Yes 10 mg = 1 Mem oria 10 mg oral 7-15 tab, PO, l tablet 18:57: BID, # 180 Mildred nn 00 tab, 1 Refill(s), Pharmacy: [facility], 177.8, cm, 10/15/21 13:30:00 [...] tab, 1 Mildred nn 00 Refill(s), Pharmacy: [facility], 177.8, cm, 05/20/21 13:24:00 RESOURCE AGENT, Height, 86.364, kg, 05/20/21 13:24:00 RESOURCE AGENT, Weight rivastigmin 2021-0 Yes = 1 cap, Me moria e 6 mg oral 2-17 PO, BID, # l capsule 19:41: 180 cap, 1 Herm reginaldo 00 Refill(s), Pharmacy: [facility], 177.8, cm, 05/20/21 13:24:00 RESOURCE AGENT, Height, 86.364, kg, 05/20/21 13:24:00 RESOURCE AGENT, Weight memantine 5 2021-0 Yes = 1 tab, Me moria mg oral 2-17 PO, BID, # l tablet 19:41: 180 tab, 1 Mildred nn 00 Refill(s), Pharmacy: [facility], 177.8, cm, 05/20/21 13:24:00 RESOURCE AGENT, Height, 86.364, kg, 05/20/21 13:24:00 RESOURCE AGENT, Weight rivastigmin 2021-0 Yes = 1 cap, Me moria e 6 mg oral 2-17 PO, BID, # l capsule 19:41: 180 cap, 1 Herm reginaldo 00 Refill(s), Pharmacy: [facility], 177.8, cm, 05/20/21 13:24:00 RESOURCE AGENT, Height, 86.364, kg, 05/20/21 13:24:00 RESOURCE AGENT, Weight rivastigmin 2020-0 Yes 6 mg = 1 Me moria e 6 mg oral 1-13 cap, PO, l capsule 14:11: BID, # 60 Mildred nn 00 cap, 4 Refill(s), Pharmacy: [facility], 180.34, cm, 11/08/19 13:22:00 CDT, Height, 85.909, kg, 11/08/19 13:22:00 CDT, Weight rivastigmin 2020-0 Yes 6 mg = 1 Me moria e 6 mg oral 1-13 cap, PO, l capsule 14:11: BID, # 60 Mildred nn 00 cap, 4 Refill(s), Pharmacy: [facility], 180.34, cm, 11/08/19 13:22:00 CDT, Height, 85.909, kg, 11/08/19 13:22:00 CDT, Weight rivastigmin 2020-0 Yes = 1 cap, Me moria e 4.5 mg 8-07 PO, BID, # l oral 18:34: 60 ea, 3 Kumar capsule 00 Refill(s), Pharmacy: [facility], 180.34, cm, 11/08/19 13:22:00 CDT, Height, 85.909, kg, 11/08/19 13:22:00 CDT, Weight rivastigmin 2020-0 Yes = 1 cap, Me moria e 4.5 mg 8-07 PO, BID, # l oral 18:34: 60 ea, 3 Hope capsule 00 Refill(s), Pharmacy: [facility], 180.34, cm, 11/08/19 13:22:00 CDT, Height, 85.909, kg, 11/08/19 13:22:00 CDT, Weight memantine 5 2020-0 Yes 5 mg = 1 Me moria mg oral 8-07 tab, PO, l tablet 18:33: BID, # 60 Nick n 00 tab, 4 Refill(s), Pharmacy: [facility], 180.34, cm, 11/08/19 13:22:00 CDT, Height, 85.909, kg, 11/08/19 13:22:00 CDT, Weight memantine 5 2020-0 Yes 5 mg = 1 Me moria mg oral 8-07 tab, PO, l tablet 18:33: BID, # 60 Nick n 00 tab, 4 Refill(s), Pharmacy: [facility], 180.34, cm, 11/08/19 13:22:00 CDT, Height, 85.909, kg, 11/08/19 13:22:00 CDT, Weight Memantine 2020-0 Yes 10 mg = 1 Mem oria hydrochlori 2-04 tab, PO, l de 10 MG 20:14: BID, # 60 Herm reginaldo Oral Tablet 00 tab, 3 [Namenda] Refill(s), Pharmacy: [facility] Memantine 2020-0 Yes 10 mg = 1 Mem oria hydrochlori 2-04 tab, PO, l de 10 MG 20:14: BID, # 60 Herm reginaldo Oral Tablet 00 tab, 3 [Namenda] Refill(s), Pharmacy: [facility] atorvastati 2018- Yes 20mg Take 20 mg Vipul n (LIPITOR) 0-28 by mouth. Col lege 20 MG 20:01: of tablet 03 Medicin e Multiple 2018- Yes 1{tbl} Take 1 Baylo r Vitamin 0-28 tablet by Kaser (MULTI-YAMILET 20:01: mouth. of MINS) TABS 03 Medicin e solifenacin 2018-04 Yes [id number] 10mg Take 1 Tab Vipul (VESICARE) 0-28 by mouth Colle ge 10 MG 00:00: daily. of tablet 00 Medicin e Memantine 2018-04 Yes 5 mg = 1 Deo lukas hydrochlori 0-08 tab, PO, l de 5 MG 19:11: BID, # 60 Mildred nn Oral Tablet 00 tab, 3 [Namenda] Refill(s), Pharmacy: [facility] Memantine 2018-04 Yes 5 mg = 1 Deo lukas hydrochlori 0-08 tab, PO, l de 5 MG 19:11: BID, # 60 Mildred nn Oral Tablet 00 tab, 3 [Namenda] Refill(s), Pharmacy: [facility] rivastigmin Yes 4.5 mg = 1 Memoria e 4.5 mg 8-06 cap, PO, l oral 18:49: BID, # 60 Hope capsule 00 cap, 3 Refill(s), Pharmacy: [facility] rivastigmin Yes 4.5 mg = 1 Memoria e 4.5 mg 8-06 cap, PO, l oral 18:49: BID, # 60 Hope capsule 00 cap, 3 Refill(s), Pharmacy: [facility] Aspirin 81 2019- Yes 81 mg = 1 [...] Mildred nn 00 cap, 3 Refill(s), Pharmacy: [facility] rivastigmin 2019-0 Yes 3 mg = 1 Me moria e 3 mg oral 7-10 cap, PO, l capsule 21:12: BID, # 60 Mildred nn 00 cap, 3 Refill(s), Pharmacy: [facility] rivastigmin 2019-0 No 5 mg, PO, M emoria e 7-10 Daily, 0 l 20:09: Refill(s) metoprolol 2019-0 Yes 50 mg, PO, M emoria extended [...] 7-10 Daily, 0 l 20:09: Refill(s) rivastigmin 2018-0 No 5 mg, PO, M emoria e 7-10 Daily, 0 l 20:09: Refill(s) metoprolol 2018- Yes 50 mg, PO, M emoria extended 7-10 Daily, 0 l release 20:09: Refill(s) Lisinopril 2019- Yes 10 mg, PO, M emoria 7-10 Daily, 0 l 20:09: Refill(s) Norvasc 2018-0 Yes 5 mg, PO, Memor ia 7-10 Daily, 0 l 20:09: Refill(s) Furosemide 2018- Yes 40 mg = 1 Me moria [...] PO, l 20:09: Daily, 0 Refill(s) Norvasc 0 Yes 5 mg, PO, Memor ia 7-10 BID, 0 l 20:09: Refill(s) lisinopril Yes 10 mg, PO, M emoria 7-10 Daily, 0 l 20:09: Refill(s) Cabergoline 2017-04 Yes .5mg Take 0.5 Ba ylor 0.5 MG TABS 2-10 mg by College 00:00: mouth 2 of 00 times Medicin weekly. e solifenacin 2017-04 2019- No [id number] 10mg Take 1 Tab Vipul (VESICARE) 2-10 - by mouth [facility] 10 MG 00:00: 00:00 daily. of tablet 00 :00 Medicin e VIAGRA 100 2016- Yes [id number] TAKE ONE [facility] MG tablet 04-09 TABLET BY [facility] 00:00: MOUTH of 00 DIRECTED Medicin e tadalafil 2017-0 Yes 5mg Take 1 Tab Ba ylor (CIALIS) 5 8-16 by mouth Colle ge MG tablet 00:00: as needed of 00 for Medicin Erectile e Dysfunctio n. [facility] 2015- Yes 1{tbl} QD Take [address] [facility] per 8-18 tablet by [facility] tablet 16:17: mouth Medical 26 daily. [place] [facility] 20[facility] QD Take [address] [facility] (LIPITOR) 8-18 by mouth Luke s 20 MG 16:17: daily. Medical tablet 26 [place] atorvasta Yes 20mg QD Take [address] [facility] (LIPITOR) 8-18 by mouth Luke s 20 MG 16:17: daily. Medical tablet 26 [place] multivitahi Yes 1{tbl} QD Take [address] [facility] per 8-18 tablet by [facility] tablet 16:17: mouth Medical 26 daily. [place] multivitahi Yes 1{tbl} QD Take [address] [facility] per 8-18 tablet by [facility] tablet 16:17: mouth Medical 26 daily. [place] atorvastati Yes 20mg QD Take [address] [facility] (LIPITOR) 8-18 by mouth Luke s 20 MG 16:17: daily. Medical tablet 26 [place] multivitahi Yes 1{tbl} QD Take [address] [facility] per 8-18 tablet by [facility] tablet 16:17: mouth Medical 26 daily. [place] atorvasta Yes 20mg QD Take [address] [facility] (LIPITOR) 8-18 by mouth Luke s 20 MG 16:17: daily. Medical tablet 26 [place] multivitahi Yes 1{tbl} QD Take [address] [facility] per 8-18 tablet by [facility] tablet 16:17: mouth Medical 26 daily. [place] atorvastati Yes 20mg QD Take [address] [facility] (LIPITOR) 8-18 by mouth Luke s 20 MG 16:17: daily. Medical tablet 26 [place] multivitahi Yes 1{tbl} QD Take [address] [facility] per 8-18 tablet by [facility] tablet 16:17: mouth Medical 26 daily. [place] atorvasta Yes 20mg QD Take [address] [facility] (LIPITOR) 8-18 by mouth Luke s 20 MG 16:17: daily. Medical tablet 26 Center celecoxib 2015-0 Yes 200mg Take 1 Cap B aylor (CELEBREX) 8-24 by mouth Colle ge 200 MG 00:00: daily. of capsule 00 Medicin e Avanafil 2013-0 Yes 200mg Take 200 [facility] (STENDRA) 5-14 mg by Kaser 200 MG TABS 00:00: mouth as of 00 needed. Medicin e Immunizations Ordered Immunization Filled Immunization Date Status Commen ts Source Name Name Influenza (whole) 2010-03-03 Completed [facility] 00:00:00 of Medicine Vital Signs Vital Name Observation Time Observation Value Comments Source Systolic blood 2019-01-28 20:00:00 121 mm[Hg] [facility] Medicine Diastolic blood 2019-01-28 20:00:00 69 mm[Hg] [facility] Medicine Heart rate 2019-01-28 20:00:00 83 /min [facility] ollege of Medicine Body height 2019-01-28 20:00:00 182.9 cm [facility] Body weight 2019-01-28 20:00:00 83.915 kg [facility] of Medicine BMI 2019-01-28 20:00:00 25.09 kg/m2 [facility] Systolic blood 2019-01-28 20:00:00 121 mm[Hg] [facility] Medicine Diastolic blood 2019-01-28 20:00:00 69 mm[Hg] [facility] Medicine Heart rate 2019-01-28 20:00:00 83 /min [facility] Body height 2019-01-28 20:00:[address] [facility] ollege of Medicine Body weight 2019-01-28 20:00:00 83.915 [facility] BMI 2019-01-28 20:00:00 25.09 kg/m2 [facility] Systolic (mm Hg) 2022-02-16 19:24:00 Deo Heath Diastolic (mm Hg) 2022-02-16 19:24:00 Andi Heath Heart Rate 2022-02-16 19:24:00 [facility] 2022-02-16 19:24:00 5 [ft_i] [facility] Weight 2022-02-16 19:24:00 [facility] BMI Calculated 2022-02-16 19:24:00 Memori al Kumar Systolic (mm Hg) 2021-10-15 18:22:00 Deo rial [facility] Diastolic (mm Hg) 2021-10-15 18:22:00 Mem orial Kumar Heart Rate 2021-10-15 18:22:00 [facility] Respitory Rate 2021-10-15 18:22:00 [facility] Height 2021-10-15 18:22:00 177.8 cm [facility] Weight 2021-10-15 18:22:00 [facility] BMI Calculated 2021-10-15 18:22:00 [facility]ori [facility] Systolic (mm Hg) 2021-05-20 19:13:00 Deo rial [facility] Diastolic (mm Hg) 2021-05-20 19:13:00 Mem orial [facility] Heart Rate 2021-05-20 19:13:00 [facility] Respitory Rate 2021-05-20 19:13:00 Memori al Kumar Height 2021-05-20 19:13:00 177.8 cm [facility] Weight 2021-05-20 19:13:00 [facility] BMI Calculated 2021-05-20 19:13:00 Memori al [facility] Systolic (mm Hg) 2020-11-10 18:35:00 Deo rial Kumar Diastolic (mm Hg) 2020-11-10 18:35:00 Mem orial Kumar Heart Rate 2020-11-10 18:35:00 [facility] Respitory Rate 2020-11-10 18:35:00 Memori al [facility] Height 2020-11-10 18:35:00 177.8 cm [facility] Weight 2020-11-10 18:35:00 [facility] BMI Calculated 2020-11-10 18:35:00 Memori al Kumar Systolic (mm Hg) 2020-05-12 19:40:00 Deo rial [facility] Diastolic (mm Hg) 2020-05-12 19:40:00 Mem orial [facility] Heart Rate 2020-05-12 19:40:00 [facility] Height 2020-05-12 19:40:00 182.88 cm [facility] Weight 2020-05-12 19:40:00 [facility] BMI Calculated 2020-05-12 19:40:00 Memori al [facility] Systolic (mm Hg) 2019-11-08 18:22:00 Deo rial Kumar Diastolic (mm Hg) 2019-11-08 18:22:00 Mem orial Kumar Heart Rate 2019-11-08 18:22:00 [facility] Respitory Rate 2019-11-08 18:22:00 Memori al [facility] Height 2019-11-08 18:22:00 180.34 cm [facility] Weight 2019-11-08 18:22:00 [facility] BMI Calculated 2019-11-08 18:22:00 Memori al [facility] Systolic (mm Hg) 2019-05-07 19:42:00 Deo rial Kumar Diastolic (mm Hg) 2019-05-07 19:42:00 Mem orial Kumar Heart Rate 2019-05-07 19:42:00 [facility] Respitory Rate 2019-05-07 19:42:00 Memori al [facility] Height 2019-05-07 19:42:00 182.88 cm [facility] Weight 2019-05-07 19:42:00 [facility] BMI Calculated 2019-05-07 19:42:00 Memori al [facility] Systolic (mm Hg) 2019-01-08 18:42:00 Deo rial [facility] Diastolic (mm Hg) 2019-01-08 18:42:00 Mem orial Kumar Heart Rate 2019-01-08 18:42:00 [facility] Respitory Rate 2019-01-08 18:42:00 Memori al Kumar Height 2019-01-08 18:42:00 182.88 cm [facility] Weight 2019-01-08 18:42:00 [facility] BMI Calculated 2019-01-08 18:42:00 Memori al Kumar Weight 2018-11-06 18:16:00 [facility] BMI Calculated 2018-11-06 18:16:00 Memori al [facility] Heart Rate 2018-11-06 18:16:00 [facility] Height 2018-11-06 18:16:00 177.8 cm [facility] Systolic (mm Hg) 2018-11-06 18:16:00 Deo rial [facility] Diastolic (mm Hg) 2018-11-06 18:16:00 Andi Heath BMI Calculated 2018-10-10 19:58:00 Andichiquita Fernandesann Height 2018-10-10 19:58:00 177.8 cm Sunny Heath Weight 2018-10-10 19:58:00 Sunny Heath Systolic (mm Hg) 2018-10-10 19:58:00 Deo Heath Diastolic (mm Hg) 2018-10-10 19:58:00 [facility] cristel Heath Heart Rate 2018-10-10 19:58:00 Sunny Heath Respitory Rate 2018-10-10 19:58:00 Marilyn Bishop Procedures Procedure Date / Time Performed Performing Clinician [facility] e PSA,TOTAL AND FREE 2019-01-28 22:33:00 Declan Ferro I [facility] Plan of Care Planned Activity Planned Date Details Comments Source Future Scheduled TESTOSTERONE, Ordered: [facility] Col lege of Test FREE/TOTAL SHGB 01/28/2019 Medicine [code = NOCPT] Future Scheduled MEDICARE AWV [code [facility] of Test = MEDICARE AWV] Medicine Future Scheduled TETANUS SHOT [facility] of Test (ADULT) [code = Medicine TETANUS SHOT (ADULT)] Future Scheduled BMI FOLLOW UP PLAN [facility] Test [code = BMI FOLLOW Medicine UP PLAN] Future Scheduled FALL SCREEN [code = [facility] of Test FALL SCREEN] Medicine Future Scheduled PNEUMOVAX >=65 [facility] Co llege of Test (PPSV23) [code = Medicine PNEUMOVAX >=65 (PPSV23)] Future Scheduled PREVNAR >= 65 [facility] Col lege of Test (PCV13) [code = Medicine PREVNAR >= 65 (PCV13)] Future Scheduled FLU VACCINE > 6 [facility] ollege of Test MONTHS [code = FLU Medicine VACCINE > 6 MONTHS] Encounters Start End Encounter Admission Attending Care Care Encounter Source Date/Time Date/Time Type Type Clinicians Facility Department ID 2022-06-16 2022-06-16 Outpatient JOHNY MCCLAIN [id number] Memoria 13:15:00 13:15:00 12 l Kumar 2022-02-16 2022-02-17 Outpatient JOHNY SANDY [id number] [facility] 19:15:00 05:59:59 Neurology 11 l Jocy Heath 2021-10-15 2021-10-16 Outpatient nullFlavo MNA [id number] Memoria 18:15:00 04:59:59 r Neurology 10 l Jocy Heath 2021-05-20 2021-05-21 Outpatient nullFlavo MNA [id number] Memoria 19:00:00 05:59:59 r Neurology 09 l Jocy Heath 2021-03-09 2021-03-09 Ambulatory nullFlavo MNA [id number] Memoria 19:45:00 19:45:00 Pre-Reg r Neurology 08 l Jocy Heath 2020-11-10 2020-11-11 Outpatient nullFlavo MNA [id number] Memoria 18:15:00 04:59:59 r Neurology 07 l Jocy Heath 2020-05-26 2020-05-28 Outside nullFlavo MNA [id number] Memoria 21:07:06 05:59:59 Medical r Neurology 00 l Kee Heath 2020-05-12 2020-05-13 Outpatient nullFlavo MNA [id number] Mem[facility] 19:30:00 05:59:59 r Neurology 06 l Jocy Lucianoann 2019-11-08 2019-11-09 Outpatient nullFlavo MNA [id number] Memoria 18:00:00 04:59:59 r Neurology 05 l Goshen Kumar 2019-11-05 2019-11-05 Outpatient MHIE MHIE [id number] Memoria 13:30:00 13:30:00 04 l Kumar 2019-05-07 2019-05-08 Outpatient nullFlavo MNA [id number] Mem[facility] 19:30:00 05:59:59 r Neurology 03 l Goshen Kumar 2019-01-28 2019-01-28 Office ALISA Ferro [id number] 14:25:28 16:12:55 Visit Declan I AMBULATOR [id number] Y [id number] [facility] 2019-01-28 2019-01-28 Office ALISA Ferro [id number] [facility] 14:25:28 16:12:55 Visit Declan I AMBULATOR [id number] College Y [id number] Medi sarah 300 e 2019-01-08 2019-01-09 Outpatient nullFlavo MNA [id number] Memoria 18:30:00 04:59:59 r Neurology 02 l Goshenerik Lucianoann 2018-11-06 2018-11-07 Outpatient nullFlavo MNA [id number] Memoria 18:00:00 04:59:59 r Neurology 01 l Jocy Heath 2018-10-31 2018-10-31 Neuro Intensivist Physician 1, Adc Lab [facility] [id number] 11:29:07 11:44:07 Visit Anabela [id number] [place] [id number] [place] [id number] 2018-10-31 2018-10-31 Orders Doctor PATRICIA [id number] 00:00:00 00:00:00 Only Unassigned, FLORIAN [id number] [place] [facility] [id number] 2018-10-10 2018-10-11 Outpatient nullFlavo MNA [id number] Memoria 20:00:00 04:59:59 r Neurology 00 l Goshenerik Lucianoann Results Test Description Test Time Test Comments [...] PSA, FREE (test code = <0.02 NG/ML 88936-8) PSA, % FREE (test code = (NOTE) SEE BELOW % [place] [address]-1) Tammy Lew Joanne ctrochemiluminescence Immunoassay wit h [...] Vahe WJ et al. SHANTE; 27 7: [id number]. Roach YT et al. Urology; 47 :518-524. Lainey RP et al. Urology; 48:45- 50.) Unless Otherwise Indicated, All Testing Performed At: Clinical Pathol ogy [facility], [address] [place] [id number] Fueler: Rick Raymond M.D. CLIA Number [id number] [place]. [id number] [facility]
[2022-05-18 14:54] LABS: Hematocrit 39.6 % (39.6-49.0); MCV 93.3 fL (80-100); MPV 9.1 fL (7.6-11.3); RBC Red Blood Cell Count 4.24 M/uL (4.33-5.43)
[2022-05-18 15:15] LABS: Potassium 2.9 mmol/L (3.5-5.1); Troponin High Sensitivity 9.8 pg/mL (<58.9)
--- NOTE | 2022-05-18 15:56 | RAD REPORT ---
EXAM DESCRIPTION: US - Extrem Venous W Compress Collin - 05/18/2022 3:44 pm CLINICAL HISTORY: SWELLING COMPARISON: Extrem Venous W Compress Collin dated 06/14/2017 TECHNIQUE: Real-time sonographic evaluation of the lower extremity deep venous systems was performed using color Doppler, grayscale, and compression. FINDINGS: Bilateral lower extremities. Normal compressibility, flow augmentation, phasic flow and spontaneous flow is identified in both the left and right lower extremity deep venous systems. No intraluminal filling defects seen. IMPRESSION: No DVT in either lower extremity.
[2022-05-18] MEDS ORDERED: POTASSIUM 25 MEQ EFFERV TAB ONE ×2 (15:58→16:53)
--- NOTE | 2022-05-18 15:58 | RAD REPORT ---
EXAM DESCRIPTION: US - Lower Extremity Arterial Bilat - 05/18/2022 3:44 pm CLINICAL HISTORY: Swelling COMPARISON: None FINDINGS: Right ankle-brachial index 1.2 Left ankle-brachial index 1.1 The common femoral, superficial femoral and popliteal arteries bilaterally demonstrate triphasic wave forms The posterior tibial and dorsalis pedis arteries demonstrate triphasic/biphasic waveforms bilaterally . IMPRESSION: No evidence of significant peripheral vascular disease. Normal ankle-brachial indices
[2022-05-18] MEDS ORDERED: LORazepam 2 MG/ML VIAL ONE (15:59)
[2022-05-18] MEDS ORDERED: KCL 20 MEQ/100 mL IVPB 0 ML IV ONE (15:59)
[2022-05-18] MEDS ORDERED: dexAMETHasone 10 MG/ML VIAL ONE (16:12)
[2022-05-18] MEDS ORDERED: KETOROLAC 30 MG/ML INJ ONE (16:13)
[2022-05-18 16:47] LABS: Urine Blood Trace-lysed (Negative); Urine Glucose Negative (Negative); Urine Protein Trace (Negative)
--- NOTE | 2022-05-18 16:49 | EDPHYS ---
Physician Documentation [facility] Name: Gigi Bar Age: 87 yrs Sex: Male : 1935 Arrival Date: 05/18/2022 Time: 12:49 Bed 15 Private MD: Cezar Arrington ED Physician Teofilo Bryan HPI: 05/18 15:27 This 87 yrs old Male presents to ER via Wheelchair with complaints of Abnormal Lab sb4 Results. 15:27 Patient with hypertension, prostate cancer, and dementia presents to ED after being sb4 sent by Dr. Arrington. UA was obtained in office and showed a UTI. He was also concerned about a lack of circulation to his feet. Patient nontoxic appearing. He has no complaints at this time. denies any acute changes in mental status. Does report some penile erythema.. Historical: - Allergies: 13:24 No Known Allergies; ap3 - PMHx: 13:24 Hypertension; Prostate Cancer; ap3 - PSHx: 13:25 Prostate surgery; ap3 - Immunization history:: Client reports receiving the 2nd dose of the Covid vaccine, Flu vaccine is up to date. - Social history:: Smoking status: Patient denies any tobacco usage or history of. ROS: 15:27 Constitutional: Negative for fever, chills, and weight loss, Eyes: Negative for injury, sb4 pain, redness, and discharge, ENT: Negative for injury, pain, and discharge, Cardiovascular: Negative for chest pain, palpitations, and edema, Respiratory: Negative for shortness of breath, cough, wheezing, and pleuritic chest pain, Abdomen/GI: Negative for abdominal pain, nausea, vomiting, diarrhea, and constipation, MS/Extremity: Negative for injury and deformity, Skin: Negative for injury, rash, and discoloration. 15:27 : Positive for penile redness. Exam: 15:27 Constitutional: This is a well developed, well nourished patient who is awake, alert, sb4 and in no acute distress. Head/Face: Normocephalic, atraumatic. Eyes: Extra-ocular motions intact. Periorbital areas with no swelling, redness, or edema. ENT: Mucous membranes moist. Cardiovascular: Regular rate and rhythm with a normal S1 and S2. Respiratory: Lungs have equal breath sounds bilaterally, clear to auscultation and percussion. No rales, rhonchi or wheezes noted. No increased work of breathing, no retractions or nasal flaring. Abdomen/GI: Soft, non-tender, no distension. Skin: Warm, dry with normal turgor. Normal color with no rashes, no lesions, and no evidence of cellulitis. MS/ Extremity: Pulses equal, no cyanosis. Neurovascular intact. Full, normal range of motion. 15:27 ECG was reviewed by the Attending Physician. Vital Signs: 13:20 Temp 98.7; Weight 79.38 kg; ap3 13:20 BP 124 / 64; ap3 13:20 Pulse 56; Pulse Ox 97% ; ap3 15:05 BP 175 / 74; Pulse 68; Resp 16; Pulse Ox 99% on R/A; db 17:40 BP 116 / 54; Pulse 80; Resp 18; Temp 98.5(O); Pulse Ox 99% ; db MDM: 13:28 Patient medically screened. sb4 15:31 Differential diagnosis: UTI, MELANI, dehydration, peripheral arterial disease. sb4 16:48 Data reviewed: vital signs, nurses notes, lab test result(s), EKG, I have discussed the sb4 patient's presentation/case with the attending Emergency Department Physician; and as a result, I will discharge patient. 05/18 13:29 Order name: Urine Microscopic Only sb4 05/18 13:29 Order name: CBC w/o diff sb4 05/18 13:29 Order name: BMP sb4 05/18 13:29 Order name: BNP sb4 05/18 13:29 Order name: Troponin High Sensitivity sb4 05/18 14:55 Order name: CBC without Diff; Complete Time: 15:18 EDMS 05/18 14:40 Order name: Lower Extremity Arterial Bilat US sb4 05/18 15:19 Order name: Basic Metabolic Panel; Complete Time: 15:19 EDMS 05/18 15:19 Order name: Troponin High Sensitivity; Complete Time: 15:19 EDMS 05/18 15:19 Order name: NT PRO-BNP; Complete Time: 15:19 EDMS 05/18 15:56 Order name: US; Complete Time: 15:58 EDMS 05/18 16:47 Order name: Urine Dipstick-Ancillary; Complete Time: 16:48 EDMS 05/18 17:10 Order name: Urine Microscopic Only; Complete Time: 17:17 EDMS 05/18 13:29 Order name: Urine Dipstick-Ancillary (obtain specimen); Complete Time: 16:57 sb4 05/18 13:29 Order name: IV Saline Lock; Complete Time: 14:42 sb4 05/18 14:38 Order name: EKG - Nurse/Tech; Complete Time: 14:59 sb4 05/18 15:58 Order name: US; Complete Time: 15:58 EDMS EC:27 Rate is 61 beats/min. Rhythm is regular, Normal Sinus Rhythm. PA interval is normal at sb4 202 msec. QRS interval is normal at 104 msec. QT interval is prolonged at 488 msec. Administered Medications: 16:09 Drug: Ativan (LORazepam) 0.5 mg Route: IVP; Site: right antecubital; db 17:02 Follow up: Response: No adverse reaction db 16:10 Drug: Potassium Effervescent Tablet 50 mEq Route: PO; db 17:02 Follow up: Response: No adverse reaction db 16:13 Not Given (Patient Refused): Potassium Chloride 20 mEq IV at calculated rate once; sb4 administer over 1-2 hours 16:31 Drug: Ativan (LORazepam) 0.5 mg Route: IVP; Site: right antecubital; db 17:03 Follow up: Response: No adverse reaction db 17:02 Drug: Potassium Effervescent Tablet 50 mEq Route: PO; db 17:50 Follow up: Response: No adverse reaction db Disposition Summary: 05/18/22 16:48 Discharge Ordered Location: Home sb4 Problem: an ongoing problem sb4 Symptoms: are unchanged sb4 Condition: Stable sb4 Diagnosis - UTI/ Urinary tract infection, site not specified sb4 Followup: sb4 - With: - When: As needed - Reason: Recheck today's complaints, Continuance of care, Re-evaluation by your physician Discharge Instructions: - Discharge Summary Sheet sb4 - Urinary Tract Infection, Adult, [id number] sb4 Forms: - Medication Reconciliation Form sb4 - Thank You Letter sb4 - Antibiotic Education sb4 - Prescription Opioid Use sb4 Prescriptions: - cefpodoxime 100 mg Oral Tablet - take 1 tablet by ORAL route every 12 hours for 10 days take with food; 20 sb4 tablet; Refills: 0, Product Selection Permitted Signatures: Dispatcher [employer] Zeina Vega RN RN ap3 Tigist Chen RN RN db Gloria Curran, TORRES MACDONALD sb4
--- NOTE | 2022-05-18 16:49 | ER ---
Nurse's Notes [facility] Name: Gigi Bar Age: 87 yrs Sex: Male : 1935 Arrival Date: 05/18/2022 Time: 12:49 Bed 15 Private MD: Cezar Arrington Diagnosis: UTI/ Urinary tract infection, site not specified Presentation: 05/18 13:21 Chief complaint: Spouse and/or significant other states: they were sent by Dr. Levy ap3 office for possible Kidney infection and poor circulation to his feet. Coronavirus screen: At this time, the client does not indicate any symptoms associated with coronavirus-19. Ebola Screen: No symptoms or risks identified at this time. Initial Sepsis Screen: Does the patient meet any 2 criteria? No. Patient's initial sepsis screen is negative. Does the patient have a suspected source of infection? Yes: Dysuria/Frequency/Urgency/UTI. Risk Assessment: Do you want to hurt yourself or someone else? Patient reports no desire to harm self or others. Onset of symptoms was May 18, 2022. 13:21 Method Of Arrival: Wheelchair ap3 13:21 Acuity: NATALIE 3 ap3 Triage Assessment: 13:25 General: Appears in no apparent distress. Behavior is calm. Pain: Denies pain. Neuro: ap3 Level of Consciousness is awake, alert, obeys commands, Oriented to person, place. Cardiovascular: Patient's skin is warm and dry. Pulses are palpable in right dorsalis pedis artery and left dorsalis pedis artery. Respiratory: Airway is patent Respiratory effort is even, unlabored. : Parent/caregiver report the patient having urinary frequency. Musculoskeletal: Swelling present in right foot and left foot. Historical: - Allergies: 13:24 No Known Allergies; ap3 - PMHx: 13:24 Hypertension; Prostate Cancer; ap3 - PSHx: 13:25 Prostate surgery; ap3 - Immunization history:: Client reports receiving the 2nd dose of the Covid vaccine, Flu vaccine is up to date. - Social history:: Smoking status: Patient denies any tobacco usage or history of. Screenin:26 Abuse screen: Denies threats or abuse. Nutritional screening: No deficits noted. ap3 Tuberculosis screening: No symptoms or risk factors identified. 17:40 [facility] ED Fall Risk Assessment (Adult) History of falling in the last 3 months, db including since admission Yes- fall prone (multiple falls) (3 pts) Confusion or Disorientation Yes (5 pts) Intoxicated or Sedated No (0 pts) Impaired Gait Yes (1 pt) Mobility Assist Device Used Yes (1 pt) Altered Elimination No (0 pt) Score/Fall Risk Level 3 or more points = High Risk Oriented to surroundings, Maintained a safe environment, Educated pt \T\ family on fall prevention, incl call for assistance when getting out of bed. Assessment: 15:04 Reassessment: Patient appears in no apparent distress at this time. Patient and/or db family updated on plan of care and expected duration. Pain level reassessed. patient sent to ER by PCP. noted bilateral swelling feet. family states patient fell yesterday and has frequent falls. patient appears confused. General: Appears in no apparent distress. Behavior is agitated. Neuro: Level of Consciousness is awake, alert, confused, Oriented to person. Respiratory: Airway is patent Respiratory effort is even, unlabored, Respiratory pattern is regular, symmetrical. 15:05 Reassessment: technician support engineer at patient bedside. db 16:10 Reassessment: patient trying to get out of bed. agitated. notified provider. patient db given ativan 0.5 mg. 16:45 Reassessment: Patient appears in no apparent distress at this time. Patient and/or db family updated on plan of care and expected duration. Pain level reassessed. patient now comfortable and sleeping. 17:40 Reassessment: Patient appears in no apparent distress at this time. Patient and/or db family updated on plan of care and expected duration. Pain level reassessed. Vital Signs: 13:20 Temp 98.7; Weight 79.38 kg; ap3 13:20 BP 124 / 64; ap3 13:20 Pulse 56; Pulse Ox 97% ; ap3 15:05 BP 175 / 74; Pulse 68; Resp 16; Pulse Ox 99% on R/A; db 17:40 BP 116 / 54; Pulse 80; Resp 18; Temp 98.5(O); Pulse Ox 99% ; db ED Course: 12:49 Patient arrived in ED. mr 12:50 Cezar Arrington MD is Private Physician. mr 13:24 Triage completed. ap3 13:25 [facility] Curran [facility]. sb4 13:25 Teofilo Bryan MD is Attending Physician. sb4 13:26 Arm band placed on right wrist. ap3 14:42 Troponin High Sensitivity Sent. bc6 14:42 BNP Sent. bc6 14:42 CBC w/o diff Sent. bc6 14:42 BMP Sent. bc6 14:42 Inserted saline lock: 20 gauge in right antecubital area, using aseptic technique. bc6 14:46 Tigist Chen, RN is Primary Nurse. db 16:45 Straight cath inserted, using sterile technique, 14 Fr. Specimen obtained. db 16:48 Cezar Arrington MD is Referral Physician. sb4 16:58 Patient has correct armband on for positive identification. Bed in low position. Call db light in reach. Side rails up X 1. Client placed on continuous cardiac and pulse oximetry monitoring. NIBP monitoring applied. Warm blanket given. 17:40 No provider procedures requiring assistance completed. IV discontinued, intact, db bleeding controlled, No redness/swelling at site. Administered Medications: 16:09 Drug: Ativan (LORazepam) 0.5 mg Route: IVP; Site: right antecubital; db 17:02 Follow up: Response: No adverse reaction db 16:10 Drug: Potassium Effervescent Tablet 50 mEq Route: PO; db 17:02 Follow up: Response: No adverse reaction db 16:13 Not Given (Patient Refused): Potassium Chloride 20 mEq IV at calculated rate once; sb4 administer over 1-2 hours 16:31 Drug: Ativan (LORazepam) 0.5 mg Route: IVP; Site: right antecubital; db 17:03 Follow up: Response: No adverse reaction db 17:02 Drug: Potassium Effervescent Tablet 50 mEq Route: PO; db 17:50 Follow up: Response: No adverse reaction db Medication: 17:40 VIS not applicable for this client. db Outcome: 16:48 Discharge ordered by . sb4 17:40 Discharged to home ambulatory. db 17:40 Condition: stable 17:40 Discharge instructions given to patient, Instructed on discharge instructions, follow up and referral plans. Prescriptions given X 1. 17:53 Patient left the ED. db Signatures: Tressa Giraldo mr Zeina Moreau, RN RN ap3 Tigist Chen, RN RN db Gloria Curran PA-C PA-C sb4 Giselle Lewis bc6 Corrections: (The following items were deleted from the chart) 17:50 15:04 Reassessment: Patient appears in no apparent distress at this time. Patient db and/or family updated on plan of care and expected duration. Pain level reassessed. Patient is alert, oriented x 3, equal unlabored respirations, skin warm/dry/pink. patient sent to ER by PCP. noted bilateral swelling feet. family states patient fell yesterday and has frequent falls. patient appears confused db 17:50 16:45 Reassessment: Patient appears in no apparent distress at this time. Patient db and/or family updated on plan of care and expected duration. Pain level reassessed. Patient is alert, oriented x 3, equal unlabored respirations, skin warm/dry/pink. patient now comfortable and sleeping db
[2022-05-18 17:07] LABS: Urine Bacteria 20-50 /HPF (<20); Urine Mucus 2+ /HPF (None Seen); Urine WBC Clump Rare /HPF (None Seen)
[2022-05-18 18:13] VITALS: O2SAT 99
[2022-05-18 18:19] VITALS: BP 116/54; TEMP 98.5
== END 2022-05-18 17:53 | disposition home or self-care (01) ==
LOC: ER 12:49
DX: N39.0 Urinary tract infection, site not specified (principal); I10 Essential (primary) hypertension; Z85.46 Personal history of malignant neoplasm of prostate
CPT/HCPCS: 87088; 87086; 80048; 36415; 85027; 84484; 83880; 93925; 93970; J1100; 81003; 81015; J3480